=== PATIENT | female | born 1990 | race Caucasian/White ===

== ENCOUNTER 2018-01-04 18:46 | Outpatient (REF) | payer BC, SELFPAY ==
[2018-01-04 22:33] LABS: ALT 51 U/L (12-78); AST 22 U/L (15-37); Albumin 3.9 g/dL (3.4-5.0); Alkaline Phosphatase 98 U/L (46-116); Anion Gap 10.9 mmol/L (3-11); BUN 15 mg/dL (7-18); Bilirubin, Total 0.2 mg/dL (0.2-1.0); CO2 25.1 mmol/L (21.0-32.0); CREATININE 0.77 mg/dL (0.55-1.02); Chloride 106 mmol/L (98-107); Glucose 81 mg/dL (70-100); Potassium 4.1 mmol/L (3.5-5.1); Sodium 142 mmol/L (136-145); Total Protein 7.7 g/dL (6.4-8.2)
== END 2018-01-04 19:06 ==
LOC: NCHCN 18:46
PROVIDERS: PCP Nurse Practitioner Family; Visit Provider Nurse Practitioner Family
DX: Z00.01 Encounter for general adult medical examination with abnormal findings (principal)
CPT/HCPCS: 80053

== ENCOUNTER 2019-11-29 03:03 | Outpatient (CLI) | payer MEDICAID, SELFPAY ==
[2019-11-29 10:17] LABS: HCG Quant, Pregnancy < 1 mIU/mL (1-3)
== END 2019-11-29 03:23 ==
PROVIDERS: PCP Registered Nurse
DX: N91.2 Amenorrhea, unspecified (principal)
CPT/HCPCS: 36415; 84702

== ENCOUNTER 2020-02-20 04:06 | Outpatient (CLI) | payer MEDICAID, SELFPAY ==
[2020-02-20 13:02] LABS: HCG Quant, Pregnancy 40 mIU/mL (1-3)
== END 2020-02-20 04:26 ==
PROVIDERS: PCP Registered Nurse
DX: Z32.01 Encounter for pregnancy test, result positive (principal)
CPT/HCPCS: 36415; 84702

== ENCOUNTER 2020-02-22 03:22 | Outpatient (CLI) | payer MEDICAID, SELFPAY ==
[2020-02-22 12:03] LABS: HCG Quant, Pregnancy 104 mIU/mL (1-3)
== END 2020-02-22 03:42 ==
PROVIDERS: PCP Registered Nurse
DX: Z32.01 Encounter for pregnancy test, result positive (principal)
CPT/HCPCS: 36415; 84702

== ENCOUNTER 2020-03-06 20:48 | Outpatient (CLI) | payer MEDICAID, SELFPAY ==
[2020-03-06 14:29] LABS: HCG Quant, Pregnancy 8968 mIU/mL (1-3)
== END 2020-03-06 21:08 ==
PROVIDERS: PCP Registered Nurse; Visit Provider Advanced Practice Midwife
DX: O20.0 Threatened abortion (principal)
CPT/HCPCS: 36415; 86850; 86900; 86901; 84702

== ENCOUNTER 2020-04-07 14:14 | Emergency (ER) | payer MEDICAID, SELFPAY ==
[2020-04-07 14:35] VITALS: BP 107/80; PULSE 73; RESP 16; TEMP 36.1; O2SAT 99
--- NOTE | 2020-04-07 14:45 | W.ED.GENAD ---
Discharge Plan Disposition Patient Disposition: HOME Condition: Stable Discharge Details Clinical Impression: Lumbosacral strain, Primary Care Provider: KANIKA SANTOS ED Provider: Daisy Houston Home Meds and New Rx's Prescriptions: Continued prenat.vits,candelaria,jof-nyma-hgvbj Tablet See Rx Instructions PO DAILY RF: 0 cholecalciferol (vitamin D3) 25 mcg (1,000 unit) capsule 25 mcg PO DAILY RF: 0 Unisom (doxylamine) 25 mg Tablet 25 mg PO QHS PRNRF: 0 vitamin B6-vitamin E-magnesium Tablet 1 tab PO TID RF: 0 Discharge Instructions Instructions: (ED), Low Back Strain (ED) Additional Instructions: Follow up with primary care provider in 3-5 days. Return to ED sooner if any worsening or concerns. Increase oral fluids. Please take Tylenol with food every 4-6 hours as needed for pain and swelling. Please return to the ED for any vaginal bleeding, worsening abdominal pain, or any concerns. Alternate ice and heat to your lower back. Today we were able to see the baby moving and babies heart beat on bedside ultrasound. Referrals: KANIKA SANTOS, CORE DRILLING SUPERVISOR [Primary Care Provider] - Medical Decision Making 29-year-old female presents to the ED with chief complaint of abdominal cramping and left lower lumbar tenderness after a abdominal injury yesterday. Patient is 10 weeks 2 para 1. She reports that she went to grab her 3-year-old who was falling over a gate, caught him leaning over a gate hitting her abdomen. Since then she has had intermittent abdominal cramping, some left flank pain with sharp shooting pain that are worse with walking and movement. There is no contusions or abrasions noted to her abdominal wall. movement was noted at bedside ultrasound and heart activity. M-mode not functional during exam was unable to document the heartbeat. Patient denies any vaginal discharge or bleeding. Patient did take Tylenol prior to arrival. 1451: Page out to on-call MANAGER LAUNDRY for consult and possible monitoring. At this time movement and heart activity was noted on bedside ultrasound. Patient does not have any vaginal discharge or bleeding I do suspect that this is a musculoskeletal strain however I will consult with MANAGER LAUNDRY. Spoke with Jenifer Bustamante who is on-call for MANAGER LAUNDRY services discussed patient case in details with her she does not recommend any need for monitoring upon the floor she states that the bedside ultrasound with activity and heart movement should be fine. At this time most likely etiology is musculoskeletal pain and lumbar sacral strain. Discussed home care and strict return instructions with patient who verbalized understanding. This text was generated using [employer] dictation system, please disregard any oddities of phrase or misspellings. HPI General Mode of arrival: ambulatory. Date/Time Provider Initiated Documentation: 04/07/20 14:19. Limitations to Documentation: no limitations. Information obtained by: patient. HPI Narrative: 29-year-old female presents to the ED with chief complaint of abdominal cramping and left lower lumbar tenderness after a abdominal injury yesterday. Patient is 10 weeks 2 para 1. She reports that she went to grab her 3-year-old infant who was falling over a gate, caught him leaning over a gate hitting her abdomen. Since then she has had intermittent abdominal cramping, some left flank pain with sharp shooting pain that are worse with walking and movement. There is no contusions or abrasions noted to her abdominal wall. movement was noted at bedside ultrasound and heart activity. M-mode not functional during exam was unable to document the heartbeat. Patient denies any vaginal discharge or bleeding. Patient did take Tylenol prior to arrival. Related Data Home Medications Medication Instructions Recorded Confirmed cholecalciferol (vitamin D3) 25 25 mcg PO DAILY 03/06/20 04/07/20 mcg (1,000 unit) capsule prenat.vits,candelaria,[id number]-pdihn See Rx Instructions PO DAILY 03/06/20 04/07/20 Unisom (doxylamine) 25 mg PO QHS PRN 04/07/20 04/07/20 vitamin B6-vitamin E-magnesium 1 tab PO TID 04/07/20 04/07/20 Allergies Allergy/AdvReac Type Severity Reaction Status Date / Time Sulfa (Sulfonamide Allergy Intermediate vomiting Verified 04/07/20 14:40 Antibiotics) General Stated Complaint: Abd Prob YASEMIN: 3 Review of Systems Narrative: Constitutional: Negative for weight loss, alert and oriented, well groomed, normal body habitus, appears comfortable. HEENT: Denies trauma, headaches, blurry vision, nasal discharge, sore throat, trouble swallowing. Chest: Denies chest pain, palpitations, irregular rhythm, hypertension. Respiratory: Denies Shortness of breath, cough, hemoptysis. GI: Denies abdominal pain, nausea, vomiting, diarrhea, constipation. : Denies dysuria, hematuria, flank pain, rectal bleeding. Neuro: Denies dizziness, blurry vision, weakness, syncope, headache or facial numbness. Hematologic: Denies easy bruising, intolerance to heat or cold, hair loss. [facility] Social History Smoking/Tobacco Use Status: Never Smoking risk assessment performed?: Yes Alcohol Intake: never Drug use: Never Substance use type: does not use Do you feel safe at home: Yes Do you feel safe in your relationship?: Yes History History 3 Para 1 Hx # Term Pregnancies 1 Multiple births 0 Hx # Pregnancies 0 Ectopic pregnancies 0 AB induced 0 Hx Number of Living Children 1 AB spontaneous 1 Exam Narrative Exam Narrative: Constitutional: Alert and oriented x3. Appears stated age. Normal body habitus. Head: Normocephalic, no trauma. Eyes: Pupils PERRLA, Red reflex noted, EOM's intact. Eyelids symmetrical without lesions, discharge, or swelling. ENT: Bilateral TM's WNL, External ear normal to inspection, no mastoid TTP, swelling, or erythema, Nasal turbinates WNL, no nasal discharge. Normal dentition, Posterior pharynx WNL, no exudate. Chest: RRR, Normal S1, S2, distal pulses intact. Resp: Lungs clear to auscultation bilaterally, no wheezes, rales, or rhonchi. Musculoskeletal: Normal gait, 5/5 strength to all four extremities. Abdomen: Soft, nondistended, nontender to palpation. No signs of injury noted on abdominal wall, Skin: No suspicious rashes or lesions. Capillary refill less than 2 sec. Neurologic: Cranial nerves II-XII intact. Alert and oriented x 3. DTR's intact. Hematologic/Lymphatic: No ecchymosis, no lymphadenopathy. Course Vital Signs Vital signs: Vital Signs Temperature 36.1 C L 04/07/20 14:35 Pulse 73 04/07/20 14:35 Respiratory Rate 16 04/07/20 14:35 Blood Pressure 107/80 04/07/20 14:35 Pulse Oximetry 99 04/07/20 14:35 Temperature 36.1 C L 04/07/20 14:35 Temperature Source Temporal Artery Scan 04/07/20 14:35 Pulse 73 04/07/20 14:35 Respiratory Rate 16 04/07/20 14:35 Respiratory Effort Non-Labored 04/07/20 14:39 Blood Pressure 107/80 04/07/20 14:35 Blood Pressure Position Supine 04/07/20 14:35 Pulse Oximetry 99 04/07/20 14:35 Oxygen Delivery Method Room Air 04/07/20 14:35 Oxygen Flow Rate 0 04/07/20 14:35 Pain Level 5 04/07/20 14:43
== END 2020-04-07 19:20 | disposition home or self-care (01) ==
LOC: ER 20:28
PROVIDERS: Emergency Provider Registered Nurse Emergency; PCP Registered Nurse
DX: O99.891 Other specified diseases and conditions complicating pregnancy (principal); S39.092A Other injury of muscle, fascia and tendon of lower back, initial encounter; W01.198A Fall on same level from slipping, tripping and stumbling with subsequent striking against other object, initial encounter; Z3A.10 10 weeks gestation of pregnancy
CPT/HCPCS: 99282; 99283

== ENCOUNTER 2020-04-09 04:06 | Outpatient (CLI) | payer MEDICAID, SELFPAY ==
[2020-04-09 15:50] LABS: Kit/Specimen SENT
[2020-04-09 16:31] LABS: Abs Immature Grans 0.06 10^3/uL (0.0-0.06); Absolute Basophil Count 0.03 10^3/uL (0.0-0.2); Absolute Eosinophil Count 0.05 10^3/uL (0.0-0.7); Absolute Monocyte Count 0.63 10^3/uL (0.1-0.8); Absolute Neutrophil Count 8.28 10^3/uL (1.2-6.7); Basophils % 0.3; Eosinophils % 0.4; HCT 39.1 % (36.0-46.0); HGB 13.7 g/dL (11.2-15.7); Immature Grans % 0.5; MCH 32.5 pg (27.0-33.0); MCV 92.7 fL (80-95); MPV 9.2 fL (8.0-11.0); Monocytes % 5.5; Neutrophils % 72.3; Nucleated RBC 0 %; Platelet Count 309 10^3/uL (130-400); RBC 4.22 10^6/uL (3.93-5.22); RDW 12.2 % (11.7-14.6); WBC 11.45 10^3/uL (4.4-10.8)
[2020-04-09 16:55] LABS: TSH (W/Ref FT4) 1.23 uIU/mL (0.36-3.74)
[2020-04-11 09:16] LABS: Hepatitis B Surface Ag Negative (Negative)
[2020-04-11 09:59] LABS: HIV-1/2 Ag & Ab Screen Negative (Negative)
[2020-04-11 10:10] LABS: Hepatitis C Ab w Rflx HCV PCR Negative (Negative)
[2020-04-11 10:39] LABS: Varicella IgG Antibody Positive (See Note)
[2020-04-11 10:42] LABS: Rubella IgG Ab (UVM) Positive (See Note)
[2020-04-11 14:13] LABS: Syphilis Total Ab w/Reflex Nonreactive (Nonreactive)
[2020-04-16 16:10] LABS: Result Summary NEGATIVE; Specimen WB Whole Blood
== END 2020-04-09 04:26 ==
PROVIDERS: Advanced Practice Midwife; PCP Registered Nurse; Visit Provider Advanced Practice Midwife
DX: Z34.91 Encounter for supervision of normal pregnancy, unspecified, first trimester (principal); Z11.4 Encounter for screening for human immunodeficiency virus [HIV]; Z11.59 Encounter for screening for other viral diseases
CPT/HCPCS: 36415; 86787; 86803; 87340; 87389; 81220; 84443; 85025; 86762; 86780

== ENCOUNTER 2020-04-09 16:00 | Outpatient (REF) | payer MEDICAID, SELFPAY ==
--- NOTE | 2020-04-09 15:00 | PAPFT_PTH ---
PATIENT: Lorrie Pedersen LOC: [facility] U#:[id number] AGE/SX: 29/F ROOM: RE04/09/[address]: Cecilia Pinto CNM : 1990 BED: DIS: 04/09/2020 SPEC #: [id number] RECD: 04/09/20 18:31 STATUS: CHRISTIANO REDanyelle #: [id number] STEVEN: 04/09/20 15:[address]: Cecilia Pinto DEPT: [facility] Cytology RECD BY: Angelina James ENTERED: 04/09/20 18:32 SP TYPE: PAPFT OTHR DR: Laya Owen Tissues: 1 - CX/ENDOCX FOR PAP SMEARS Procedures: PAP THIN PREP/UVM Screening HPV DNA PROBE Comments: [id number]
[2020-04-09 16:26] LABS: *AMPHETAMINES SCREEN URINE Negative (Negative); *BARBITURATES SCREEN URINE Negative (Negative); *BENZODIAZEPINES SCREEN URINE Negative (Negative); Cannabinoids THC Negative (Negative); Cocaine Screen,Urine Negative (Negative); METHADONE URINE SCREEN Negative (Negative); OPIATES URINE SCREEN Negative (Negative)
[2020-04-09 16:28] LABS: Tricyclic Antidepressants Negative (Negative)
[2020-04-11 15:30] LABS: Chlamydia Result Negative (Negative); GC Result Negative (Negative)
[2020-04-17 13:48] LABS: Buprenorphine Negative; Norbuprenorphine Negative
== END 2020-04-09 16:20 ==
LOC: LBN 16:00
PROVIDERS: PCP Registered Nurse; Visit Provider Advanced Practice Midwife
DX: Z12.4 Encounter for screening for malignant neoplasm of cervix (principal); Z34.91 Encounter for supervision of normal pregnancy, unspecified, first trimester
CPT/HCPCS: 80307; 87491; 87591; 88142; 87086; 87624

== ENCOUNTER 2020-05-13 01:34 | Outpatient (CLI) | payer MEDICAID, SELFPAY ==
--- NOTE | 2020-05-13 08:00 | DI.US_ITS ---
EXAM: US BREAST LT COMPLETE CLINICAL HISTORY: breast pain 10:30-11:00 O'Clock in left breast,MASTODYNIA,N64.4 TECHNIQUE: Ultrasound right breast performed using standard protocol. COMPARISON: No exams were available for comparison FINDINGS: No solid or cystic masses, hypoechoic foci, areas of abnormal shadowing, or areas of skin thickening. No evidence of ductal dilatation. IMPRESSION: No sonographically suspicious finding. BI-RADS Category 1 - Negative DATA REPOSITORY:
== END 2020-05-13 01:35 ==
PROVIDERS: PCP Registered Nurse; Visit Provider Advanced Practice Midwife
DX: N64.4 Mastodynia (principal)
CPT/HCPCS: 76642

== ENCOUNTER 2020-06-04 01:16 | Outpatient (CLI) | payer MEDICAID, SELFPAY ==
--- NOTE | 2020-06-04 08:15 | DI.US_ITS ---
EXAM: US OB 2-3 TRIMESTER CLINICAL HISTORY: ,Z34.90. TECHNIQUE: Transabdominal obstetrical ultrasound was performed. COMPARISON: None this gestation FINDINGS: There is a single viable intrauterine gestation with cardiac activity identified-139 bpm. Amniotic fluid: There is a normal amount of amniotic fluid. Placental location: The placenta is posterior fundal, right of center, grade 2,with no evidence of pl acenta previa.Distance from the tip of the placenta to the internal cervical os is 5.7 cm ANATOMY: A 3 vessel umbilical cord is seen. A four-chamber cardiac view was obtained. Right and left ventricular outflow tracts were imaged. There are no obvious abnormalities of the spinal column evident. There is no obvious abnormal ity of the anterior abdominal wall. stomach and urinary bladder are identified and there is no evidence of hydronephrosis. No abnormalities of the upper lip region are identified. No evidence of choroid plexus cysts i n the brain. Dating parameters place this at approximately 19 weeks and 2 days gestational age. BPD measures 19 weeks and 2 days HC measures 19 weeks 1 day AC measures 19 weeks and 2 days FL measures 19 weeks and 2 days Estimated weight is 283 gm-0 pounds 10 ounces Fetus is at the 97th percentile on the Hadlock scale. IMPRESSION:: Single viable intrauterine gestation which is approximately 19 weeks and 2 days gestati onal age, implying an BALAJI of October 27, 2020. There are no obvious anomalies evident on today's study. Resolution is somewhat less than optim al. The placenta is posterior fundal-right with no evidence of placenta previa. There is a normal amount of amniotic fluid. DATA REPOSITORY:
== END 2020-06-04 01:36 ==
PROVIDERS: PCP Registered Nurse; Visit Provider Advanced Practice Midwife
DX: Z34.92 Encounter for supervision of normal pregnancy, unspecified, second trimester (principal)
CPT/HCPCS: 76805

== ENCOUNTER 2020-07-02 03:21 | Outpatient (CLI) | payer MEDICAID, SELFPAY ==
[2020-07-02 12:38] LABS: Glucose,1 Hr (Glucola) 121 mg/dL (80-140)
== END 2020-07-02 03:22 | disposition home or self-care (01) ==
LOC: LBO 03:21
PROVIDERS: PCP Registered Nurse; Visit Provider Advanced Practice Midwife
DX: Z34.92 Encounter for supervision of normal pregnancy, unspecified, second trimester (principal); Z3A.22 22 weeks gestation of pregnancy
CPT/HCPCS: 36415; 82950

== ENCOUNTER 2020-07-04 09:58 | Emergency (ER) | payer MEDICAID, SELFPAY ==
[2020-07-04] VITALS (27 sets, daily range): BP systolic 100–128; BP diastolic 64–82; PULSE 81–108; RESP 14; TEMP 37.1; O2SAT 98–100
--- OUTSIDE RECORDS SUMMARY | 2020-07-04 10:04 | XMS_ITS | Encounter Summary ---
:1990 Author Organization Department of [facility] Address [address] [place] [id number] Support Name Relationship Address Phone NONE Unavailable Unavailable Unavailable Selected Encounter This section includes the information on record at [place] for the Encounter. Date/Time Encounter Type Encounter Description Reason Provider Source Jul 02, 2020 11:16 Outpatient Encounter GENERAL INTERNAL AM MEDICINE IHE Encounter Template Text not used by [facility] Encounter Notes: All associated encounter notes This section contains the clinical notes associated to the Encounter. Date/Time Encounter Note(s) Provider Source Jul 02, 2020 11:16 AM INFECTIOUS DISEASE COUNSELING CONSULT: CAROLYN LAI [facility] LOCAL TITLE: COVID NICKO VACCINE FOLLOW-UP [place] [facility] STANDARD TITLE: INFECTIOUS DISEASE COUNSELING CO NSULT DATE OF NOTE: JUL 02, 2020@11:16 ENTRY DATE: JUL 02, 2020@11:16:16 AUTHOR: CAROLYN BENSON EXP COSIGNER: URGENCY: STATUS: COMPLETED Nicko (Wilmar & Wilmar) COVID-19 Vaccine Jailyn ck-in Call: Assessed and discussed 's understanding o f the Nicko vaccine pause. Discussed this was done out of an abundance of c aution and in keeping with strong safety measures used by [facility] to protect Veterans who have been vaccinated with COVID-19 vaccines, [facility] as paused the use of this vaccine. The pause is due to reports of 6 cases of the rare blood clots, all in adult women under 50, and all occurred within 6 to 13 days after the women received a Nicko (also known as Wilmar & Wilmar) vaccine and emphasized th is event is very rare. Discussed the six events that did occur were in the first two weeks after receiving the Nicko (Wilmar and Wilmar) COVI D-19 vaccine so persons who received the vaccine more than two weeks ago wou ld be considered even less likely to have this happen. The type of blood clot that occurred is called Cerebral venous sinus thrombosis (or CVST). This type of blood clot forms in the brain and causes symptoms including headache, vision c hanges, or symptoms of a stroke. The people who have had this type of blood clot also have had low bl ood platelets. If you develop any of the follow symptoms please contact your healthcare team and inform them of your vaccination history: A headache that occurs 6 days or more aft er vaccination A headache that is different from other h eadaches you have had Confusion or trouble thinking clearly Visual changes, such as blurry vision Weakness, numbness, or trouble mo ving one or more parts of your body of your body, trouble speaking or seizures Tiny spots under the skin away from the area where you had the injection (this is a sign of low platelets) Discussed if your symptoms a re severe or you experience the following symptoms, please call 9-1-1: shortness of breath chest pain leg swelling persistent abdominal (belly) pain /es/ Carolyn Benson, Ph.D. Clinical Psychologist Signed: 07/02/2020 11:16
--- OUTSIDE RECORDS SUMMARY | 2020-07-04 10:04 | XMS_ITS | Encounter Summary ---
:1990 Author Organization Department of [facility] rs Address [address] [place] [id number] Support Name Relationship Address Phone NONE Unavailable Unavailable Unavailable Selected Encounter This section includes the information on record at [place] for the Encounter. Date/Time Encounter Type Encounter Reason Provider Source Description Jun 28, 2020 ADM SARSCOV2 GENERAL INTERNAL ICD-10-CM Z23 GEORGE LEVY 12:30 PM VAC AD26 .5ML MEDICINE Encounter for HER immunization with Provider Comments: Encounter for Immunization IHE Encounter Template Text not used by [place] Assessments - Encounter Diagnoses This section includes the primary and secondary diagnoses documented forthe Encounter. Date/Time Primary/Secondary Diagnosis Name Provider Source Diagnosis Jun 28, 2020 PRIMARY Encounter for JESS LEVY 12:59 PM immunization ER [facility] Surgical Procedures: All associated to the encounter This section includes all Surgical Procedures and Surgical Procedure Notes associated to the Encounter.Surgical Procedures This section includes all Surgical Procedures associated to the Encounter.Surgical Procedure Date/Time Procedure Procedure Type Procedure Provider Source Qualifiers Jun 28, 2020 ADM SARSCOV2 ADM SARSCOV2 MAGGIE LEVY 12:30 PM VAC AD26 .5ML VAC AD26 .5ML HER [facility] Surgical Notes There are no notes associated with this procedure. Surgical Procedure Date/Time Procedure Procedure Type Procedure Provider Source Qualifiers Jun 28, 2020 ADM SARSCOV2 VAC ADM SARSCOV2 WILMAN JONES BERGENFIELD 12:30 PM AD26 .5ML AD26 .5ML [facility] Surgical Notes There are no notes associated with this procedure. Immunizations: All administered on the encounter date This section contains immunizations associated to the Encounter. Immunization Series Date Issued Reaction Comments COVID-19 (NICKO), VECTOR-NR, 1 Jun 28, 2020 JSN; [id number]; 09/08/2020 RS-AD26, PF, 0.5 ML Encounter Notes: All associated encounter notes This section contains the clinical notes associated to the Encounter. Date/Time Encounter Note(s) Provider Source Jun 28, 2020 12:58 PM NURSING IMMUNIZATION NOTE: МАРИНА LEVY [facility] LOCAL TITLE: VAAES NSG COVID-19 VACCINE ADMINIS TRATION [facility] STANDARD TITLE: NURSING IMMUNIZATION NOTE DATE OF NOTE: JUN 28, 2020@12:58 ENTRY DATE: JUN 28, 2020@12:58:50 AUTHOR: RICCI LEVY EXP COSIGNER: URGENCY: STATUS: COMPLETED The patient was given the EUA fact sheet for thi s vaccine which lists the benefits and side effects of the vacc ine and which reviews the risks of the vaccine. The fact shee t was reviewed with the patient and they were given an opportunity to ask questions. The patient denied any prior severe reaction to this vaccine or its components. The patient gave verbal consent to receive the v accine. The patient received [place] COVID-19 Vaccine 0. 5 ml IM. MVX (Manuf); Lot#; Exp Date: JSN; [id number]; Administration Anatomic site: Left Deltoid Vaccine administered without complications. Th e patient was advised to remain in the facility for 15 андрей denise post vaccination. The patient was given a completed COVID-19 vac cination record card, a copy of the [place] Side Effects and Adverse Ivelisse nts Reporting Fact Sheet and instructed on how to report any adv erse reactions. /gus/ RICCI LEVY LPN Signed: 06/28/2020 12:59
--- NOTE | 2020-07-04 10:30 | DI.MRI_ITS ---
EXAM: MR ANGIO BRAIN WO CLINICAL HISTORY: concern for possible venous sinus thrombus ALAN in p TECHNIQUE: Multiplanar multisequence MRI of the brain was performed. COMPARISON: No exams were available for comparison FINDINGS: Non-contrast MRV was performed according to protocol. No filling defects are seen to suggest venous thrombosis. IMPRESSION: Normal noncontrast MRV. Results of this exam have been verbally communicated with provider. DATA REPOSITORY:
[2020-07-04 11:05] LABS: Bilirubin Negative (Negative); Blood Negative (Negative); Clarity Clear (Clear); Glucose Negative (Negative); Ketones Negative (Negative); Leukocyte Esterase Negative (Negative); Nitrite Negative (Negative); Specific Gravity >= 1.030 (1.005-1.025); Urobilinogen 0.2 EU/dL (Up TO 0.2)
[2020-07-04] MEDS: Metoclopramide 10 MG/2 ML VIAL IVP (11:07)
[2020-07-04] MEDS: diphenhydrAMINE 50 MG/ML VIAL IVP (11:07)
[2020-07-04] MEDS: Acetaminophen 500 MG TAB 1000 MG PO (11:07)
--- NOTE | 2020-07-04 11:15 | DI.MRI_ITS ---
EXAM: MR BRAIN WO CLINICAL HISTORY: headache, preg, j j vaccine TECHNIQUE: Multiplanar multisequence MRI of the brain was performed. COMPARISON: No exams were available for comparison FINDINGS: VENTRICLES AND EXTRA AXIAL SPACES: Normal in size and morphology for the patient's age. MIDLINE SHIFT: None. CEREBRAL PARENCHYMA: No focus of restricted diffusion to suggest acute infarct. No space-occupying le rock identified. HEMORRHAGE: None. BRAINSTEM/CEREBELLUM: Normal. CALVARIUM: Normal. VISUALIZED PARANASAL SINUSES/MASTOIDS:Clear. [place]: Normal flow void. PITUITARY GLAND: Unremarkable. OTHER FINDINGS: None. IMPRESSION: Unremarkable MRI of the brain. DATA REPOSITORY:
[2020-07-04 11:16] LABS: Abs Immature Grans 0.24 10^3/uL (0.0-0.06); Absolute Basophil Count 0.04 10^3/uL (0.0-0.2); Absolute Eosinophil Count 0.04 10^3/uL (0.0-0.7); Absolute Lymphocyte Count 1.92 10^3/uL (1.2-3.4); Absolute Monocyte Count 0.55 10^3/uL (0.1-0.8); Basophils % 0.4; Eosinophils % 0.4; HCT 39.7 % (36.0-46.0); HGB 13.3 g/dL (11.2-15.7); Immature Grans % 2.2; Lymphocytes % 17.4; MCHC 33.5 % (32.0-36.0); MCV 95.7 fL (80-95); MPV 8.8 fL (8.0-11.0); Neutrophils % 74.6; Nucleated RBC 0 %; Platelet Count 275 10^3/uL (130-400); RBC 4.15 10^6/uL (3.93-5.22); RDW-SD 45.8 fL; WBC 11.02 10^3/uL (4.4-10.8)
[2020-07-04 11:19] LABS: Absolute Neutrophil Count 8.22 10^3/uL (1.2-6.7)
[2020-07-04 11:28] LABS: ALT 18 U/L (14-59); AST 8 U/L (15-37); Albumin 3.1 g/dL (3.4-5.0); Alkaline Phosphatase 76 U/L (46-116); Anion Gap 11.3 mmol/L (3-11); BUN 6 mg/dL (7-18); Bilirubin, Total 0.2 mg/dL (0.2-1.0); CO2 22.7 mmol/L (21.0-32.0); CREATININE 0.5 mg/dL (0.55-1.02); Calcium 8.6 mg/dL (8.5-10.1); Chloride 106 mmol/L (98-107); Glucose 106 mg/dL (74-106); Potassium 3.6 mmol/L (3.5-5.1); Sodium 140 mmol/L (136-145); Total Protein 7.4 g/dL (6.4-8.2)
[2020-07-04] MEDS: Butalbital/Acetaminophen/Caffeine 50/325/40 TAB PO (13:16)
--- NOTE | 2020-07-04 13:45 | ED.GENADUL_ITS ---
Discharge Plan Disposition Patient Disposition: HOME Condition: Good Discharge Details Clinical Impression: Headache Primary Care Provider: KANIKA SANTOS ED Provider: Angelina Stewart Home Meds and New Rx's Prescriptions: No Action prenat.vits,candelaria,[id number] Tablet See Rx Instructions PO DAILY RF: 0 cholecalciferol (vitamin D3) 25 mcg (1,000 unit) capsule 25 mcg PO DAILY RF: 0 Unisom (doxylamine) 25 mg Tablet 25 mg PO QHS PRNRF: 0 Discharge Instructions Instructions: General Headache (ED) Additional Instructions: Today we have received 1-1/2 g of Tylenol in the emergency room today, do not exceed more than 4 g of Tylenol in a day Follow-up with please follow-up with your [employer] or primary care physician on Tuesday for reevaluation and return to the emergency room with worsening headache, fever, chills, or with any new or progressing symptoms as he should be reevaluated Increase your fluid hydration Medical Decision Making Patient is alert, oriented, of decisional capacity Her MRI and MRV did not show evidence of venous sinus thrombus, and she does not have evidence of meningismus Given her persistent headache, I did discuss lumbar puncture and patient has declined at this time She is alert, oriented, of decisional capacity, she has neurologically intact She did not have significant improvement with interventions performed in the emergency room No evidence of preeclampsia, no hypertension, electrolytes and liver function tests within normal limits, no proteinuria Case discussed with Dr. Almazan regarding migraine medication and she did relay that most analgesia is tolerated in , I did give patient a dose of Fioricet after discussing the benefits, patient also received Reglan and Benadryl for migraine prophylaxis and was placed on oxygen given 1 L of normal saline We did perform a occipital block which patient has declined She is given very low threshold to return with new or worsening complaints She is discharged home in stable condition with stable vitals She should have recheck in 24 to 48 hours Neurologically intact Differential Diagnosis Differential Diagnosis: Meningitis, migraine headache, carbon monoxide exposure, preeclampsia Medical Records Medical records reviewed: Yes I reviewed the patient's medical records. Lab Data Lab results reviewed: Yes I reviewed the patient's lab results. HPI This 29-year-old female presents with headache which started last evening. She states she has a remote history of headaches but has not experienced similar to this in a while. She states it came on gradually. Denies fever or chills. She is approximately 22 weeks . Denies stiff neck but does states she has mild increase in pain when she turns her neck to the left. Denies photophobia or phonophobia. Denies carbon monoxide exposure. Denies known exposure to sick contacts. She denies prior history of preeclampsia, she is 2 para 1. Denies any abdominal pain or vaginal bleeding. Denies any peripheral edema. General Date/Time Provider Initiated Documentation: 07/04/20 10:14 . Related Data Home Medications Medication Instructions Recorded Confirmed cholecalciferol (vitamin D3) 25 25 mcg PO DAILY 03/06/20 07/04/20 mcg (1,000 unit) capsule prenat.vits,candelaria,[id number] See Rx Instructions PO DAILY 03/06/20 07/04/20 Unisom (doxylamine) 25 mg PO QHS PRN 04/07/20 07/04/20 Allergies Allergy/AdvReac Type Severity Reaction Status Date / Time Sulfa (Sulfonamide AdvReac Intermediate vomiting Verified 07/04/20 10:09 Antibiotics) General Stated Complaint: Orthopedic YASEMIN: 3 Review of Systems Narrative: Review of systems obtained x7 aside from where indicated in HPI [facility] Medical History (Updated 07/04/20 @ 14:10 by LEVI Colon) Breast pain, left Depression PCOS (polycystic ovarian syndrome) Treated with metformin in the past Social History Smoking/Tobacco Use Status: Never Smoking risk assessment performed?: Yes Alcohol Intake: never Drug use: Never Substance use type: does not use Do you feel safe at home: Yes Do you feel safe in your relationship?: Yes History History 3 Para 1 Hx # Term Pregnancies 1 Multiple births 0 Hx # Pregnancies 0 Ectopic pregnancies 0 AB induced 0 Hx Number of Living Children 1 AB spontaneous 1 Past Pregnancies Del. Date GA/Weeks # Outcome Route Wgt Sex Labor Lgth Anesthes ia Location Prov Complic 12/31/16 41 No Successful vaginal 3033.399 g Male 27 hrs regional [facility] Delivery Date: 12/31/16 IOL for low fluid and postdates, had a arceo cath (hated it), amnioinfusion for decels, epidural, quick 2nd stage. Carlos Contreras,Juju Course Vital Signs Vital signs: Vital Signs Temperature 37.1 C 07/04/20 10:04 Pulse 108 H 07/04/20 10:04 Respiratory Rate 14 07/04/20 10:04 Blood Pressure 128/78 07/04/20 10:04 Pulse Oximetry 98 07/04/20 10:04 Temperature 37.1 C 07/04/20 10:04 Temperature Source Oral 07/04/20 10:04 Pulse 81 07/04/20 12:43 Respiratory Rate 14 07/04/20 10:04 Respiratory Effort Non-Labored 07/04/20 12:46 Respiratory Depth Normal 07/04/20 12:46 Respiratory Pattern Normal 07/04/20 12:46 Blood Pressure 109/82 07/04/20 12:43 Blood Pressure Mean 88 07/04/20 12:43 Blood Pressure Position Sitting 07/04/20 10:04 Pulse Oximetry 99 07/04/20 12:43 Oxygen Delivery Method Room Air 07/04/20 12:46 Oxygen Flow Rate 0 07/04/20 12:46 Pain Level 8 07/04/20 10:04 Lab/Test Results Lab/Test Results: Laboratory Tests Range/Units 07/04/20 07/04/20 07/04/20 10:55 11:04 11:04 WBC (4.4-10.8) 10^3/uL 11.02 H RBC (3.93-5.22) 10^6/uL 4.15 Hgb (11.2-15.7) g/dL 13.3 Hct (36.0-46.0) % 39.7 MCV (80-95) fL 95.7 H MCH (27.0-33.0) pg 32.0 MCHC (32.0-36.0) % 33.5 RDW (11.7-14.6) % 13.0 Plt Count (130-400) 10^3/uL 275 MPV (8.0-11.0) fL 8.8 Immature Gran % 2.2 Neutrophils % 74.6 Lymphocytes % 17.4 Monocytes % 5.0 Eosinophils % 0.4 Basophils % 0.4 Nucleated RBC % % 0 Absolute Neutrophils (1.2-6.7) 10^3/uL 8.22 H Absolute Lymphocytes (1.2-3.4) 10^3/uL 1.92 Absolute Monocytes (0.1-0.8) 10^3/uL 0.55 Absolute Eosinophils (0.0-0.7) 10^3/uL 0.04 Absolute Basophils (0.0-0.2) 10^3/uL 0.04 Sodium (136-145) mmol/L 140 Potassium (3.5-5.1) mmol/L 3.6 Chloride (98-107) mmol/L 106 Carbon Dioxide (21.0-32.0) mmol/L 22.7 Anion Gap (3-11) mmol/L 11.3 H BUN (7-18) mg/dL 6 L Creatinine (0.55-1.02) mg/dL 0.5 L Estimated GFR/1.73 m2 (mL/min/1.73m2) >= 60.00 Glucose (74-106) mg/dL 106 Calcium (8.5-10.1) mg/dL 8.6 Total Bilirubin (0.2-1.0) mg/dL 0.2 AST (15-37) U/L 8 L ALT (14-59) U/L 18 Alkaline Phosphatase (46-116) U/L 76 Total Protein (6.4-8.2) g/dL 7.4 Albumin (3.4-5.0) g/dL 3.1 L Urine Color (Yellow) Yellow Urine Clarity (Clear) Clear Urine pH (5-8) 6.0 Ur Specific [place] (1.005-1.025) >= 1.030 H Urine Protein (Negative) mg/dL Negative Urine Ketones (Negative) mg/dL Negative Urine Blood (Negative) Negative Urine Nitrite (Negative) Negative Urine Bilirubin (Negative) Negative Urine Urobilinogen (Up TO 0.2) EU/dL 0.2 Ur Leukocyte Esterase (Negative) Negative Urine Glucose (Negative) mg/dL Negative POC- Test(urine) Positive
== END 2020-07-04 15:09 | disposition home or self-care (01) ==
PROVIDERS: Emergency Provider Physician Assistant; PCP Registered Nurse
DX: O99.352 Diseases of the nervous system complicating pregnancy, second trimester (principal); Z3A.22 22 weeks gestation of pregnancy
CPT/HCPCS: 36415; 70544; 80053; 96374; 96375; 99285; 70551; 81003; 85025; 99281; J1200; J2765

== ENCOUNTER 2020-08-13 03:20 | Outpatient (CLI) | payer MEDICAID, SELFPAY ==
[2020-08-13 10:26] LABS: HCT 37.1 % (36.0-46.0); HGB 12.7 g/dL (11.2-15.7); MCH 32.4 pg (27.0-33.0); MCHC 34.2 % (32.0-36.0); MCV 94.6 fL (80-95); MPV 9.2 fL (8.0-11.0); Platelet Count 267 10^3/uL (130-400); RBC 3.92 10^6/uL (3.93-5.22); RDW 13.2 % (11.7-14.6); RDW-SD 45.9 fL; WBC 12.04 10^3/uL (4.4-10.8)
[2020-08-13 10:31] LABS: Glucose,1 Hr (Glucola) 150 mg/dL (80-140)
[2020-08-13 10:39] LABS: ALT 16 U/L (14-59); AST 10 U/L (15-37); Albumin 2.9 g/dL (3.4-5.0); Alkaline Phosphatase 85 U/L (46-116); Bilirubin, Direct 0.1 mg/dL (0.0-0.2); Bilirubin, Total 0.3 mg/dL (0.2-1.0)
[2020-08-14 14:47] LABS: Bile Acids, Total 4 mcmol/L (<=10)
== END 2020-08-13 03:21 | disposition home or self-care (01) ==
PROVIDERS: Advanced Practice Midwife; PCP Registered Nurse; Visit Provider Advanced Practice Midwife
DX: O26.86 Pruritic urticarial papules and plaques of pregnancy (PUPPP) (principal); Z3A.28 28 weeks gestation of pregnancy
CPT/HCPCS: 36415; 80076; 82950; 85027; 82239

== ENCOUNTER 2020-08-13 11:10 | Outpatient (REF) | payer MEDICAID, SELFPAY | END 2020-08-13 11:11 | disposition home or self-care (01) | LOC: LBN 11:10 | PROVIDERS: PCP Registered Nurse; Visit Provider Advanced Practice Midwife | DX: N89.8 Other specified noninflammatory disorders of vagina (principal); O26.86 Pruritic urticarial papules and plaques of pregnancy (PUPPP) | CPT/HCPCS: 87480; 87510; 87660 ==

== ENCOUNTER 2020-09-02 10:29 | Outpatient (CLI) | payer MEDICAID, SELFPAY ==
[2020-09-02 10:52] VITALS: BP 129/88; PULSE 101
--- NOTE | 2020-09-02 11:02 | HPE_ITS ---
Date of service: 09/02/20 Time of Service: 11:03 Assessment and Plan Assessment and plan (1) Vaginal discharge during in third trimester: Start date: 09/02/20 Start time: 11:10 Status: Acute Assessment and plan: Will do SSE and check for fluid in cul de sac as well as ferning test and vaginal pathogen culture. Sending Pro/Creat Ratio stat and will obtain clean catch urine for culture as well. (2) Irregular uterine contractions: Start date: 09/02/20 Start time: 11:11 Status: Acute Assessment and plan: No contractions noted on toco. Patient is noting movement. Will do SSE and assess cervix thickness /dilation visually and consult with MD as indicated. OB-HPI Labor/Delivery History of Present Illness Reason for Visit: NST Chief Complaint: Uterine Contractions. BALAJI Calculator Estimated Delivery Date Method Current WG Current Estimate 11/04/20 Ultrasound #1 31w 0d Other Estimates 10/29/20 LMP (Certain) 31w 6d Comments: Lorrie reports having some vaginal discharge that is clear and comes in small gushes off an on for a couple of weeks. States it has been enough to make her underwear wet at times. Was diagnosed with monilial vaginitis 08/13 and treated. Denies itching at this time. She also reports occasional contractions and an intermittent sharp stinging / burning sensation similar to when she has her period that is occurring low in her abdomen. That has also been happening for 3 days without increase in frequency or any abdominal tightening. States she is drinking plenty of water and dose not feel dehydrated. Finally, she also reports just feeling foggy today and off. Had a headache that resolved with tylenol. Has had right upper quadrant pain but it is not consistent or bothering her at this time. reprots her 1 hour PP BG this morning was 139.KH History of Present Expected Delivery Route/Plan - CNM FOB/ - [place] Pedersen (second child together) BB yes to circ Specific Issues/Plan 1. Hx depression, used to take sertraline >1 yr ago 1a. PHQ9 score is 12, declines medication while , accepts [facility] referral; done 05/01 1b. plans to reach out to therapist she used to see in [place] 2. Desires [place] and CF testing, will draw today 2a. [place] result low prob x3, male. CF carrier screen negative 3. BMI @ 29, hx PCOS, will request pt do early glucola 3a. 22 wk [id number] 4. At initial OB, PAP nml/neg but w/fungal organisms, no sx, no tx 5. J&J COVID vaccine received 06/28/20 6. s/p cholecystectomy 2017 7. Elevated 1-hr GTT -150, Declines 3-hr GTT , will start glucose testing QID x 2 weeks. 8. Pruritis of legs and chest with rash - Liver enzymes WNL, Bile acids-4 8a. Itching improved with hydroxyzine. 9. Left breast pain - normal breast ultrasound 10. pelvis injury - chronic SI joint pain Assessment: History Reviewed & Current Review of Systems All systems reviewed & are unremarkable except as noted in HPI and below PFSH Medical History Breast pain, left Depression Injury of pelvis injury in the , surgery recommended after childbearing PCOS (polycystic ovarian syndrome) Treated with metformin in the past Family History (Updated 08/27/20 @ 10:44 by Juju Contreras CNM) Mother Diabetes type 2 Social History Smoking/Tobacco Use Status: Never Smoking risk assessment performed?: Yes Alcohol Intake: never Drug use: Never Substance use type: does not use Do you feel safe at home: Yes Do you feel safe in your relationship?: Yes History History 3 Para 1 Hx # Term Pregnancies 1 Multiple births 0 Hx # Pregnancies 0 Ectopic pregnancies 0 AB induced 0 Hx Number of Living Children 1 AB spontaneous 1 Past Pregnancies Del. Date GA/Weeks # Outcome Route Wgt Sex Labor Lgth Anesthes ia Location Prov Complic 12/31/16 41 No Successful vaginal 6 lb 11 oz Male 27 hrs regional [facility] Midwifery c Delivery Date: 12/31/16 IOL for low fluid and postdates, had a arceo cath (hated it), amnioinfusion for decels, epidural, quick 2nd stage. Juju Santana Allergies and Home Medications Allergies Allergy/AdvReac Type Severity Reaction Status Date / Time Sulfa (Sulfonamide AdvReac Intermediate vomiting Verified 08/27/20 09:51 Antibiotics) Home Medications Medication Instructions Recorded Confirmed Type cholecalciferol (vitamin D3) 25 25 mcg PO DAILY 03/06/20 07/04/20 History mcg (1,000 unit) capsule prenat.vits,candelaria,[id number] See Rx Instructions PO DAILY 03/06/20 07/04/20 History Unisom (doxylamine) 25 mg PO QHS PRN 04/07/20 07/04/20 History hydroxyzine HCl 25 mg tablet 25 mg PO BID PRN #60 tab 08/11/20 Rx blood sugar diagnostic #100 ea 08/13/20 Rx blood-glucose meter #1 ea 08/13/20 Rx lancets 28 gauge #100 ea 08/13/20 Rx Exam Physical Exam Vital signs: Pulse BP 101 H 129/88 09/02/20 10:52 09/02/20 10:52 Vital Signs Reviewed: Yes Detailed Labor and Delivery Exam Gutierrez Score: Cervical Points Exam 0 1 2 3 Dilation Closed 1-2cm 3-4 cm 5-6cm Effacement 0-30% 40-50% 60-70% 80% Consistency Firm Medium Soft Station -3 -2 -1,0 +1,+2 Position Posterior Mid Anterior Fetus A Heart Rate Baseline: 120 Monitor Accelerations: 15 X 15 Monitor Decelerations: None Variability: Moderate (6-25 BPM) Categories: Category I Risk Assessment Risk for Shoulder Dystocia Historical/Initial OB: NEGATIVE FOR: Pelvic Abnormality, Pre- BMI>30, Previous Shoulder Dystocia or Previous Macrosomia Risk for Pre-Eclampsia Yes, if one or more: NEGATIVE FOR: Hx Pre-E/Gest HTN, Chronic HTN, Multiple Gestation, Pre-gestational DM, Renal Disease, Systemic Lupus or APA Syndrome Yes, if 2 or more: NEGATIVE FOR: Nulliparity, Age>= 35 yrs, >10yr btwn pregnancies, BMI>30, ethinicty, Mother/Sister w/ Pre-E or Previous IUGR Risk for Post- Hemorrhage Initial: NEGATIVE FOR: Multiple Gestation, Previous PPH, Known Clotting Deficiency, Grand Multiparity or Anticoagulation Risks Reviewed Risks Reviewed Upon Admission: Yes
--- NOTE | 2020-09-02 11:32 | W.PM.PROGNOT ---
Date of Service Date of service: 09/02/20 Time of Service: 11:32 Assessment and Plan Assessment and plan (1) Vaginal discharge during in third trimester: Status: Acute Assessment and plan: Negative for ROM via visual assessment, nitrazine and ferning. Cervix long thick and closed. Will review pro/creat ratio once available and if normal will allow discharge to home to rest and call with any further concerns. If pro/creat ratio is elevated will get serum labs and consult with . NAVEEN Subjective Subjective Patient reports: no new complaints Exam Narrative Exam Narrative: SSE negative for pooling, small amount of white, physiologic appearing discharge noted. Cervix appears long thick and closed. Nitrazine negative for amniotic fluid and ferning is negative as well. NAVEEN Objective Last Vital Signs Pulse 101 H 09/02/20 10:52 BP 129/88 09/02/20 10:52 Objective Narrative Objective Narrative: awaiting Pro/Creat ratio.NAVEEN
[2020-09-02 11:52] LABS: PROTEIN 27.8 mg/dL
[2020-09-02 11:58] LABS: COMMENT (LAB VIEW ONLY) 211.78 mg/dL; Prot/Crea Ur Ratio 0.13
--- NOTE | 2020-09-02 12:36 | DSE_ITS ---
Date of service: 09/02/20 Time of Service: 12:36 DS: Diagnosis Discharge Diagnosis (1) Vaginal discharge during in third trimester: Status: Acute Asessment and Plan: will notify patient of results of vaginal pathogen test as indicated. KRISTEL 13.2 with bedside US in by Mabel Pinto CNM. Patient is reassured.KH Discharge Plan Disposition Patient Disposition: HOME Condition: Stable Discharge Details Reason For Visit: NST Attending Provider: Juju Chapman Primary Care Provider: Laya Owen Home Meds and New Rx's Prescriptions: No Action prenat.vits,candelaria,zhu-eweu-nttca Tablet See Rx Instructions PO DAILY RF: 0 cholecalciferol (vitamin D3) 25 mcg (1,000 unit) capsule 25 mcg PO DAILY RF: 0 hydroxyzine HCl 25 mg tablet 25 mg PO BID PRN (Reason: itching) Qty: 60 RF: 0 (DME) blood-glucose meter [FreeStyle Lite Meter] Kit See Rx Instructions .ROUTE .MEDSUPPLY Qty: 1 RF: 0 (DME) FreeStyle Lite Strips Strip See Rx Instructions .ROUTE .MEDSUPPLY Qty: 100 RF: 3 (DME) lancets [FreeStyle Lancets] 28 gauge misc See Rx Instructions .ROUTE .MEDSUPPLY Qty: 100 RF: 3 Unisom (doxylamine) 25 mg Tablet 25 mg PO QHS PRNRF: 0 Discharge Instructions Activity:: Activity as Tolerated Activity:: Activity as Tolerated Equipment/Supplies:: No Equipment Needed Diet:: GDM diet Discharge Data Discharge Date/Time-TO BE ENTERED AT DEPARTURE: 09/02/20 12:40 Discharge Physician: Juju Chapman Procedure Procedures: Ultrasound (vaginal discharge in third trimester, history of oligohydramnios) , indication: vaginal discharge in third trimester, history of oligohydramnios , KRISTEL (done by Mabel Pinto CNM) , results of KRISTEL: 13.2 OB:DS Summary Contraception Discussed Contraception Discussed: No (antepartum patient, N/A), Status at Discharge Functional status at discharge: independent ambulation Overall status at discharge: patient is back to baseline Mental Status: mental status grossly normal Speech and Movement: speech and movement normal Mood: congruent mood Affect: normal affect Exam Physical Exam Vital signs: Pulse BP 101 H 129/88 09/02/20 10:52 09/02/20 10:52 Vital Signs Reviewed: Yes Constitutional Constitutional: no acute distress HEENT Exam HEENT Exam: Normal Neck Exam Neck Exam: Not Done Respiratory Exam Respiratory Exam: Normal Cardiovascular Exam Cardiovascular Exam: Normal Fundal Exam Comment: fundal hieght equals dates.KH Rectal Exam Rectal Exam: Not Done Extremities Exam Extremity Exam: Normal Back/Spine/Pelvis Exam Back Exam: Not Done Skin Exam Skin Exam: Not Done Neurological Exam Neurological Exam: Normal Psychiatric Exam Psychiatric Exam: Normal Additional findings Additional findings: KRISTEL 13.2 [facility] Medical History Breast pain, left Depression Injury of pelvis injury in the , surgery recommended after childbearing PCOS (polycystic ovarian syndrome) Treated with metformin in the past Family History (Updated 08/27/20 @ 10:44 by Juju Contreras CNM) Mother Diabetes type 2 Social History Smoking/Tobacco Use Status: Never Smoking risk assessment performed?: Yes Alcohol Intake: never Drug use: Never Substance use type: does not use Do you feel safe at home: Yes Do you feel safe in your relationship?: Yes History History 3 Para 1 Hx # Term Pregnancies 1 Multiple births 0 Hx # Pregnancies 0 Ectopic pregnancies 0 AB induced 0 Hx Number of Living Children 1 AB spontaneous 1 Past Pregnancies Del. Date GA/Weeks # Outcome Route Wgt Sex Labor Lgth Anesthes ia Location Prov Complic 12/31/16 41 No Successful vaginal 6 lb 11 oz Male 27 hrs regional [facility] Delivery Date: 12/31/16 IOL for low fluid and postdates, had a arceo cath (hated it), amnioinfusion for decels, epidural, quick 2nd stage. Juju Santana DS: Data Vitals/I&O Vitals and I&O: Vital Signs Pulse 101 H 09/02/20 10:52 Blood Pressure 129/88 09/02/20 10:52 Data Completed and Pending Labs on day of discharge: Labs from last 24 hours 09/02/20 11:00 Ur Random Creatinine 211.78 U Random Total Protein 27.8 U Hollins Prot/Creat Ratio 0.13 09/02/20 11:25 Vaginal Vaginitis Screen - Pending Preliminary micro results at discharge 09/02/20 11:25 Vaginitis Screen - Pending Vaginal
--- NOTE | 2020-09-02 12:42 | W.OBNST ---
Date of service: 09/02/20 Time of Service: 12:00 NST Evaluation Reason for NST Reasons for Nonstress Test: LABOR Gestational Age Gestational Age in Weeks and Days: 31 Weeks and 0Days Test and Monitor Explained Test/Monitor Explained: Test Explained, Monitor Explained and Patient Verbalized Understanding NST Information Date on Monitor: 09/02/20 Time on Monitor: 10:48 Date off Monitor: 09/02/20 Time off Monitor: 11:17 Total Time on Monitor: 29 NST Interventions: Meal Given NST Evaluation Patient States Movement: Present FHR Baseline: 120 Variability: Moderate 6-25 bpm Accelerations: 15x15 Decelerations: None NST Results: Reactive Note NST Note Note: reactive NST, FHR 120 CAT I. See separate history and physical as well as discharge note for this date. NAVEEN NST Reviewed and Verified by: Juju Chapman
== END 2020-09-02 12:40 | disposition home or self-care (01) ==
LOC: BCD 10:32 → OBS 10:34
PROVIDERS: PCP Registered Nurse; Visit Provider Advanced Practice Midwife
DX: O60.03 Preterm labor without delivery, third trimester (principal); Z3A.31 31 weeks gestation of pregnancy
CPT/HCPCS: 59025; 82565; 84156; 87480; 87510; 87660; G0378

== ENCOUNTER 2020-09-18 11:40 | Outpatient (CLI) | payer MEDICAID, SELFPAY ==
[2020-09-18 13:06] VITALS: BP 118/75; PULSE 91; TEMP 36.7
--- NOTE | 2020-09-18 13:19 | W.OBNST ---
Date of service: 09/18/20 Time of Service: 13:00 NST Evaluation Reason for NST Reasons for Nonstress Test: OTHER, SEE COMMENT Reason for NST Other: skin color change Gestational Age Gestational Age in Weeks and Days: 33 Weeks and 2Days Test and Monitor Explained Test/Monitor Explained: Test Explained Vital Signs Blood Pressure: 118/75 Pulse: 91 Temperature: 98.1 F Urine Results Urine Protein: Negative Urine Ketones: Negative Urine Glucose: Negative Urine Blood: Negative NST Information Date on Monitor: 09/18/20 Time on Monitor: 12:50 Date off Monitor: 09/18/20 Time off Monitor: 13:11 Total Time on Monitor: 21 NST Interventions: None NST Evaluation Patient States Movement: Present FHR Baseline: 125 Variability: Moderate 6-25 bpm Accelerations: 15x15 Decelerations: None NST Results: Reactive Note NST Note Note: Lorrie presented to for NST due to complaint of lips turning blue a couple of times for past 2 weeks. Denies SOB or chest pain. Is ambulatory without difficulty. Speech is clear and appropriate and she is able to keep conversation pace withtout needing time to take a breath. Her lips are normal color on arrival, patient reports that they became normal right before she came for the visit. She is relieved and has no concerns. NST is reactive and reassuring, CAT I. We discussed that her SAO2 is 98% on room air and that her baby's tracing indicates that her blood oxygen is normal as the baby has a tracing with accelerations and good variability which reflect good oxygenated blood is being transmitted by placenta. She will keep next scheduled appointment or present to ED with any difficulty breathing.NAVEEN NST Reviewed and Verified by: Juju Chapman
[2020-09-18 13:23] VITALS: BP 118/75; PULSE 91; TEMP 36.7
== END 2020-09-18 13:17 | disposition home or self-care (01) ==
LOC: BCD 11:48 → OBS 12:29
PROVIDERS: PCP Registered Nurse; Visit Provider Advanced Practice Midwife
DX: O99.713 Diseases of the skin and subcutaneous tissue complicating pregnancy, third trimester (principal); L81.9 Disorder of pigmentation, unspecified; Z3A.33 33 weeks gestation of pregnancy
CPT/HCPCS: 59025

== ENCOUNTER 2020-10-03 12:54 | Outpatient (CLI) | payer MEDICAID, SELFPAY ==
[2020-10-03 17:10] LABS: Bilirubin Negative (Negative); Blood Negative (Negative); Clarity Clear (Clear); Glucose Negative (Negative); Ketones Negative (Negative); Leukocyte Esterase Negative (Negative); Nitrite Negative (Negative); Specific Gravity 1.015 (1.005-1.025); Urobilinogen 0.2 EU/dL (Up TO 0.2)
[2020-10-03 17:13] VITALS: BP 128/92; PULSE 87; RESP 16; TEMP 36.9
[2020-10-03 17:16] VITALS: BP 128/92; PULSE 87; TEMP 36.9
[2020-10-03 17:20] VITALS: BP 130/90; PULSE 92
[2020-10-03 18:06] LABS: HCT 34.9 % (36.0-46.0); HGB 11.9 g/dL (11.2-15.7); MCH 32.3 pg (27.0-33.0); MCHC 34.1 % (32.0-36.0); MCV 94.8 fL (80-95); MPV 9.3 fL (8.0-11.0); Platelet Count 222 10^3/uL (130-400); RBC 3.68 10^6/uL (3.93-5.22); RDW 13.2 % (11.7-14.6); WBC 9.71 10^3/uL (4.4-10.8)
[2020-10-03 18:29] VITALS: BP 129/88; PULSE 93
[2020-10-03 18:33] LABS: ALT 12 U/L (14-59); AST 11 U/L (15-37); Albumin 2.8 g/dL (3.4-5.0); Alkaline Phosphatase 133 U/L (46-116); Anion Gap 11.4 mmol/L (3-11); BUN 7 mg/dL (7-18); Bilirubin, Total 0.3 mg/dL (0.2-1.0); CO2 18.6 mmol/L (21.0-32.0); CREATININE 0.5 mg/dL (0.55-1.02); Calcium 8.8 mg/dL (8.5-10.1); Chloride 107 mmol/L (98-107); Glucose 100 mg/dL (74-106); Potassium 3.9 mmol/L (3.5-5.1); Sodium 137 mmol/L (136-145); Total Protein 6.6 g/dL (6.4-8.2); Uric Acid 3.3 mg/dL (2.6-6.0)
--- NOTE | 2020-10-03 19:12 | W.OBNST ---
Date of service: 10/03/20 Time of Service: 19:12 NST Evaluation Reason for NST Reasons for Nonstress Test: LABOR Gestational Age Gestational Age in Weeks and Days: 35 Weeks and 3Days Test and Monitor Explained Test/Monitor Explained: Test Explained, Monitor Explained and Patient Verbalized Understanding Vital Signs Blood Pressure: 128/92 Pulse: 87 Temperature: 98.4 F Urine Results Urine Protein: Negative Urine Ketones: Negative Urine Glucose: Negative Urine Blood: Negative NST Information Date on Monitor: 10/03/20 Time on Monitor: 16:51 Date off Monitor: 10/03/20 Time off Monitor: 18:57 Total Time on Monitor: 126 NST Interventions: PO Hydration NST Evaluation Patient States Movement: Present FHR Baseline: 120 Variability: Marked >25 bpm Accelerations: 15x15, 10x10 and Prolonged Decelerations: None NST Results: Reactive Note NST Note Note: Pt reporting lower abd pain, low back pain, irregular uncomfortable contractions, nausea and moderate headache at the back of the head not relieved by tylenol. Denies upper abd pain, vomiting, visual changes, bleeding or ROM. Baby is active. Cvx closed/thick. NST reactive. BP 128/92 initially, 130/90 on retake, and 129/88 an hour later. Pre-e labs drawn and all are nml. EGA 35+3, no proteinuria. Pt discharged to home on modified bedrest, stop work for a week, warning signs of gestational HTN and pre-eclampsia reviewed, return in 3 days for NST/BP check/ultrasound for EFW/KRISTEL. Fioricet caps Rx'ed for headache prn, to call if ALAN worsens or other warning sx. NST Reviewed and Verified by: Mabel Pinto
[2020-10-03 19:20] VITALS: BP 128/92; PULSE 87; TEMP 36.9
[2020-10-03 23:23] LABS: COMMENT (LAB VIEW ONLY) 36.96 mg/dL; PROTEIN 8.1 mg/dL; Prot/Crea Ur Ratio 0.21
== END 2020-10-03 19:00 | disposition home or self-care (01) ==
LOC: BCD 12:57 → OBS 16:45
PROVIDERS: PCP Registered Nurse; Visit Provider Advanced Practice Midwife
DX: O60.03 Preterm labor without delivery, third trimester (principal); Z3A.35 35 weeks gestation of pregnancy
CPT/HCPCS: 80053; 85027; 86850; 86900; 86901; 59025; 81003; 82565; 84156; 84550

== ENCOUNTER 2020-10-06 11:00 | Observation (INO) | payer MEDICAID, SELFPAY ==
--- NOTE | 2020-10-06 | DI.US_ITS ---
Exam(s) US OB KRISTEL WEIGHT EXAM: US OB KRISTEL WEIGHT CLINICAL HISTORY: 35 wks, borderline elevated BP. TECHNIQUE: Transabdominal obstetrical ultrasound was performed. COMPARISON: US US OB 2-3 TRIMESTER from 06/04/2020 FINDINGS: There is a single viable intrauterine gestation with cardiac activity identified-133 bpm The fetus is presently in cephalic position . Amniotic fluid: There is a normal amount of amniotic fluid with an KRISTEL of cm. Placental location: The placenta is posterior grade 2-3,with no evidence of placenta previa. Dating parameters place this at approximately 36 weeks and 4 days gestational age, implying BALAJI of October 30, 2020. BPD measures 36 weeks and 4 days HC measures 37 weeks 4 days AC measures 35 weeks and 4 days FL measures 36 weeks. Estimated weight is 2824 gm-6 pounds 4 ounce Fetus is at the 55th percentile on the Hadlock scale. IMPRESSION:: Viable 3rd trimester gestation, as described above. DATA REPOSITORY:
[2020-10-06 10:13] VITALS: BP 121/85; PULSE 104; TEMP 36.5
[2020-10-06 10:37] VITALS: BP 121/85; PULSE 104
[2020-10-06 10:41] VITALS: BP 128/98; PULSE 98
[2020-10-06 11:18] LABS: PROTEIN 12.1 mg/dL
[2020-10-06 11:20] LABS: COMMENT (LAB VIEW ONLY) 71.34 mg/dL; Prot/Crea Ur Ratio 0.16
[2020-10-06 11:42] VITALS: BP 126/87; PULSE 105; TEMP 36.8
[2020-10-06] MEDS: Ondansetron 4 MG TAB PO (12:44)
[2020-10-06] MEDS: oxyCODONE 5 MG TAB PO (12:45)
--- NOTE | 2020-10-06 13:51 | HPE_ITS ---
Date of service: 10/06/20 Time of Service: 12:00 Assessment and Plan Assessment and plan (1) Headache: Status: Acute Assessment and plan: A: 29 yo @ 35+6 wks Headache, chronic, lasting over 2 weeks, with nausea, r/o migraine Not responding to tylenol or fioricet medication BP cuff size adjusted to actual arm measurement of 34 cm NST reactive, ultrasound nml with EFW in 55th percentile and KRISTEL 14 Urine prot/creat ratio 0.16 today, BP 120's/80's with proper cuff size Pre-eclampsia and Gest HTN are ruled out, wellbeing verified Most recent BP @ 1400 = 123/82, pulse 86 P: Discussed pt status with Dr. Almazan Zofran 4 mg PO for nausea, oxycodone 5 mg PO for ALAN Pt advised to take 75 mg Vistaril at bedtime to see if this relieves ALAN pain Future BP measurements using manual technique with adequate cuff Advised pt that neurology consult is indicated, pt declines Pt to start Maternity Leave from work and rest AMAP, eat well and hydrate well Next appt in [facility] with optical effects line up person in 2 days, will give pt note for leave from work then. Qualifiers: Headache chronicity pattern: chronic headache Headache type: cluster Intractability: intractable Qualified Code(s): G44.021 - Chronic cluster headache, intractable OB-HPI Labor/Delivery History of Present Illness Reason for Visit: NST Chief Complaint: Other (Headache for 2+ weeks, scheduled for NST and BP check today). BALAJI Calculator Estimated Delivery Date Method Current WG Current Estimate 11/04/20 Ultrasound #1 35w 6d Other Estimates 10/29/20 LMP (Certain) 36w 5d History of Present Expected Delivery Route/Plan - CNM FOB/ - Pacheco Pedersen (second child together) BB yes to circ Is thinking she wants regional anesthesia Specific Issues/Plan 1. Hx depression, used to take sertraline >1 yr ago 1a. PHQ9 score is 12, declines medication while , accepts [facility] referral; done 05/01 1b. plans to reach out to therapist she used to see in [place] 2. Desires [place] and CF testing, will draw today 2a. [place] result low prob x3, male. CF carrier screen negative 3. BMI @ 29, hx PCOS, will request pt do early glucola 3a. 22 wk [id number] 4. At initial OB, PAP nml/neg but w/fungal organisms, no sx, no tx 5. J&J COVID vaccine received 06/28/20 6. s/p cholecystectomy 2017 7. Elevated 1-hr GTT -150, Declines 3-hr GTT , will start glucose testing QID x 2 weeks. 7a. testing Tuesday, Tuesday and Sundays only as of 09/10/20 consult with 8. Pruritis of legs and chest with rash - Liver enzymes WNL, Bile acids-4 8a. Itching improved with hydroxyzine. 9. Left breast pain - normal breast ultrasound 10. pelvis injury - chronic SI joint pain Assessment: History Reviewed & Current Review of Systems All systems reviewed & are unremarkable except as noted in HPI and below Constitutional Constitutional: Reports system reviewed and no additional complaints, except as documented, Reports headache(s), Reports poor appetite and Reports other (nausea) ENT Ears, Nose, Mouth, and Throat: Reports headache(s) Cardiovascular Cardiovascular: Reports system reviewed and no additional complaints, except as documented Respiratory Respiratory: Reports system reviewed and no additional complaints, except as documented Gastrointestinal Gastrointestinal: Reports nausea Genitourinary Genitourinary: Reports system reviewed and no additional complaints, except as documented Musculoskeletal Musculoskeletal: Reports system reviewed and no additional complaints, except as documented Neurologic Neurologic: Reports headache(s) Psychiatric Psychiatric: Reports anxiety [facility] Medical History (Updated 10/06/20 @ 15:15 by Mabel Pinto) Breast pain, left Depression Elevated glucose level Injury of pelvis injury in the , surgery recommended after childbearing Miscarriage, threatened, early PCOS (polycystic ovarian syndrome) Treated with metformin in the past Pruritic urticarial papules and plaques of Superior labrum glczwrhi-jf-ozenlrpnl (SLAP) tear of right shoulder repaired 2014 Vaginal discharge during in third trimester Vaginal leukorrhea Surgical History (Updated 09/10/20 @ 10:31 by Juju Chapman CNM) History of cholecystectomy Family History (Updated 09/10/20 @ 10:29 by Juju Chapman CNM) Mother Diabetes type 2 Father Liver disease related to exposure to toxin while in [place] Paternal Grandfather Colon cancer also Paternal GGM and GGF Social History Smoking/Tobacco Use Status: Never Smoking risk assessment performed?: Yes Alcohol Intake: never Drug use: Never Substance use type: does not use Do you feel safe at home: Yes Do you feel safe in your relationship?: Yes History History 3 Para 1 Hx # Term Pregnancies 1 Multiple births 0 Hx # Pregnancies 0 Ectopic pregnancies 0 AB induced 0 Hx Number of Living Children 1 AB spontaneous 1 Past Pregnancies Del. Date GA/Weeks # Outcome Route Wgt Sex Labor Lgth Anesthes ia Location Prov Complic 12/31/16 41 No Successful vaginal 6 lb 11 oz [facility] Delivery Date: 12/31/16 IOL for low fluid and postdates, had a arceo cath (hated it), amnioinfusion for decels, epidural, quick 2nd stage. Juju Santana Allergies and Home Medications Allergies Allergy/AdvReac Type Severity Reaction Status Date / Time Sulfa (Sulfonamide AdvReac Intermediate vomiting Verified 09/24/20 11:07 Antibiotics) Home Medications Medication Instructions Recorded Confirmed Type cholecalciferol (vitamin D3) 25 25 mcg PO DAILY 03/06/20 07/04/20 History mcg (1,000 unit) capsule prenat.vits,candelaria,jms-syxf-vxeto See Rx Instructions PO DAILY 03/06/20 07/04/20 History Unisom (doxylamine) 25 mg PO QHS PRN 04/07/20 07/04/20 History hydroxyzine HCl 25 mg tablet 25 mg PO BID PRN #60 tab 08/11/20 Rx blood sugar diagnostic #100 ea 08/13/20 Rx blood-glucose meter #1 ea 08/13/20 Rx lancets 28 gauge #100 ea 08/13/20 Rx okprhqebhw-djugkbjsreadm-ydpvhdlm 1 cap PO Q4H PRN #20 cap 10/03/20 Rx 50 mg-300 mg-40 mg capsule Exam Physical Exam Vital signs: Temp Pulse BP 98.2 F 105 H 126/87 10/06/20 11:42 10/06/20 11:42 10/06/20 11:42 Vital Signs Reviewed: Yes Narrative: BP consistently 120's over 80's using red (lg) cuff for 34 cm arm measurement Constitutional Constitutional: no acute distress Detailed Labor and Delivery Exam Comments: Pelvic exam deferred, not in labor Fetus A Heart Rate Baseline: 130 Monitor Accelerations: 15 X 15 Monitor Decelerations: None Variability: Moderate (6-25 BPM) Presentation: Cephalic Categories: Category I (reactive NST) HEENT Exam HEENT Exam: Normal Neck Exam Neck Exam: Normal Chest/Brest/Axilla Exam Chest Exam: Normal Breast Exam Breast Exam: Not Done Respiratory Exam Respiratory Exam: Normal Cardiovascular Exam Cardiovascular Exam: Normal Abdominal Exam Abdominal Exam: Normal (gravid, nontender) Rectal Exam Rectal Exam: Not Done Exam Exam: Normal Extremities Exam Extremities Exam: Normal Back/Spine/Pelvis Exam Back Exam: Normal Pelvis Adequate: Yes Skin Exam Skin Exam: Normal Neurological Exam Neurological Exam: Normal Psychiatric Exam Psychiatric Exam: Normal (anxious, concerned about chronic ALAN) Risk Assessment Risk for Shoulder Dystocia Historical/Initial OB: NEGATIVE FOR: Pelvic Abnormality, Pre- BMI>30, Previous Shoulder Dystocia or Previous Macrosomia Increased Risk?: No Risk for Pre-Eclampsia Daily Dose ASA Indicated: No Yes, if one or more: NEGATIVE FOR: Hx Pre-E/Gest HTN, Chronic HTN, Multiple Gestation, Pre-gestational DM, Renal Disease, Systemic Lupus or APA Syndrome Yes, if 2 or more: NEGATIVE FOR: Nulliparity, Age>= 35 yrs, >10yr btwn pregnancies, BMI>30, ethinicty, Mother/Sister w/ Pre-E or Previous IUGR Risk for Post- Hemorrhage Initial: NEGATIVE FOR: Multiple Gestation, Previous PPH, Known Clotting Deficiency, Grand Multiparity or Anticoagulation At Risk?: No Risks Reviewed Risks Reviewed Upon Admission: Yes
--- NOTE | 2020-10-06 15:17 | W.OBNST ---
Date of service: 10/06/20 Time of Service: 11:17 NST Evaluation Reason for NST Reasons for Nonstress Test: GESTATIONAL HYPERTENSION Gestational Age Gestational Age in Weeks and Days: 35 Weeks and 6Days Test and Monitor Explained Test/Monitor Explained: Test Explained, Monitor Explained and Patient Verbalized Understanding Vital Signs Blood Pressure: 121/85 Pulse: 104 Temperature: 97.7 F NST Information Date on Monitor: 10/06/20 Time on Monitor: 10:05 Date off Monitor: 10/06/20 Time off Monitor: 10:46 Total Time on Monitor: 41 NST Interventions: PO Hydration NST Evaluation Patient States Movement: Present FHR Baseline: 130 Variability: Moderate 6-25 bpm Accelerations: 15x15 Decelerations: None NST Results: Reactive Note NST Note Note: To ultrasound for EFW/KRISTEL. Not in labor, ruled out for gest HTN or pre-eclampsia. Chronic ALAN of unknown etiology, nausea, r/o migraine. Pt declined neuro consult. Given Zofran 4 mg PO and oxycodone 5 mg PO, advised to take Vistaril 75 mg tonight at bedtime. To be seen in [facility] in 2 days. NST Reviewed and Verified by: Mabel Pinto
[2020-10-06 15:20] VITALS: BP 121/85; PULSE 104; TEMP 36.5
== END 2020-10-06 14:47 | disposition home or self-care (01) ==
LOC: BCD 14:45 → OBS 14:45
PROVIDERS: Admitting Provider Advanced Practice Midwife; PCP Registered Nurse; Visit Provider Advanced Practice Midwife
DX: O99.353 Diseases of the nervous system complicating pregnancy, third trimester (principal); G44.021 Chronic cluster headache, intractable; O99.283 Endocrine, nutritional and metabolic diseases complicating pregnancy, third trimester; Z3A.35 35 weeks gestation of pregnancy; E28.2 Polycystic ovarian syndrome; O26.86 Pruritic urticarial papules and plaques of pregnancy (PUPPP); O99.343 Other mental disorders complicating pregnancy, third trimester; F32.9 Major depressive disorder, single episode, unspecified
CPT/HCPCS: 76816; 59025; 82565; 84156; G0378; J8597

== ENCOUNTER 2020-10-08 15:39 | Outpatient (REF) | payer MEDICAID, SELFPAY ==
[2020-10-08 16:56] LABS: *AMPHETAMINES SCREEN URINE Negative (Negative); *BARBITURATES SCREEN URINE Positive (Negative); *BENZODIAZEPINES SCREEN URINE Negative (Negative); Cannabinoids THC Negative (Negative); Cocaine Screen,Urine Negative (Negative); METHADONE URINE SCREEN Negative (Negative); OPIATES URINE SCREEN Negative (Negative)
[2020-10-08 17:00] LABS: Tricyclic Antidepressants Negative (Negative)
[2020-10-11 08:21] LABS: Buprenorphine Negative ng/mL (Cutoff: 5.0)
== END 2020-10-08 15:40 | disposition home or self-care (01) ==
LOC: LBN 15:39
PROVIDERS: PCP Registered Nurse; Visit Provider Advanced Practice Midwife
DX: Z34.93 Encounter for supervision of normal pregnancy, unspecified, third trimester (principal); Z36.85 Encounter for antenatal screening for Streptococcus B; Z3A.36 36 weeks gestation of pregnancy
CPT/HCPCS: 80307; 87081

== ENCOUNTER 2020-10-10 09:59 | Outpatient (CLI) | payer MEDICAID, SELFPAY ==
[2020-10-10 10:19] VITALS: TEMP 36.9
[2020-10-10 10:38] VITALS: BP 123/91; PULSE 97
[2020-10-10 10:49] VITALS: BP 133/88; PULSE 98
--- NOTE | 2020-10-10 10:57 | W.OBNST ---
Date of service: 10/10/20 Time of Service: 10:57 NST Evaluation Reason for NST Reasons for Nonstress Test: GESTATIONAL HYPERTENSION Gestational Age Gestational Age in Weeks and Days: 36 Weeks and 3Days Test and Monitor Explained Test/Monitor Explained: Test Explained, Monitor Explained and Patient Verbalized Understanding Vital Signs Temperature: 98.4 F NST Information Date on Monitor: 10/10/20 Time on Monitor: 10:15 Date off Monitor: 10/10/20 Time off Monitor: 10:51 Total Time on Monitor: 36 NST Interventions: PO Hydration NST Evaluation Patient States Movement: Present FHR Baseline: 1,255 Variability: Moderate 6-25 bpm Accelerations: 15x15 Decelerations: None NST Results: Reactive Note NST Note Note: Reviewed BP's and recent Pre-eclampsia labs as well as chronic ALAN with Dr. Bustamante (OB radiation therapy technician today) Officially diagnosing patient with Gestational Hypertension today. Will do twice weekly NST and have patient scheduled for induction at her next office visit early next week. Major Gifts Manager has reviewed GHTN with patient and rationale for delivery and she verbalizes understanding and agrees to this plan of care. NST today is reactive and reassuring. BP's are not in severe range. She has ALAN that has been persistent for many weeks but no other pre-ecalmpsia signs or symptoms. NST Reviewed and Verified by: Juju Chapman
[2020-10-10 11:01] VITALS: TEMP 36.9
[2020-10-12 17:54] VITALS: BP 101/62; PULSE 98
== END 2020-10-10 10:50 | disposition home or self-care (01) ==
LOC: BCD 10:01 → OBS 10:16
PROVIDERS: PCP Registered Nurse; Visit Provider Advanced Practice Midwife
DX: O13.3 Gestational [pregnancy-induced] hypertension without significant proteinuria, third trimester (principal); Z3A.36 36 weeks gestation of pregnancy
CPT/HCPCS: 59025

== ENCOUNTER 2020-10-14 15:30 | Inpatient (IN) | payer MEDICAID, SELFPAY ==
[2020-10-14 13:52] VITALS: BP 122/94; PULSE 100; TEMP 36.9
[2020-10-14 14:11] LABS: HCT 37.6 % (36.0-46.0); HGB 12.8 g/dL (11.2-15.7); MCH 32.3 pg (27.0-33.0); MCV 94.9 fL (80-95); MPV 9.2 fL (8.0-11.0); Platelet Count 232 10^3/uL (130-400); RBC 3.96 10^6/uL (3.93-5.22); RDW 13.5 % (11.7-14.6); RDW-SD 47.1 fL; WBC 10.75 10^3/uL (4.4-10.8)
--- NOTE | 2020-10-14 14:51 | W.OBNST ---
Date of service: 10/14/20 Time of Service: 14:51 NST Evaluation Reason for NST Reasons for Nonstress Test: GESTATIONAL HYPERTENSION Gestational Age Gestational Age in Weeks and Days: 37 Weeks and 0Days Test and Monitor Explained Test/Monitor Explained: Test Explained, Monitor Explained and Patient Verbalized Understanding Vital Signs Blood Pressure: 122/94 Pulse: 100 Temperature: 98.4 F NST Information Date on Monitor: 10/14/20 Time on Monitor: 13:58 Date off Monitor: 10/14/20 Time off Monitor: 14:41 Total Time on Monitor: 43 NST Interventions: PO Hydration NST Evaluation Patient States Movement: Present FHR Baseline: 135 Variability: Marked >25 bpm Accelerations: 15x15 NST Results: Reactive Note NST Note Note: NST due to persistent ALAN in and Gestational Hypertension. NST shows reactive FHR. One variable deceleration to 110. No regular contractions. Accelerations to 150's. NST Reviewed and Verified by: Juju Chapman
[2020-10-14 14:53] VITALS: BP 122/94; PULSE 100; TEMP 36.9
[2020-10-14 15:10] LABS: PROTEIN < 6.0 mg/dL
[2020-10-14 15:13] LABS: COMMENT (LAB VIEW ONLY) 32.25 mg/dL
[2020-10-14 15:44] LABS: ALT 17 U/L (14-59); AST 13 U/L (15-37); Albumin 3.1 g/dL (3.4-5.0); Alkaline Phosphatase 156 U/L (46-116); Anion Gap 12.8 mmol/L (3-11); BUN 6 mg/dL (7-18); Bilirubin, Total 0.2 mg/dL (0.2-1.0); CO2 19.2 mmol/L (21.0-32.0); CREATININE 0.4 mg/dL (0.55-1.02); Calcium 8.5 mg/dL (8.5-10.1); Chloride 106 mmol/L (98-107); Glucose 84 mg/dL (74-106); Potassium 4.1 mmol/L (3.5-5.1); Sodium 138 mmol/L (136-145); Total Protein 6.6 g/dL (6.4-8.2)
--- NOTE | 2020-10-14 15:58 | W.PM.OBHPL1 ---
Date of service: 10/14/20 Time of Service: 15:58 Assessment and Plan Assessment and plan (1) Gestational hypertension w/o significant proteinuria in 3rd trimester: Status: Acute Assessment and plan: Consult with done, will admit and begin induction with cervical ripening. No evidence of pre-eclampsia at this time. Expect NVD. OB-HPI Labor/Delivery History of Present Illness Reason for Visit: INDUCTION OF LABOR Chief Complaint: Other. BALAJI Calculator Estimated Delivery Date Method Current WG Current Estimate 11/04/20 Ultrasound #1 37w 0d Other Estimates 10/29/20 LMP (Certain) 37w 6d Comments: Lorrie Pedersen presents for NST due to perisistent ALAN and Gestation Hypertension in third trimetser. she is feeling less well today. Due to her diagnosis we did pre-eclampsia labs that are negative. She was scheduled for induction at 37w2d but after consultation with Dr. Urban and due to patient feeling less well with ALAN, we are going to admit and begin cervical ripening and induction this afternoon which is patient's preference. We had previously discussed cervical ripening and induction of labor with agents such as misoprostol, cervidil, pitocin or mechanical methods of cervical ripening, at the time of admission entry writer decided to begin with vaingl misoprostol and reassess as indicated. Pateint agrees to this plan and verbalizes understanding of risks, benefits and alternatives to this agent as well as plan, she would like to move forward today. History of Present Expected Delivery Route/Plan - CNM FOB/ - Pacheco Pedersen (second child together) BB yes to circ GBS negative Is thinking she wants regional anesthesia Gest HTN identified at 36 wks, IOL scheduled for 11/16/20 @ 37 wks Specific Issues/Plan 1. Hx depression, used to take sertraline >1 yr ago 1a. PHQ9 score is 12, declines medication while , accepts [facility] referral; done 05/01 1b. plans to reach out to therapist she used to see in [place] 2. Desires [place] and CF testing, will draw today 2a. [place] result low prob x3, male. CF carrier screen negative 3. BMI @ 29, hx PCOS, will request pt do early glucola 3a. 22 wk [id number] 4. At initial OB, PAP nml/neg but w/fungal organisms, no sx, no tx 5. J&J COVID vaccine received 06/28/20 6. s/p cholecystectomy 2017 7. Elevated 1-hr GTT -150, Declines 3-hr GTT , will start glucose testing QID x 2 weeks. 7a. testing Tuesday, Tuesday and Sundays only as of 09/10/20 consult with 8. Pruritis of legs and chest with rash - Liver enzymes WNL, Bile acids-4 8a. Itching improved with hydroxyzine. 8b. Taking hydroxyzine BID. 9. Left breast pain - normal breast ultrasound 10. pelvis injury - chronic SI joint pain- sees a chiropractor. Assessment: History Reviewed & Current Informed Consent Informed Consent: Induction of Labor Review of Systems All systems reviewed & are unremarkable except as noted in HPI and below PFSH Medical History Breast pain, left Depression Elevated glucose level Injury of pelvis injury in the , surgery recommended after childbearing Miscarriage, threatened, early PCOS (polycystic ovarian syndrome) Treated with metformin in the past Pruritic urticarial papules and plaques of Superior labrum wsvkdjtn-ux-tzpqmyydu (SLAP) tear of right shoulder repaired 2014 Vaginal discharge during in third trimester Vaginal leukorrhea Surgical History (Updated 09/10/20 @ 10:31 by Juju Chapman CNM) History of cholecystectomy Family History (Updated 09/10/20 @ 10:29 by Juju Chapman CNM) Mother Diabetes type 2 Father Liver disease related to exposure to toxin while in [place] Paternal Grandfather Colon cancer also Paternal GGM and GGF Social History Smoking/Tobacco Use Status: Never Smoking risk assessment performed?: Yes Alcohol Intake: never Drug use: Never Substance use type: does not use Do you feel safe at home: Yes Do you feel safe in your relationship?: Yes History History 3 Para 1 Hx # Term Pregnancies 1 Multiple births 0 Hx # Pregnancies 0 Ectopic pregnancies 0 AB induced 0 Hx Number of Living Children 1 AB spontaneous 1 Past Pregnancies Del. Date GA/Weeks # Outcome Route Wgt Sex Labor Lgth Anesthesia Location Prov Complic 12/31/16 41 No Successful vaginal 6 lb 11 oz Male 27 hrs regional [facility] Delivery Date: 12/31/16 IOL for low fluid and postdates, had a arceo cath (hated it), amnioinfusion for decels, epidural, quick 2nd stage. Juju Santana Meds Allergies and Home Medications Allergies Allergy/AdvReac Type Severity Reaction Status Date / Time Sulfa (Sulfonamide AdvReac Intermediate vomiting Verified 10/14/20 13:17 Antibiotics) Home Medications Medication Instructions Recorded Confirmed Type cholecalciferol (vitamin D3) 25 25 mcg PO DAILY 03/06/20 07/04/20 History mcg (1,000 unit) capsule prenat.vits,candelaria,gzc-fzre-cjffy See Rx Instructions PO DAILY 03/06/20 07/04/20 History Unisom (doxylamine) 25 mg PO QHS PRN 04/07/20 07/04/20 History hydroxyzine HCl 25 mg tablet 25 mg PO BID PRN #60 tab 08/11/20 Rx kagmzpewcx-jwqmxnihqmozc-ronsoeix 1 cap PO Q4H PRN #20 cap 10/03/20 Rx 50 mg-300 mg-40 mg capsule cyclobenzaprine 10 mg tablet 10 mg PO HS PRN #10 tab 10/08/20 10/08/20 Rx Exam Physical Exam Vital Signs Reviewed: Yes Constitutional Constitutional: mild distress (has had persistent ALAN for many weeks not responsive to therapies offered, no visual disturbance.KH) and average body habitus Detailed Labor and Delivery Exam Dilation: 0 Effacement (%): 50 station: -1 Cervix position: posterior Consistency: soft Baca Score: Cervical Points Exam 0 1 2 3 Dilation Closed 1-2cm 3-4 cm 5-6cm Effacement 0-30% 40-50% 60-70% 80% Consistency Firm Medium Soft Station -3 -2 -1,0 +1,+2 Position Posterior Mid Anterior BACA Score(Cervical Ripeness Score): 5 Amniotic Membrane Status: Intact Contraction Frequency(min): 0 Fetus A Heart Rate Baseline: 130 Monitor Accelerations: 15 X 15 Variability: Moderate (6-25 BPM) Presentation: Cephalic Categories: Category I Est. Weight: 6 lb 8 oz Assessment Note: NST this afternoon is reactive and reassuring. VS are not in severe range.KH HEENT Exam HEENT Exam: Normal (ALAN that is located in occiput area, pressure discomfort, no visual component. NVAEEN) Neck Exam Neck Exam: Normal Chest/Brest/Axilla Exam Chest Exam: Not Done Breast Exam Breast Exam: Not Done Respiratory Exam Respiratory Exam: Normal Cardiovascular Exam Cardiovascular Exam: Normal Abdominal Exam Abdominal Exam: Normal Rectal Exam Rectal Exam: Not Done Exam Exam: Normal Extremities Exam Extremities Exam: Normal Back/Spine/Pelvis Exam Back Exam: Not Done Pelvis Adequate: Yes Skin Exam Skin Exam: Normal Neurological Exam Neurological Exam: Normal (excluding ALAN) Psychiatric Exam Psychiatric Exam: Normal Risk Assessment Risk for Shoulder Dystocia Historical/Initial OB: NEGATIVE FOR: Pelvic Abnormality, Pre- BMI>30, Previous Shoulder Dystocia or Previous Macrosomia 40 Weeks: NEGATIVE FOR: EFW> 4500 gms, Maternal Weight Gain >40lb or Post Dates Increased Risk?: No Delivery Plan @ 40 wks: 10/14/20: expect NVD.NAVEEN Risk for Pre-Eclampsia Daily Dose ASA Indicated: No Yes, if one or more: NEGATIVE FOR: Hx Pre-E/Gest HTN, Chronic HTN, Multiple Gestation, Pre-gestational DM, Renal Disease, Systemic Lupus or APA Syndrome Yes, if 2 or more: NEGATIVE FOR: Nulliparity, Age>= 35 yrs, >10yr btwn pregnancies, BMI>30, ethinicty, Mother/Sister w/ Pre-E or Previous IUGR Risk for Post- Hemorrhage Initial: NEGATIVE FOR: Multiple Gestation, Previous PPH, Known Clotting Deficiency, Grand Multiparity or Anticoagulation At Risk?: Yes Interventions: due to induction of labor at [address] IV site and we discussed active management of third stage.NAVEEN Counseled re: Active Management: Yes Date/Initials: 10/14/20: NAVEEN Risks Reviewed Risks Reviewed Upon Admission: Yes
[2020-10-14 16:24] LABS: Source Nasal/Nares
[2020-10-14] MEDS: miSOPROStol 25 MCG TAB VG (16:45)
[2020-10-14 16:52] VITALS: RESP 16; TEMP 36.7
[2020-10-14] MEDS: Normal Saline Flush 10 ML SYR IVP (17:28)
[2020-10-14 17:46] LABS: COVID-19 PCR Negative (Negative)
[2020-10-14 18:00] VITALS: BP 119/75; PULSE 96; RESP 16
[2020-10-14 20:57] VITALS: BP 108/53; PULSE 82
--- NOTE | 2020-10-14 21:24 | W.PM.OBNL1 ---
Date of service: 10/14/20 Time of Service: 21:24 Informed Consent Informed Consent: Induction of Labor Pelvic Exam Comments: VE deferred as contractions are close enoght together to prevent further medication at this time despite not being strong in intensity. Patient prefers to avoid mechanical dilation. Will plan to reassess at 23oo or prn. Contractions Monitor Mode: External Contraction Frequency(min): 2-3 Contraction Duration(sec): 40-50 Intensity: Mild Fetus A Monitor: External (US) Heart Rate Baseline: 120 Variability: Moderate (6-25 BPM) Categories: Category I Accelerations: 10 X 10 Decelerations: None Amniotic Membrane Status: Intact Assessment and Plan Assessment and plan (1) Gestational hypertension w/o significant proteinuria in 3rd trimester: Status: Acute Assessment and plan: VS stable, labs essentially normal with no evidence of pre-eclampsia. Will continue to observe contractions pattern until 2300 and reassess at that time. May be off monitor to ambulate and or use shower / ball. Continue to expect NVD. Objective Abnormal lab results 10/14/20 Range/Units 14:03 Carbon Dioxide 19.2 L (21.0-32.0) mmol/L Anion Gap 12.8 H (3-11) mmol/L BUN 6 L (7-18) mg/dL Creatinine 0.4 L (0.55-1.02) mg/dL AST 13 L (15-37) U/L Alkaline Phosphatase 156 H (46-116) U/L Albumin 3.1 L (3.4-5.0) g/dL Temp Pulse Resp BP 98.1 F 82 16 108/53 L 10/14/20 16:52 10/14/20 20:57 10/14/20 18:00 10/14/20 20:57 Laboratory Results WBC 10.75 10^3/uL (4.4-10.8) 10/14/20 14:03 RBC 3.96 10^6/uL (3.93-5.22) 10/14/20 14:03 Hgb 12.8 g/dL (11.2-15.7) 10/14/20 14:03 Hct 37.6 % (36.0-46.0) 10/14/20 14:03 MCV 94.9 fL (80-95) 10/14/20 14:03 MCH 32.3 pg (27.0-33.0) 10/14/20 14:03 MCHC 34.0 % (32.0-36.0) 10/14/20 14:03 RDW 13.5 % (11.7-14.6) 10/14/20 14:03 Plt Count 232 10^3/uL (130-400) 10/14/20 14:03 MPV 9.2 fL (8.0-11.0) 10/14/20 14:03 Sodium 138 mmol/L (136-145) 10/14/20 14:03 Potassium 4.1 mmol/L (3.5-5.1) 10/14/20 14:03 Chloride 106 mmol/L (98-107) 10/14/20 14:03 Carbon Dioxide 19.2 mmol/L (21.0-32.0) L 10/14/20 14:03 Anion Gap 12.8 mmol/L (3-11) H 10/14/20 14:03 BUN 6 mg/dL (7-18) L 10/14/20 14:03 Creatinine 0.4 mg/dL (0.55-1.02) L 10/14/20 14:03 Estimated GFR/1.73 m2 >= 60.00 (mL/min/1.73m2) 10/14/20 14:03 Glucose 84 mg/dL (74-106) 10/14/20 14:03 Uric Acid 4.0 mg/dL (2.6-6.0) 10/14/20 14:03 Calcium 8.5 mg/dL (8.5-10.1) 10/14/20 14:03 Total Bilirubin 0.2 mg/dL (0.2-1.0) 10/14/20 14:03 AST 13 U/L (15-37) L 10/14/20 14:03 ALT 17 U/L (14-59) 10/14/20 14:03 Alkaline Phosphatase 156 U/L (46-116) H 10/14/20 14:03 Total Protein 6.6 g/dL (6.4-8.2) 10/14/20 14:03 Albumin 3.1 g/dL (3.4-5.0) L 10/14/20 14:03 Ur Random Creatinine 32.25 mg/dL 10/14/20 13:57 U Random Total Protein < 6.0 mg/dL 10/14/20 13:57 U [place] Prot/Creat Ratio 10/14/20 13:57 COVID-19 Source Nasal/Nares 10/14/20 16:17 SARS-CoV-2 (PCR) Negative (Negative) 10/14/20 16:17 Patient ABO/Rh O Positive 10/14/20 16:15 Antibody Screen NEGATIVE 10/14/20 16:15 Subjective Interval history since last seen: feeling frequent cramping. No LOF or show. Baby is not active at this time, monitor appears to show a sleep pattern. Tolerating PO hydration well. Does plan epidural once in active labor. is present. Reports ALAN persists but is able to watch TV, tolderate PO fluids and regular diet, converse and tolerate lights without complaint. .KH Results Hemoglobin/Hematocrit: Hgb 12.8 g/dL (11.2-15.7) 10/14/20 14:03 Hct 37.6 % (36.0-46.0) 10/14/20 14:03 Abnormal Lab Findings: Abnormal Labs 10/14/20 14:03 Carbon Dioxide 19.2 L Anion Gap 12.8 H BUN 6 L Creatinine 0.4 L AST 13 L Alkaline Phosphatase 156 H Albumin 3.1 L
--- NOTE | 2020-10-14 23:06 | W.PM.OBNL1 ---
Date of service: 10/14/20 Time of Service: 23:06 Informed Consent Informed Consent: Induction of Labor Pelvic Exam Dilation: 2 Effacement (%): 60 station: -1 Position: LATESHA Cervix Position: posterior Consistency: soft Vaginal Exam Presentation: Cephalic Contractions Monitor Mode: Palpation Contraction Frequency(min): 3 Contraction Duration(sec): 30-60 Intensity: Moderate Fetus A Monitor: External (US) Heart Rate Baseline: 120 Assessment Note: monitor is being applied at this time, palpable movement noted. FHR 120s. Assessment and Plan Assessment and plan (1) Gestational hypertension w/o significant proteinuria in 3rd trimester: Status: Acute Assessment and plan: continue present management, will support labor at this time, no further medication. Pain relief measures offered, patient is planning nitrous and epidural as needed. Objective Abnormal lab results 10/14/20 Range/Units 14:03 Carbon Dioxide 19.2 L (21.0-32.0) mmol/L Anion Gap 12.8 H (3-11) mmol/L BUN 6 L (7-18) mg/dL Creatinine 0.4 L (0.55-1.02) mg/dL AST 13 L (15-37) U/L Alkaline Phosphatase 156 H (46-116) U/L Albumin 3.1 L (3.4-5.0) g/dL Temp Pulse Resp BP 98.1 F 82 16 108/53 L 10/14/20 16:52 10/14/20 20:57 10/14/20 18:00 10/14/20 20:57 Laboratory Results WBC 10.75 10^3/uL (4.4-10.8) 10/14/20 14:03 RBC 3.96 10^6/uL (3.93-5.22) 10/14/20 14:03 Hgb 12.8 g/dL (11.2-15.7) 10/14/20 14:03 Hct 37.6 % (36.0-46.0) 10/14/20 14:03 MCV 94.9 fL (80-95) 10/14/20 14:03 MCH 32.3 pg (27.0-33.0) 10/14/20 14:03 MCHC 34.0 % (32.0-36.0) 10/14/20 14:03 RDW 13.5 % (11.7-14.6) 10/14/20 14:03 Plt Count 232 10^3/uL (130-400) 10/14/20 14:03 MPV 9.2 fL (8.0-11.0) 10/14/20 14:03 Sodium 138 mmol/L (136-145) 10/14/20 14:03 Potassium 4.1 mmol/L (3.5-5.1) 10/14/20 14:03 Chloride 106 mmol/L (98-107) 10/14/20 14:03 Carbon Dioxide 19.2 mmol/L (21.0-32.0) L 10/14/20 14:03 Anion Gap 12.8 mmol/L (3-11) H 10/14/20 14:03 BUN 6 mg/dL (7-18) L 10/14/20 14:03 Creatinine 0.4 mg/dL (0.55-1.02) L 10/14/20 14:03 Estimated GFR/1.73 m2 >= 60.00 (mL/min/1.73m2) 10/14/20 14:03 Glucose 84 mg/dL (74-106) 10/14/20 14:03 Uric Acid 4.0 mg/dL (2.6-6.0) 10/14/20 14:03 Calcium 8.5 mg/dL (8.5-10.1) 10/14/20 14:03 Total Bilirubin 0.2 mg/dL (0.2-1.0) 10/14/20 14:03 AST 13 U/L (15-37) L 10/14/20 14:03 ALT 17 U/L (14-59) 10/14/20 14:03 Alkaline Phosphatase 156 U/L (46-116) H 10/14/20 14:03 Total Protein 6.6 g/dL (6.4-8.2) 10/14/20 14:03 Albumin 3.1 g/dL (3.4-5.0) L 10/14/20 14:03 Ur Random Creatinine 32.25 mg/dL 10/14/20 13:57 U Random Total Protein < 6.0 mg/dL 10/14/20 13:57 U [place] Prot/Creat Ratio 10/14/20 13:57 COVID-19 Source Nasal/Nares 10/14/20 16:17 SARS-CoV-2 (PCR) Negative (Negative) 10/14/20 16:17 Patient ABO/Rh O Positive 10/14/20 16:15 Antibody Screen NEGATIVE 10/14/20 16:15 Subjective Interval history since last seen: reports contractions are stronger and remaining regular. Working well with contractions but would like to try nitrous for pain relief if needed. KH Interventions Pain Management Interventions: Nitrous Oxide , patient is aware of nitrous oxide use and expected results. Informed consent obtained. . Results Hemoglobin/Hematocrit: Hgb 12.8 g/dL (11.2-15.7) 10/14/20 14:03 Hct 37.6 % (36.0-46.0) 10/14/20 14:03 Abnormal Lab Findings: Abnormal Labs 10/14/20 14:03 Carbon Dioxide 19.2 L Anion Gap 12.8 H BUN 6 L Creatinine 0.4 L AST 13 L Alkaline Phosphatase 156 H Albumin 3.1 L
[2020-10-14 23:31] VITALS: BP 121/85; PULSE 79
[2020-10-15] VITALS (67 sets, daily range): BP systolic 80–146; BP diastolic 41–90; PULSE 68–129; RESP 18; TEMP 36.7–36.9; O2SAT 86–100; BMI 31.8
[2020-10-15] MEDS: Ondansetron 4 MG/2 ML VIAL IVP (02:38)
--- NOTE | 2020-10-15 02:50 | PGE_ITS ---
Date of service: 10/15/20 Time of Service: 02:50 Informed Consent Informed Consent: Induction of Labor and Regional Anesthesia Pelvic Exam Comments: VE deferred until after epidural. Contractions Monitor Mode: Palpation Contraction Frequency(min): irregular Fetus A Monitor: External (US) Heart Rate Baseline: 120 Variability: Moderate (6-25 BPM) Assessment Note: monitor difficult to maintain tracing due to maternal position changes. Assessment and Plan Assessment and plan (1) Gestational hypertension w/o significant proteinuria in 3rd trimester: Status: Acute Assessment and plan: Will get epidural and then begin pitocin once stable to allow for continued effort at induction unless there is significant cervical change on VE after epidural obtained. Objective Abnormal lab results 10/14/20 Range/Units 14:03 Carbon Dioxide 19.2 L (21.0-32.0) mmol/L Anion Gap 12.8 H (3-11) mmol/L BUN 6 L (7-18) mg/dL Creatinine 0.4 L (0.55-1.02) mg/dL AST 13 L (15-37) U/L Alkaline Phosphatase 156 H (46-116) U/L Albumin 3.1 L (3.4-5.0) g/dL Temp Pulse Resp BP 98.1 F 75 16 119/76 10/14/20 16:52 10/15/20 01:25 10/14/20 18:00 10/15/20 01:25 Laboratory Results WBC 10.75 10^3/uL (4.4-10.8) 10/14/20 14:03 RBC 3.96 10^6/uL (3.93-5.22) 10/14/20 14:03 Hgb 12.8 g/dL (11.2-15.7) 10/14/20 14:03 Hct 37.6 % (36.0-46.0) 10/14/20 14:03 MCV 94.9 fL (80-95) 10/14/20 14:03 MCH 32.3 pg (27.0-33.0) 10/14/20 14:03 MCHC 34.0 % (32.0-36.0) 10/14/20 14:03 RDW 13.5 % (11.7-14.6) 10/14/20 14:03 Plt Count 232 10^3/uL (130-400) 10/14/20 14:03 MPV 9.2 fL (8.0-11.0) 10/14/20 14:03 Sodium 138 mmol/L (136-145) 10/14/20 14:03 Potassium 4.1 mmol/L (3.5-5.1) 10/14/20 14:03 Chloride 106 mmol/L (98-107) 10/14/20 14:03 Carbon Dioxide 19.2 mmol/L (21.0-32.0) L 10/14/20 14:03 Anion Gap 12.8 mmol/L (3-11) H 10/14/20 14:03 BUN 6 mg/dL (7-18) L 10/14/20 14:03 Creatinine 0.4 mg/dL (0.55-1.02) L 10/14/20 14:03 Estimated GFR/1.73 m2 >= 60.00 (mL/min/1.73m2) 10/14/20 14:03 Glucose 84 mg/dL (74-106) 10/14/20 14:03 Uric Acid 4.0 mg/dL (2.6-6.0) 10/14/20 14:03 Calcium 8.5 mg/dL (8.5-10.1) 10/14/20 14:03 Total Bilirubin 0.2 mg/dL (0.2-1.0) 10/14/20 14:03 AST 13 U/L (15-37) L 10/14/20 14:03 ALT 17 U/L (14-59) 10/14/20 14:03 Alkaline Phosphatase 156 U/L (46-116) H 10/14/20 14:03 Total Protein 6.6 g/dL (6.4-8.2) 10/14/20 14:03 Albumin 3.1 g/dL (3.4-5.0) L 10/14/20 14:03 Ur Random Creatinine 32.25 mg/dL 10/14/20 13:57 U Random Total Protein < 6.0 mg/dL 10/14/20 13:57 U [place] Prot/Creat Ratio 10/14/20 13:57 COVID-19 Source Nasal/Nares 10/14/20 16:17 SARS-CoV-2 (PCR) Negative (Negative) 10/14/20 16:17 Patient ABO/Rh O Positive 10/14/20 16:15 Antibody Screen NEGATIVE 10/14/20 16:15 Subjective Interval history since last seen: Patient is doing well with contractions but they have spaced out slightly. If we are to move forward with pitocin augmentation she would like to have epidural to do so. Tooling Engineer paged anesthesia who called back and will attend for placement.KH Interventions Pain Management Interventions: Epidural . Results Hemoglobin/Hematocrit: Hgb 12.8 g/dL (11.2-15.7) 10/14/20 14:03 Hct 37.6 % (36.0-46.0) 10/14/20 14:03 Abnormal Lab Findings: Abnormal Labs 10/14/20 14:03 Carbon Dioxide 19.2 L Anion Gap 12.8 H BUN 6 L Creatinine 0.4 L AST 13 L Alkaline Phosphatase 156 H Albumin 3.1 L
[2020-10-15] MEDS: fentaNYL 100 MCG/2 ML VIAL (02:57)
[2020-10-15] MEDS: Bupivacaine 0.25% Pres-Free 10 ML VIAL (02:58)
[2020-10-15] MEDS: Normal Saline Flush 10 ML SYR IVP (03:05)
[2020-10-15] MEDS: Lactated Ringers 250 ML 500 ML IV ×2 (03:16→04:39)
--- NOTE | 2020-10-15 03:18 | ANES.PREOP_ITS ---
General Info Date of Service Date Performed: 10/15/20 Height: 5 ft 7 in Weight: 92.079 kg Body Mass Index (BMI): 31.8 Meds Allergies and Home Medications Allergies Allergy/AdvReac Type Severity Reaction Status Date / Time Sulfa (Sulfonamide AdvReac Intermediate vomiting Verified 10/14/20 13:17 Antibiotics) Home Medication Medication Instructions Recorded cholecalciferol (vitamin D3) 25 25 mcg PO DAILY 03/06/20 mcg (1,000 unit) capsule prenat.vits,candelaria,thj-ndyi-yzyzj See Rx Instructions PO DAILY 03/06/20 Unisom (doxylamine) 25 mg PO QHS PRN 04/07/20 hydroxyzine HCl 25 mg tablet 25 mg PO BID PRN #60 tab 08/11/20 iwqllivjib-ioweaffekxclp-ifgavavk 1 cap PO Q4H PRN #20 cap 10/03/20 50 mg-300 mg-40 mg capsule cyclobenzaprine 10 mg tablet 10 mg PO HS PRN #10 tab 10/08/20 Current Visit Medications: Current Medications Generic Name Dose Route Start Last Admin Trade Name Freq PRN Reason Stop Dose Admin Bupivacaine HCl 10 ml 10/15/20 03:00 Bupivacaine 0.25% Pres-Free 10 Ml Vial IJ DIRECTED ZACARIAS Ephedrine Sulfate 5 mg 10/15/20 02:49 Ephedrine 50 Mg/Ml Vial IVP DIRECTED PRN Fentanyl/Ropivacaine 200 ml 10/15/20 03:00 Fentanyl/Ropivacaine 2 Mcg/Ml And 0.1% 200 Ml Cadd Cassette EP DIRECTED ZACARIAS Ringer's Solution 1,000 mls @ 200 mls/hr 10/14/20 16:00 IV INFUSION ZACARIAS Sodium Chloride 500 mls @ 0 mls/hr 10/14/20 15:55 Saline 500ml Bag IV PRN PRN As Directed Ringer's Solution 250 mls @ 500 mls/hr 10/15/20 02:49 10/15/20 03:16 IV 10/15/20 03:18 500 mls/hr BOLUS ONE Administration IV Miscellaneous Supplies 1 each 10/14/20 16:00 Iv Access IV DIRECTED [facility] Misoprostol 25 mcg 10/14/20 16:00 10/15/20 01:33 Misoprostol 25 Mcg Tab VG Not Given Q4H ZACARIAS Naloxone HCl 0 mg 10/15/20 02:49 Naloxone 0.4 Mg/Ml Vial IVP DIRECTED PRN Ondansetron HCl 4 mg 10/14/20 23:30 10/15/20 02:38 Ondansetron 4 Mg/2 Ml Vial IVP 4 mg Q6H PRN PRN Administration Sodium Chloride 0 ml 10/14/20 15:55 10/14/20 17:28 Normal Saline Flush 10 Ml Syr IVP 20 ml PRN PRN Administration Terbutaline Sulfate 0.25 mg 10/14/20 15:55 Terbutaline 1 Mg/Ml Vial SC PRN PRN Zolpidem Tartrate 10 mg 10/14/20 21:00 10/15/20 01:33 Zolpidem 5 Mg Tab PO 10/15/20 06:00 Not Given [address] [place] [address] Active Problems Active Problems: Problem Status Onset Code Gestational hypertension w/o significant proteinuria in 3rd trimester O13.3 Pruritic urticarial papules and plaques of O26.86 Dental root implant present Z97.2 Irregular uterine contractions O62.2 Injury of pelvis S39.93XA Headache R51.9 Depression F32.9 Personal history of female infertility Z87.42 PCOS (polycystic ovarian syndrome) E28.2 Breast pain, left N64.4 Z34.90 Medical History Medical History Breast pain, left Depression Elevated glucose level Injury of pelvis injury in the , surgery recommended after childbearing Miscarriage, threatened, early PCOS (polycystic ovarian syndrome) Treated with metformin in the past Pruritic urticarial papules and plaques of Superior labrum fmesfcnb-si-zwtdkeedw (SLAP) tear of right shoulder repaired 2015 Vaginal discharge during in third trimester Vaginal leukorrhea Surgical History Surgical History (Updated 09/10/20 @ 10:31 by Juju Chapman CNM) History of cholecystectomy Tobacco Smoking/Tobacco Use Status: Former Tobacco Use Tobacco: How many years used: 12 Alcohol Alcohol Intake: never Substance Use Substance use: Never Substance use type: does not use Prental History History 3 Para 1 Hx # Term Pregnancies 1 Multiple births 0 Hx # Pregnancies 0 Ectopic pregnancies 0 AB induced 0 Hx Number of Living Children 1 AB spontaneous 1 Past Pregnancies Del. Date GA/Weeks # Outcome Route Wgt Sex Labor Lgth Anesthes ia Location Prov Complic 12/31/16 41 No Successful vaginal 3033.399 g Male 27 hrs regional [facility] Delivery Date: 12/31/16 IOL for low fluid and postdates, had a arceo cath (hated it), amnioinfusion for decels, epidural, quick 2nd stage. Juju Santana Vital Signs and Lab Results Vital Signs Most Recent Vital Signs in EMR: Most Recent Vital Signs Temp Pulse Resp BP 36.7 C 75 16 119/76 10/14/20 16:52 10/15/20 01:25 10/14/20 18:00 10/15/20 01:25 Lab Results Result Diagrams: 10/14/20 14:03 10/14/20 14:03 Blood Type / Crossmatch: Patient ABO/Rh O Positive 10/14/20 16:15 10/14/20 Antibody Screen NEGATIVE 10/14/20 16:15 10/14/20 Complete Blood Count: White Blood Count 10.75 10^3/uL (4.4-10.8) 10/14/20 14:03 10/14/20 Red Blood Count 3.96 10^6/uL (3.93-5.22) 10/14/20 14:03 10/14/20 Hemoglobin 12.8 g/dL (11.2-15.7) 10/14/20 14:03 10/14/20 Hematocrit 37.6 % (36.0-46.0) 10/14/20 14:03 10/14/20 Platelet Count 232 10^3/uL (130-400) 10/14/20 14:03 10/14/20 Complete Metabolic Panel: Sodium Level 138 mmol/L (136-145) 10/14/20 14:03 10/14/20 Potassium Level 4.1 mmol/L (3.5-5.1) 10/14/20 14:03 10/14/20 Chloride Level 106 mmol/L (98-107) 10/14/20 14:03 10/14/20 Carbon Dioxide Level 19.2 mmol/L (21.0-32.0) L 10/14/20 14:03 10/14/20 Blood Urea Nitrogen 6 mg/dL (7-18) L 10/14/20 14:03 10/14/20 Creatinine 0.4 mg/dL (0.55-1.02) L 10/14/20 14:03 10/14/20 Estimated GFR/1.73 m2 >= 60.00 (mL/min/1.73m2) 10/14/20 14:03 10/14/20 Calcium Level 8.5 mg/dL (8.5-10.1) 10/14/20 14:03 10/14/20 Albumin 3.1 g/dL (3.4-5.0) L 10/14/20 14:03 10/14/20 Glucose Level 84 mg/dL (74-106) 10/14/20 14:03 10/14/20 Liver Function Panel: Alanine Aminotransferase (ALT/SGPT) 17 U/L (14-59) 10/14/20 14:03 10/14/20 Aspartate Amino Transf (AST/SGOT) 13 U/L (15-37) L 10/14/20 14:03 10/14/20 Coagulation Panel: No Data to Display Cardiac Panel: No Data to Display Arterial Blood Gas: No Data to Display Venous Blood Gas: No Data to Display Pancreas Panel: No Data to Display Thyroid Panel: No Data to Display Infectious Disease: Coronavirus (COVID-19)(PCR) Negative (Negative) 10/14/20 16:17 10/14/20 Coronavirus 2019 Source Nasal/Nares 10/14/20 16:17 10/14/20 Blood Cultures: No Data to Display Toxicology Panel: 2 Urine Amphetamines Screen Negative (Negative) 10/08/20 11:30 10/08/20 Urine Benzodiazepines Screen Negative (Negative) 10/08/20 11:30 10/08/20 Urine Barbiturates Screen Positive (Negative) A 10/08/20 11:30 10/08/20 Urine Cocaine Screen Negative (Negative) 10/08/20 11:30 10/08/20 Urine Methadone Screen Negative (Negative) 10/08/20 11:30 10/08/20 Urine Opiates Screen Negative (Negative) 10/08/20 11:30 10/08/20 Ur Tricyclic Antidepressants Screen Negative (Negative) 10/08/20 11:30 10/08/20 Ur Tetrahydrocannabinol (THC) Scrn Negative (Negative) 10/08/20 11:10/08/20 Panel: No Data to Display Anesthesia Assessment and Plan Anesthesia History Personal History: No History of Anesthesia Complications Family History: No Family History of Anesthesia Complications Exercise Tolerance Exercise Tolerance: Metabolic Equivalents>4 Pertinent Negatives Pertinent Negatives: No Symptoms of GERD, No Major Cardiovascular Symptoms or Complaints, No Major Pulmonary Symptoms or Complaints and No History of CVA/TIA Cardiac & Pulmonary Exam Cardiac Exam: Normal S1/S2 Heart Sounds Pulmonary Exam: Clear Bilateral Breath Sounds Airway Exam Known Difficult Airway: No Mallampati Class: 2 Mouth Opening: Normal (> 3cm) Thyromental Distance: Greater than 3 cm Neck Range of Motion: Full ROM Neck Circumference: Normal Teeth Condition: Normal Dentition ASA Classification ASA Score: ASA 2 Emergency Case?: No NPO Status NPO Status: NPO Clears >2 hours, Solids >8 hours Status Status: Confirmed Anesthesia Plan Resuscitation Status: Full Code Anesthesia Technique: Epidural Anesthesia Airway Planned: Natural Airway Pain Management: Epidural Monitors Used: Standard Monitors
[2020-10-15] MEDS: Lactated Ringers 1,000 ML 125 ML IV ×2 (03:30→08:43)
[2020-10-15] MEDS: FentaNYL/ROPIvacaine 2 mcg/ml and 0.1% 200 ML CADD Cassette EP (04:15)
--- NOTE | 2020-10-15 04:23 | W.ANESNEU ---
Epidural/Spinal Catheter Date Performed: 10/15/20 Procedure Start: 03:56 Procedure Stop: 04:25 Requesting Provider: Juju Chapman Procedure Location: Obstetrics Reason Performed: Labor Epidural Standard Monitors Applied: Blood Pressure and SpO2 Patient Position: Sitting Sedation Given (Indicate Dose Given): No Sedation given Patient Mental Status: Awake Sterility: Hand Hygiene, Surgical Cap, Surgical Mask, Sterile Gloves, Sterile Drape/Sheet and Chlorhexidine Procedure Location: L3-L4 Interspace Epidural Needle: Tuohy 17 Guage Needle Length: 3.5 Inch Needle Approach: Midline Epidural Procedure: Skin Prepped, 1% Lidocaine to skin and subcutaneous tissue with 25G needle, Tuohy Needle placed, MILAGRO to Saline Used, Epidural Catheter Placed, Negative Heme, Negative CSF Flow and Tuohy Needle Removed Catheter Placed?: Catheter Placed Test Dose (Indicate Dose Given): 3ml 1.5% Lidocaine with 1:200K Epinephrine Given (2cc) and Negative Test Dose Loss of Resistance Depth (cm): 8 Catheter depth at skin (cm): 13 Dressing: [place] Dressing Placed, Tegaderm Applied, Mastisol Used and Dressing reinforced with Tape Epidural Provider Bolus (Indicate Dose Given): Total Ropivacaine 0.1% with Fentanyl 2mcg/ml Given from pump (ml) Dose:: 3mL with excellent effect Additives (Indicate Dose Given ): Fentanyl PF Dose:: 100mcg bolus fentanyl given Infusion Medication: Medication Infusion Began Medication Infusion: Ropivacaine 0.1% with Fentanyl 2mcg/ml Maintenance Infusion Rate (ml/hour): 8 PCEA Bolus Dose (ml): 3 Block Level: T3 and T4 Paresthesia: None Ultrasound: Not Used Number of Attempts (See previous attempts in note section): 1 Procedure Tolerated: No Complications and Patient tolerated well Procedure Outcome: Successful Performed By: Janice Other (not listed above): 10mg ephedrine boluses x 2 given for hypotension after 3mL bolus from pump Supervised By: Tavo Evangelista
[2020-10-15] MEDS: diphenhydrAMINE 50 MG/ML VIAL 25 MG IVP (04:48)
--- NOTE | 2020-10-15 05:09 | W.PM.OBNL1 ---
Date of service: 10/15/20 Time of Service: 05:09 Informed Consent Informed Consent: Induction of Labor and Regional Anesthesia Pelvic Exam Comments: No cervical change at this time. Contractions Monitor Mode: Palpation Contraction Frequency(min): 3-4 Contraction Duration(sec): 30 Intensity: Mild Fetus A Monitor: External (US) Heart Rate Baseline: 135 Presentation: Cephalic Variability: Moderate (6-25 BPM) Categories: Category I Decelerations: None Assessment and Plan Assessment and plan (1) Gestational hypertension w/o significant proteinuria in 3rd trimester: Status: Acute Assessment and plan: will begin pitocin augmentation at 0600. Continue present management. Objective Abnormal lab results 10/14/20 Range/Units 14:03 Carbon Dioxide 19.2 L (21.0-32.0) mmol/L Anion Gap 12.8 H (3-11) mmol/L BUN 6 L (7-18) mg/dL Creatinine 0.4 L (0.55-1.02) mg/dL AST 13 L (15-37) U/L Alkaline Phosphatase 156 H (46-116) U/L Albumin 3.1 L (3.4-5.0) g/dL Temp Pulse Resp BP Pulse Ox 98.1 F 97 H 16 119/80 98 10/14/20 16:52 10/15/20 05:06 10/14/20 18:00 10/15/20 04:59 10/15/20 05:06 Laboratory Results WBC 10.75 10^3/uL (4.4-10.8) 10/14/20 14:03 RBC 3.96 10^6/uL (3.93-5.22) 10/14/20 14:03 Hgb 12.8 g/dL (11.2-15.7) 10/14/20 14:03 Hct 37.6 % (36.0-46.0) 10/14/20 14:03 MCV 94.9 fL (80-95) 10/14/20 14:03 MCH 32.3 pg (27.0-33.0) 10/14/20 14:03 MCHC 34.0 % (32.0-36.0) 10/14/20 14:03 RDW 13.5 % (11.7-14.6) 10/14/20 14:03 Plt Count 232 10^3/uL (130-400) 10/14/20 14:03 MPV 9.2 fL (8.0-11.0) 10/14/20 14:03 Sodium 138 mmol/L (136-145) 10/14/20 14:03 Potassium 4.1 mmol/L (3.5-5.1) 10/14/20 14:03 Chloride 106 mmol/L (98-107) 10/14/20 14:03 Carbon Dioxide 19.2 mmol/L (21.0-32.0) L 10/14/20 14:03 Anion Gap 12.8 mmol/L (3-11) H 10/14/20 14:03 BUN 6 mg/dL (7-18) L 10/14/20 14:03 Creatinine 0.4 mg/dL (0.55-1.02) L 10/14/20 14:03 Estimated GFR/1.73 m2 >= 60.00 (mL/min/1.73m2) 10/14/20 14:03 Glucose 84 mg/dL (74-106) 10/14/20 14:03 Uric Acid 4.0 mg/dL (2.6-6.0) 10/14/20 14:03 Calcium 8.5 mg/dL (8.5-10.1) 10/14/20 14:03 Total Bilirubin 0.2 mg/dL (0.2-1.0) 10/14/20 14:03 AST 13 U/L (15-37) L 10/14/20 14:03 ALT 17 U/L (14-59) 10/14/20 14:03 Alkaline Phosphatase 156 U/L (46-116) H 10/14/20 14:03 Total Protein 6.6 g/dL (6.4-8.2) 10/14/20 14:03 Albumin 3.1 g/dL (3.4-5.0) L 10/14/20 14:03 Ur Random Creatinine 32.25 mg/dL 10/14/20 13:57 U Random Total Protein < 6.0 mg/dL 10/14/20 13:57 U [place] Prot/Creat Ratio 10/14/20 13:57 COVID-19 Source Nasal/Nares 10/14/20 16:17 SARS-CoV-2 (PCR) Negative (Negative) 10/14/20 16:17 Patient ABO/Rh O Positive 10/14/20 16:15 Antibody Screen NEGATIVE 10/14/20 16:15 Vital Signs Reviewed: Yes Objective Narrative Objective Narrative: Anesthesia BLADE ALIGNER plans to remain in hospital if further hypotension is noted or if pain increases as her continuous rate is set only at 8 due to her responses to bolus of 3ml earlier. Subjective Interval history since last seen: now very comfortable and tired following epidural placement. During test/bolus BP dropped and ephedrine was necessary times 2 to bring BP back to baseline. FHR was stable throughout and mother tolerated well except episode of emesis times one. She is now able to rest. Plan is to allow for 1 hour of no increase in intervention then to begin pitocin augmentation. Patient agrees to this plan and denies questions. Armas catheter is being placed as well due to several post epidural boluses. Interventions Augmentation (will begin pitocin at 0600) , Pitocin rate (mU/min): 2 risks, benefits and alternatives to pitocin reviewed. Patient denies questions and agrees to plan of care. . Results Hemoglobin/Hematocrit: Hgb 12.8 g/dL (11.2-15.7) 10/14/20 14:03 Hct 37.6 % (36.0-46.0) 10/14/20 14:03 Abnormal Lab Findings: Abnormal Labs 10/14/20 14:03 Carbon Dioxide 19.2 L Anion Gap 12.8 H BUN 6 L Creatinine 0.4 L AST 13 L Alkaline Phosphatase 156 H Albumin 3.1 L
[2020-10-15] MEDS: Oxytocin/Normal Saline 30 UNIT/500 ML BAG 2 UNITS IV (06:10)
[2020-10-15 07:23] LABS: HCT 37.8 % (36.0-46.0); HGB 12.7 g/dL (11.2-15.7); MCH 31.7 pg (27.0-33.0); MCHC 33.6 % (32.0-36.0); MCV 94.3 fL (80-95); MPV 9.6 fL (8.0-11.0); Platelet Count 237 10^3/uL (130-400); RBC 4.01 10^6/uL (3.93-5.22); RDW 13.5 % (11.7-14.6); RDW-SD 46.5 fL; WBC 13.82 10^3/uL (4.4-10.8)
--- NOTE | 2020-10-15 08:03 | W.PM.OBNL1 ---
Date of service: 10/15/20 Time of Service: 08:03 Informed Consent Informed Consent: Induction of Labor and Regional Anesthesia Pelvic Exam Comments: VE deferred. KH Contractions Monitor Mode: External Contraction Frequency(min): 2-4 Contraction Duration(sec): 50-60 Intensity: Mild/Moderate Fetus A Monitor: External (US) Heart Rate Baseline: 125 Variability: Moderate (6-25 BPM) Categories: Category I Accelerations: 15 X 15 Decelerations: None Assessment and Plan Assessment and plan (1) Gestational hypertension w/o significant proteinuria in 3rd trimester: Status: Acute Assessment and plan: Pitocin at 6 mu at this time. Armas is draining adequate amounts of urine. Will continue present management and specifications writer will relinquish care to Juju Contreras CNM. Objective Abnormal lab results 10/14/20 10/15/20 Range/Units 14:03 07:10 WBC 13.82 H (4.4-10.8) 10^3/uL Carbon Dioxide 19.2 L (21.0-32.0) mmol/L Anion Gap 12.8 H (3-11) mmol/L BUN 6 L (7-18) mg/dL Creatinine 0.4 L (0.55-1.02) mg/dL AST 13 L (15-37) U/L Alkaline Phosphatase 156 H (46-116) U/L Albumin 3.1 L (3.4-5.0) g/dL Temp Pulse Resp BP Pulse Ox 98.1 F 120 H 16 106/66 95 10/14/20 16:52 10/15/20 07:59 10/14/20 18:00 10/15/20 07:59 10/15/20 05:31 Laboratory Results WBC 13.82 10^3/uL (4.4-10.8) H 10/15/20 07:10 RBC 4.01 10^6/uL (3.93-5.22) 10/15/20 07:10 Hgb 12.7 g/dL (11.2-15.7) 10/15/20 07:10 Hct 37.8 % (36.0-46.0) 10/15/20 07:10 MCV 94.3 fL (80-95) 10/15/20 07:10 MCH 31.7 pg (27.0-33.0) 10/15/20 07:10 MCHC 33.6 % (32.0-36.0) 10/15/20 07:10 RDW 13.5 % (11.7-14.6) 10/15/20 07:10 Plt Count 237 10^3/uL (130-400) 10/15/20 07:10 MPV 9.6 fL (8.0-11.0) 10/15/20 07:10 Sodium 138 mmol/L (136-145) 10/14/20 14:03 Potassium 4.1 mmol/L (3.5-5.1) 10/14/20 14:03 Chloride 106 mmol/L (98-107) 10/14/20 14:03 Carbon Dioxide 19.2 mmol/L (21.0-32.0) L 10/14/20 14:03 Anion Gap 12.8 mmol/L (3-11) H 10/14/20 14:03 BUN 6 mg/dL (7-18) L 10/14/20 14:03 Creatinine 0.4 mg/dL (0.55-1.02) L 10/14/20 14:03 Estimated GFR/1.73 m2 >= 60.00 (mL/min/1.73m2) 10/14/20 14:03 Glucose 84 mg/dL (74-106) 10/14/20 14:03 Uric Acid 4.0 mg/dL (2.6-6.0) 10/14/20 14:03 Calcium 8.5 mg/dL (8.5-10.1) 10/14/20 14:03 Total Bilirubin 0.2 mg/dL (0.2-1.0) 10/14/20 14:03 AST 13 U/L (15-37) L 10/14/20 14:03 ALT 17 U/L (14-59) 10/14/20 14:03 Alkaline Phosphatase 156 U/L (46-116) H 10/14/20 14:03 Total Protein 6.6 g/dL (6.4-8.2) 10/14/20 14:03 Albumin 3.1 g/dL (3.4-5.0) L 10/14/20 14:03 Ur Random Creatinine 32.25 mg/dL 10/14/20 13:57 U Random Total Protein < 6.0 mg/dL 10/14/20 13:57 U [place] Prot/Creat Ratio 10/14/20 13:57 COVID-19 Source Nasal/Nares 10/14/20 16:17 SARS-CoV-2 (PCR) Negative (Negative) 10/14/20 16:17 Patient ABO/Rh O Positive 10/14/20 16:15 Antibody Screen NEGATIVE 10/14/20 16:15 Subjective Interval history since last seen: doing well, very comfortable since epidural, was able to sleep a little and is now awake watching TV. No complaint of ALAN or itching.KH Results Hemoglobin/Hematocrit: Hgb 12.7 g/dL (11.2-15.7) 10/15/20 07:10 Hct 37.8 % (36.0-46.0) 10/15/20 07:10 Abnormal Lab Findings: Abnormal Labs 10/14/20 10/15/20 14:03 07:10 WBC 13.82 H Carbon Dioxide 19.2 L Anion Gap 12.8 H BUN 6 L Creatinine 0.4 L AST 13 L Alkaline Phosphatase 156 H Albumin 3.1 L
--- NOTE | 2020-10-15 10:57 | PGE_ITS ---
Date of service: 10/15/20 Time of Service: 08:30 Informed Consent Informed Consent: Induction of Labor and Regional Anesthesia Pelvic Exam Dilation: 3 Effacement (%): 50 station: -2 Cervix Position: posterior Consistency: soft Vaginal Exam Presentation: Cephalic Pooling: Negative Contractions Monitor Mode: External Contraction Frequency(min): every 2-3 minutes Intensity: Mild/Moderate Fetus A Monitor: External (US) Presentation: Cephalic Variability: Moderate (6-25 BPM) Categories: Category I FHR Rhythm: Regular Accelerations: 15 X 15 Decelerations: None Assessment and Plan Assessment and plan (1) Irregular uterine contractions: Status: Acute (2) Encounter for induction of labor: Status: Acute Assessment and plan: Pitocin is at 6 mu/min. Will continue to increase pitocin rate to maintain regular contractions. Rest encouraged. Anticipate , Objective Abnormal lab results 10/14/20 10/15/20 Range/Units 14:03 07:10 WBC 13.82 H (4.4-10.8) 10^3/uL Carbon Dioxide 19.2 L (21.0-32.0) mmol/L Anion Gap 12.8 H (3-11) mmol/L BUN 6 L (7-18) mg/dL Creatinine 0.4 L (0.55-1.02) mg/dL AST 13 L (15-37) U/L Alkaline Phosphatase 156 H (46-116) U/L Albumin 3.1 L (3.4-5.0) g/dL Temp Pulse Resp BP Pulse Ox 98.4 F 111 H 16 103/63 95 10/15/20 08:49 10/15/20 09:47 10/14/20 18:00 10/15/20 09:47 10/15/20 05:31 Laboratory Results WBC 13.82 10^3/uL (4.4-10.8) H 10/15/20 07:10 RBC 4.01 10^6/uL (3.93-5.22) 10/15/20 07:10 Hgb 12.7 g/dL (11.2-15.7) 10/15/20 07:10 Hct 37.8 % (36.0-46.0) 10/15/20 07:10 MCV 94.3 fL (80-95) 10/15/20 07:10 MCH 31.7 pg (27.0-33.0) 10/15/20 07:10 MCHC 33.6 % (32.0-36.0) 10/15/20 07:10 RDW 13.5 % (11.7-14.6) 10/15/20 07:10 Plt Count 237 10^3/uL (130-400) 10/15/20 07:10 MPV 9.6 fL (8.0-11.0) 10/15/20 07:10 Sodium 138 mmol/L (136-145) 10/14/20 14:03 Potassium 4.1 mmol/L (3.5-5.1) 10/14/20 14:03 Chloride 106 mmol/L (98-107) 10/14/20 14:03 Carbon Dioxide 19.2 mmol/L (21.0-32.0) L 10/14/20 14:03 Anion Gap 12.8 mmol/L (3-11) H 10/14/20 14:03 BUN 6 mg/dL (7-18) L 10/14/20 14:03 Creatinine 0.4 mg/dL (0.55-1.02) L 10/14/20 14:03 Estimated GFR/1.73 m2 >= 60.00 (mL/min/1.73m2) 10/14/20 14:03 Glucose 84 mg/dL (74-106) 10/14/20 14:03 Uric Acid 4.0 mg/dL (2.6-6.0) 10/14/20 14:03 Calcium 8.5 mg/dL (8.5-10.1) 10/14/20 14:03 Total Bilirubin 0.2 mg/dL (0.2-1.0) 10/14/20 14:03 AST 13 U/L (15-37) L 10/14/20 14:03 ALT 17 U/L (14-59) 10/14/20 14:03 Alkaline Phosphatase 156 U/L (46-116) H 10/14/20 14:03 Total Protein 6.6 g/dL (6.4-8.2) 10/14/20 14:03 Albumin 3.1 g/dL (3.4-5.0) L 10/14/20 14:03 Ur Random Creatinine 32.25 mg/dL 10/14/20 13:57 U Random Total Protein < 6.0 mg/dL 10/14/20 13:57 U [place] Prot/Creat Ratio 10/14/20 13:57 COVID-19 Source Nasal/Nares 10/14/20 16:17 SARS-CoV-2 (PCR) Negative (Negative) 10/14/20 16:17 Patient ABO/Rh O Positive 10/14/20 16:15 Antibody Screen NEGATIVE 10/14/20 16:15 Subjective Patient Reports: No new Complaints Interval history since last seen: Lorrie is resting comfortably with epidural and had a short nap. Armas catheter is in place and pitocin is infusing. Results Hemoglobin/Hematocrit: Hgb 12.7 g/dL (11.2-15.7) 10/15/20 07:10 Hct 37.8 % (36.0-46.0) 10/15/20 07:10 Abnormal Lab Findings: Abnormal Labs 10/14/20 10/15/20 14:03 07:10 WBC 13.82 H Carbon Dioxide 19.2 L Anion Gap 12.8 H BUN 6 L Creatinine 0.4 L AST 13 L Alkaline Phosphatase 156 H Albumin 3.1 L
--- NOTE | 2020-10-15 12:14 | W.PM.OBNL1 ---
Date of service: 10/15/20 Time of Service: 12:14 Informed Consent Informed Consent: Induction of Labor, Regional Anesthesia and Risk,Benefits,Alternatives Discussed (articificial rupture of membranes) Pelvic Exam Dilation: 3 Effacement (%): 80 station: -1 Cervix Position: anterior Consistency: soft Vaginal Exam Presentation: Cephalic Pooling: Positive Contractions Monitor Mode: External Contraction Frequency(min): every 2-3 Intensity: Moderate/Strong Fetus A Monitor: External (US) Heart Rate Baseline: 125 Presentation: Vertex Variability: Moderate (6-25 BPM) Categories: Category I FHR Rhythm: Regular Accelerations: 15 X 15 Decelerations: None Amniotic Membrane Status: Ruptured Rupture Method: Artifical Amniotic Fluid: Clear Assessment and Plan Assessment and plan (1) Encounter for induction of labor: Status: Acute Assessment and plan: AROM performed. Vertex now -1 station. Anticipate Objective Abnormal lab results 10/14/20 10/15/20 Range/Units 14:03 07:10 WBC 13.82 H (4.4-10.8) 10^3/uL Carbon Dioxide 19.2 L (21.0-32.0) mmol/L Anion Gap 12.8 H (3-11) mmol/L BUN 6 L (7-18) mg/dL Creatinine 0.4 L (0.55-1.02) mg/dL AST 13 L (15-37) U/L Alkaline Phosphatase 156 H (46-116) U/L Albumin 3.1 L (3.4-5.0) g/dL Temp Pulse Resp BP Pulse Ox 98.2 F 121 H 16 108/63 98 10/15/20 11:41 10/15/20 11:41 10/14/20 18:00 10/15/20 11:40 10/15/20 11:41 Laboratory Results WBC 13.82 10^3/uL (4.4-10.8) H 10/15/20 07:10 RBC 4.01 10^6/uL (3.93-5.22) 10/15/20 07:10 Hgb 12.7 g/dL (11.2-15.7) 10/15/20 07:10 Hct 37.8 % (36.0-46.0) 10/15/20 07:10 MCV 94.3 fL (80-95) 10/15/20 07:10 MCH 31.7 pg (27.0-33.0) 10/15/20 07:10 MCHC 33.6 % (32.0-36.0) 10/15/20 07:10 RDW 13.5 % (11.7-14.6) 10/15/20 07:10 Plt Count 237 10^3/uL (130-400) 10/15/20 07:10 MPV 9.6 fL (8.0-11.0) 10/15/20 07:10 Sodium 138 mmol/L (136-145) 10/14/20 14:03 Potassium 4.1 mmol/L (3.5-5.1) 10/14/20 14:03 Chloride 106 mmol/L (98-107) 10/14/20 14:03 Carbon Dioxide 19.2 mmol/L (21.0-32.0) L 10/14/20 14:03 Anion Gap 12.8 mmol/L (3-11) H 10/14/20 14:03 BUN 6 mg/dL (7-18) L 10/14/20 14:03 Creatinine 0.4 mg/dL (0.55-1.02) L 10/14/20 14:03 Estimated GFR/1.73 m2 >= 60.00 (mL/min/1.73m2) 10/14/20 14:03 Glucose 84 mg/dL (74-106) 10/14/20 14:03 Uric Acid 4.0 mg/dL (2.6-6.0) 10/14/20 14:03 Calcium 8.5 mg/dL (8.5-10.1) 10/14/20 14:03 Total Bilirubin 0.2 mg/dL (0.2-1.0) 10/14/20 14:03 AST 13 U/L (15-37) L 10/14/20 14:03 ALT 17 U/L (14-59) 10/14/20 14:03 Alkaline Phosphatase 156 U/L (46-116) H 10/14/20 14:03 Total Protein 6.6 g/dL (6.4-8.2) 10/14/20 14:03 Albumin 3.1 g/dL (3.4-5.0) L 10/14/20 14:03 Ur Random Creatinine 32.25 mg/dL 10/14/20 13:57 U Random Total Protein < 6.0 mg/dL 10/14/20 13:57 U [place] Prot/Creat Ratio 10/14/20 13:57 COVID-19 Source Nasal/Nares 10/14/20 16:17 SARS-CoV-2 (PCR) Negative (Negative) 10/14/20 16:17 Patient ABO/Rh O Positive 10/14/20 16:15 Antibody Screen NEGATIVE 10/14/20 16:15 Subjective Patient Reports: New Complaints Interval history since last seen: Lorrie is experiencing pressure with contractions. Results Hemoglobin/Hematocrit: Hgb 12.7 g/dL (11.2-15.7) 10/15/20 07:10 Hct 37.8 % (36.0-46.0) 10/15/20 07:10 Abnormal Lab Findings: Abnormal Labs 10/14/20 10/15/20 14:03 07:10 WBC 13.82 H Carbon Dioxide 19.2 L Anion Gap 12.8 H BUN 6 L Creatinine 0.4 L AST 13 L Alkaline Phosphatase 156 H Albumin 3.1 L
[2020-10-15] MEDS: Oxytocin/Normal Saline 30 UNIT/500 ML BAG 334 UNITS IV (14:08)
--- NOTE | 2020-10-15 14:38 | W.OBDELIVERY ---
Date of service: 10/15/20 Time of Service: 14:38 OB Labor/ Delivery Information Baby A Delivery Delivery Method: Spontaneaous Presentation: Cephalic Vertex Position: Left Occipital Anterior Cord Description-Baby A: 3 Vessels Amniotic Fluid: Clear Estimated Blood Loss: 100 Delivery Outcome: Liveborn Providers Nurse Automotive Airconditioning Mechanic: Juju Contreras Nurse: Natty Cortes Nurse: Ayan Martins Labor/Delivery Information Number of Babies in Womb: 1 Steroids Given: None Reason Steroids Not Administered: N/A Group Beta Strep: Negative Antibiotics Administered: No Rubella Status: Immune Blood Type: O+ Varicella Immunity: Immune Maternal Complications: None Shoulder Dystocia: No Note: Examined at 1439 when tiera began experiencing more pressure and discomfort. Cervix 6 cms. porgressed rapidly to full dilation at 1350. FHTs 120s during first stage of labor. FHTs 120 in second stage with eary decellerations down to 100. She began pushing. Second stage huddle was done. Spontaneous delivery of male delivered in MARCIN position with posterior arm presenting with the face. Baby was placed on mother's abdomen and dried and stimulated. Spontaneous cry. Cord was clamped and cut by the baby's father. The placenta delivered spontaneously and appears to by intact with a three vessel cord. Pitocin 30 units was administered after delivery of the placenta. The perineum was inspected and a small first degree laceration was repaired with one interrupted suture . The baby did attempt to breastfeed. After delivery, Mother and baby and father of the baby were stable and bonding well in the delivery room and there were no complications. Stages of Labor Onset of Labor Date: 10/15/20 Onset of Labor Time: 07:00 Complete Dilatation Date: 10/15/20 Complete Dilatation Time: 13:50 Labor - Stage 1 Duration: 0 minutes ROM Baby A: 10/15/20 ROM Baby A: 12:07 ROM Total Time- Baby A: [id number] Delivery Date-Baby A: 10/15/20 Delivery Time-Baby A: 13:59 Labor Stage 2 Duration: 9 minutes Placenta Delivery Date-Baby A: 10/15/20 Placenta Delivery Time-Baby A: 14:10 Labor-Stage 3 Duration: 11 minutes Total Length of Labor-Baby A: 6 hours and 59 minutes Placenta Status: Delivered Baby A Gender: Male Gestational Status: Early Term (37-38.6 wks) Gestational Age in Weeks/Days: 37 Weeks and 1 Days Score-1 Minute Interval(Baby A) Heart Rate-1 minute: 100 BPM or Greater Respiratory Effort- 1 minute: Spontaneous/Strong Cry Muscle Tone-1 minute: Active Movement Reflex Response-1 minute: Prompt Response Color-1 minute: Pallor or Cyanosis Total Score-1 minute: 8 Score-5 Minute Interval(Baby A) Heart Rate- 5 minute: 100 BPM or Greater Respiratory Effort-5 minute: Spontaneous/Strong Cry Muscle Tone-5 minute: Active Movement Reflex Response-5 minute: Prompt Response Color-5 minute: Bluish Hands or Feet Total Score- 5 minute: 9 Interventions Repair of Laceration Type: Perineal , Laceration Extension: First Degree . Laceration Repair Note: 1 interrupted suture to re-approximate
[2020-10-15] MEDS: Ibuprofen 600 MG TAB PO ×2 (15:41→22:43)
[2020-10-15] MEDS: Dibucaine 1% 28 GM TUBE TP (15:42)
[2020-10-15] MEDS: Acetaminophen 325 MG TAB 650 MG PO (22:43)
[2020-10-16] MEDS: Acetaminophen 325 MG TAB 650 MG PO ×3 (04:12→17:58)
[2020-10-16] MEDS: Ibuprofen 600 MG TAB PO ×3 (05:39→17:57)
[2020-10-16 07:40] VITALS: BP 105/74; PULSE 104; RESP 16; TEMP 36.5; O2SAT 97
--- NOTE | 2020-10-16 10:10 | W.PM.OBPNV1 ---
Date of service: 10/16/20 Time of Service: 10:10 Assessment and Plan Assessment and plan (1) Vaginal delivery: Status: Acute Assessment and plan: Lorrie continues to complain of a mild headache. She is taking motrin and tylenol with fair effect. She is caring for baby independently. Cramping is managed well with oral analgesics. Voiding without difficulty. well. Baby is 37 weeks and is having blood sugar instability. supplementing feedings with formula. A - stable mother with headache. Post day 1, near baby with blood sugar instability. P - Discharge to home tomorrow. Routine post instructions. Emotiona support provided regarding her sadness about missing her older child. Subjective Subjective Patient comments: Pain well controlled (mild headache) [place] baby status: Other (blood sugar instability, nursing well) [place] feeding status: Breast and formula feeding (supplemented) Exam Physical Exam Vital signs: Temp Pulse Resp BP Pulse Ox 97.7 F 104 H 16 105/74 97 10/16/20 07:40 10/16/20 07:40 10/16/20 07:40 10/16/20 07:40 10/16/20 07:40 Vital Signs Reviewed: Yes Constitutional Constitutional: no acute distress Respiratory Exam Respiratory Exam: Normal Cardiovascular Exam Cardiovascular Exam: Normal Fundal Exam Fundus: Below Umbilicus Exam Patient deferred: external exam Extremities Exam Extremity Exam: Normal Skin Exam Skin Exam: Normal Psychiatric Exam Psychiatric Exam: Abnormal (tanxiety about the blood sugar issues, teary when discussing her older child and the fact that he can not visit due to covid restrictions. ) DetailedPsychiatric Exam Psych Exam: Normal Affect, Good Insight and Anxious Comments: tearful Results Hemoglobin/Hematocrit: Hgb 12.7 g/dL (11.2-15.7) 10/15/20 07:10 Hct 37.8 % (36.0-46.0) 10/15/20 07:10 Abnormal Lab Findings: Abnormal Labs 10/14/20 10/15/20 14:03 07:10 WBC 13.82 H Carbon Dioxide 19.2 L Anion Gap 12.8 H BUN 6 L Creatinine 0.4 L AST 13 L Alkaline Phosphatase 156 H Albumin 3.1 L
[2020-10-16 11:45] VITALS: BP 107/73; PULSE 94; RESP 16; TEMP 36.3; O2SAT 96
[2020-10-16 19:50] VITALS: PULSE 90; RESP 16; TEMP 36.8; O2SAT 98
[2020-10-17] MEDS: Acetaminophen 325 MG TAB 650 MG PO ×2 (00:08→07:51)
[2020-10-17] MEDS: Ibuprofen 600 MG TAB PO ×2 (00:08→07:51)
[2020-10-17 00:50] VITALS: BP 124/80; PULSE 82; RESP 16; TEMP 36.7; O2SAT 98
[2020-10-17 07:55] VITALS: BP 103/72; PULSE 118; RESP 16; TEMP 36.3; O2SAT 98
[2020-10-17] MEDS: Docusate Sodium 100 MG CAP PO (08:00)
--- NOTE | 2020-10-17 11:44 | DSE_ITS ---
Date of service: 10/17/20 Time of Service: 11:45 DS: Diagnosis Discharge Diagnosis (1) Vaginal delivery: Status: Acute Asessment and Plan: Caring for baby independently. Pain is managed well with oral analgesics. Voiding without difficulty. well. Her baby's blood sugar is stable. A - stable mother and baby , Post day 2, History of post depression P - Discharge to home. Routine post instructions. [facility] sertraline 50 mg escribed to begin taking now. (2) Depression: Status: Chronic Asessment and Plan: Discussed history of post depression after previous . She took sertraline with good effect. We discussed risks and benefits of this medication and Lorrie chooses to go back on sertraline at this time and this was prescribed. Discharge Plan Discharge Details Reason For Visit: Induction of Labor Admit Date/Time: 10/14/20 15:30 Admit Provider: Juju Chapman Attending Provider: Juju Chapman Primary Care Provider: Laya Owen Home Meds and New Rx's Prescriptions: New sertraline 50 mg tablet 50 mg PO DAILY Qty: 30 RF: 3 Discontinued cyclobenzaprine 10 mg tablet 10 mg PO HS PRN (Reason: muscle spasm) Qty: 10 RF: 3 hydroxyzine HCl 25 mg tablet 25 mg PO BID PRN (Reason: itching) Qty: 60 RF: 0 [id number] [Fioricet] 50-300-40 mg capsule 1 cap PO Q4H PRN (Reason: pain) Qty: 20 RF: 0 Unisom (doxylamine) 25 mg Tablet 25 mg PO QHS PRNRF: 0 No Action prenat.vits,candelaria,[id number] Tablet See Rx Instructions PO DAILY RF: 0 cholecalciferol (vitamin D3) 25 mcg (1,000 unit) capsule 25 mcg PO DAILY RF: 0 Discharge Instructions Stand Alone Forms: BC Instructions, BC Post Vaginal Deliver Activity:: Activity as Tolerated Activity:: Activity as Tolerated Equipment/Supplies:: No Equipment Needed Diet:: As Tolerated OB:DS Summary Summary Vaginal Delivery Method: Spontaneaous Episiotomy Description: None Laceration Description: Perineal Laceration Extension: First Degree Contraception Discussed Contraception Discussed: Yes Contraceptive Plan: Control Pill/Patch, Infant Gender-Baby A: Male weight: 6 lb 7.353 oz Status at Discharge Functional status at discharge: independent ambulation Overall status at discharge: patient is back to baseline Mental Status: mental status grossly normal Speech and Movement: speech and movement normal Mood: congruent mood Affect: normal affect Exam Physical Exam Vital signs: Temp Pulse Resp BP Pulse Ox 97.3 F L 118 H 16 103/72 98 10/17/20 07:55 10/17/20 07:55 10/17/20 07:55 10/17/20 07:55 10/17/20 07:55 Vital Signs Reviewed: Yes Constitutional Constitutional: no acute distress Respiratory Exam Respiratory Exam: Normal Cardiovascular Exam Cardiovascular Exam: Normal Fundal Exam Fundus: Below Umbilicus Rectal Exam Rectal Exam: Normal Extremities Exam Extremity Exam: Normal Skin Exam Skin Exam: Normal Psychiatric Exam Psychiatric Exam: Normal COUNT INCLUDES THE [facility] Medical History Breast pain, left Depression Elevated glucose level Injury of pelvis injury in the , surgery recommended after childbearing Miscarriage, threatened, early PCOS (polycystic ovarian syndrome) Treated with metformin in the past Pruritic urticarial papules and plaques of Superior labrum brzvhelq-io-ioihonbrg (SLAP) tear of right shoulder repaired 2015 Vaginal discharge during in third trimester Vaginal leukorrhea Surgical History (Updated 09/10/20 @ 10:31 by Juju Chapman CNM) History of cholecystectomy Family History (Updated 09/10/20 @ 10:29 by Juju Chapman CNM) Mother Diabetes type 2 Father Liver disease related to exposure to toxin while in [place] Paternal Grandfather Colon cancer also Paternal GGM and GGF Social History Smoking/Tobacco Use Status: Former Tobacco Use Quit Date: 08/19/18 Tobacco: How many years used: 12 Smoking risk assessment performed?: Yes Alcohol Intake: never Drug use: Never Substance use type: does not use Do you feel safe at home: Yes Do you feel safe in your relationship?: Yes History History 3 Para 1 Hx # Term Pregnancies 1 Multiple births 0 Hx # Pregnancies 0 Ectopic pregnancies 0 AB induced 0 Hx Number of Living Children 1 AB spontaneous 1 Past Pregnancies Del. Date GA/Weeks # Outcome Route Wgt Sex Labor Lgth Anesthes ia Location Prov Complic 12/31/16 41 No Successful vaginal 6 lb 11 oz Male 27 hrs regional [facility] Delivery Date: 12/31/16 IOL for low fluid and postdates, had a arceo cath (hated it), amnioinfusion for decels, epidural, quick 2nd stage. Juju Santana DS: Data Vitals/I&O Vitals and I&O: Vital Signs Temperature 97.3 F L 10/17/20 07:55 Pulse 118 H 10/17/20 07:55 Pulse Rhythm Regular 10/17/20 07:55 Respiratory Rate 16 10/17/20 07:55 Respiratory Depth Normal 10/17/20 00:50 Blood Pressure 103/72 10/17/20 07:55 Blood Pressure Mean 82 10/17/20 07:55 Pulse Oximetry 98 10/17/20 07:55 Pain Level 3 10/17/20 07:55 Comment 10/15/20 11:41 Intake & Output 10/16/20 10/16/20 10/17/20 11:59 23:59 11:59 Output Total 600 / 600 Balance -600 / -600 Output: Urine 600 / 600
== END 2020-10-17 13:25 | disposition home or self-care (01) | DRG 807 ==
LOC: BCD 15:37 → OBS 15:37
PROVIDERS: Advanced Practice Midwife; Admitting Provider Advanced Practice Midwife; PCP Registered Nurse; Visit Provider Advanced Practice Midwife
DX: O13.4 Gestational [pregnancy-induced] hypertension without significant proteinuria, complicating childbirth (principal); Z37.0 Single live birth; O99.284 Endocrine, nutritional and metabolic diseases complicating childbirth; E28.2 Polycystic ovarian syndrome; Z3A.37 37 weeks gestation of pregnancy; O70.0 First degree perineal laceration during delivery
CPT/HCPCS: 36415; 80053; 85027; 86850; 86900; 86901; 87635; 59025; 59200; 82565; 84156; 84550; J1200; J2405; J3010; J3490

== ENCOUNTER 2021-04-15 17:54 | Outpatient (REF) | payer MEDICAID, SELFPAY ==
[2021-04-17 15:00] LABS: Chlamydia Result Negative (Negative); GC Result Negative (Negative)
== END 2021-04-15 17:55 | disposition home or self-care (01) ==
LOC: LBN 17:54
PROVIDERS: PCP Registered Nurse; Visit Provider Physician Assistant Medical
DX: L29.8 Other pruritus (principal); R30.9 Painful micturition, unspecified
CPT/HCPCS: 87491; 87591; 87086; 87480; 87510; 87660

== ENCOUNTER 2021-06-04 11:14 | Emergency (ER) | payer MEDICAID, SELFPAY ==
[2021-06-04 11:22] VITALS: BP 124/77; PULSE 102; RESP 14; TEMP 36.5; O2SAT 98
--- NOTE | 2021-06-04 11:52 | ED.GENADUL_ITS ---
Discharge Plan Disposition Patient Disposition: HOME Condition: Improving Discharge Details Clinical Impression: Pharyngitis, Otalgia, Paresthesias Primary Care Provider: Laya Owen ED Provider: Javier Chambers Home Meds and New Rx's Prescriptions: New meclizine 25 mg tablet 25 mg PO TID PRN (Reason: dizziness) Qty: 10 0RF Continued prenat.vits,candelaria,ryk-tenw-lmsuy Tablet See Rx Instructions PO DAILY 0RF Rx Instructions: 2 tabs PO daily; gummy vitamins. norethindrone (contraceptive) [Gardenia] 0.35 mg tablet 0.35 mg PO DAILY Qty: 28 11RF sertraline 50 mg tablet 100 mg PO DAILY 0RF Discharge Instructions Instructions: Pharyngitis (ED), Earache (ED) Additional Instructions: Work-up in the ER does not reveal any obvious emergent process. Meclizine as directed. Ffbf-lrs-dhbcmmr antihistamines, decongestants, anti-inflammatories as directed for symptomatic control. Plenty of fluids to avoid dehydration. Please watch for new or worsening symptoms and return to the ER for any concerns. As we discussed, your white blood cell count was slightly low and this can be very normal and a viral syndrome setting however once you are feeling better I do recommend getting this rechecked through your primary care provider. Please contact them tomorrow to make them aware of your ER visit, ongoing symptoms, need for outpatient reevaluation. Discharge Data Discharge Date/Time-TO BE ENTERED AT DEPARTURE: 06/04/21 14:36 Medical Decision Making 30-year-old female, denies significant past medical history presents to the ER reporting yesterday had nausea and vomiting x2, and then this morning began with sore throat, bilateral ear discomfort, intermittent tingling of the face and tongue, twitching of the eyelid, and then a sensation of muscular twitching that goes in order of the right shoulder, left hip, right knee, right ankle. Clinically she appears well, nontoxic. She denies recent illness or trauma. Re ports her also has a sore throat and ear pressure. She has not taken any medication prior to arrival. Visual acuity bilaterally 20/20, both left eye and right eye separately 20/25. She is neurologically intact, no evidence of nystagmus. Patient does tell me that feeling from the lying down to sitting up position or movement of her head makes the symptoms worse. I do question with the sore throat and ear pressure if she could be having some eustachian tube dysfunction causing inner ear symptoms and subsequently vertigo. I am unable to identify any abnormal eye movement, I with movement, her cranial nerves are intact, there is no abnormal movement of her right shoulder, left hip, right knee or ankle. I see no neurologic deficit and given her symptoms cross midline, low suspicion for acute intracranial process although certainly some atypical central lesion or mass could be the etiology of her symptoms. Plan is to obtain IV access, give IV fluid and Zofran as well as p.o. meclizine and IV Toradol Will obtain routine screening laboratory values and obtain a head CT. Negative rapid strep, culture pending Upon reevaluation patient reports symptoms are slightly improving. She is using her cell phone without difficulty and has been ambulatory to the restroom multiple times without assistance. Clinically she appears well, nontoxic, neurologically intact. Laboratory values reveal mild nonspecific leukopenia at 3.83 otherwise grossly unremarkable. Head CT is unremarkable for acute process. Discussed work-up with patient. Patient continues to report that her symptoms are improving although have not resolved completely. We discussed the importance of treating her symptoms with fyhw-zoz-lfbkfke medications such as Tylenol, Motrin, antihistamines and decongestants. I will provide a prescription for meclizine. We did discuss her mild nonspecific leukopenia which certainly could be secondary to a viral infection but do recommend that she contact her primary care provider to discuss her symptoms and need for further evaluation. I do recommend that she does have her blood redrawn to assess for cardiac lipemia as well as the potential need for outpatient referral to special such as neurology if she continues to have these atypical symptoms. Standard discharge and return precautions were provided. Patient reports that her symptoms continue to improve while they are not come sleep the resolved just yet. She is comfortable discharge at this time. This documentation was generated using Vivino[employer] system, please disregard any oddities of phrase or misspellings. Medical Records Medical records reviewed: Yes I reviewed the patient's medical records. Imaging Data Radiologic Study: Attestation: I personally reviewed and interpreted this imaging study as follows: Imaging: CT Scan Radiologist's impression: Exam(s) CT HEAD WO EXAM: CT HEAD WO CLINICAL HISTORY: Paresthesias, head pressure, muscle twitching. TECHNIQUE: Imaging Protocol: Axial computed tomography images with coronal and sagittal reformatted images were created and reviewed COMPARISON: No exams were available for comparison FINDINGS: There are no skull fractures nor fluid in the visualized paranasal sinuses. There is no evidence of intracranial hemorrhage, mass effect, or shift of midline structures. There are no extra-axial fluid collections. The ventricles are not enlarged or shifted and there is no blood within the ventricular system nor within the basal cisterns. IMPRESSION: No acute intracranial findings on this noninfused CT scan of the brain. Lab Data Lab results reviewed: Yes I reviewed the patient's lab results. Labs: 06/04/21 12:20 Urine - Reflex from Ua Urine Culture - Pending 06/04/21 11:40 Pharynx Group A Streptococcus Culture - Pending Laboratory Tests Range/Units 06/04/21 06/04/21 06/04/21 11:45 11:45 12:20 WBC (4.4-10.8) 10^3/uL 3.83 L RBC (3.93-5.22) 10^6/uL 4.19 Hgb (11.2-15.7) g/dL 13.2 Hct (36.0-46.0) % 39.4 MCV (80-95) fL 94.0 MCH (27.0-33.0) pg 31.5 MCHC (32.0-36.0) % 33.5 RDW (11.7-14.6) % 12.9 Plt Count (130-400) 10^3/uL 232 MPV (8.0-11.0) fL 9.2 Immature Gran % 0.3 Neutrophils % 61.7 Lymphocytes % 22.5 Monocytes % 14.4 Eosinophils % 0.3 Basophils % 0.8 Nucleated RBC % % 0 Absolute Neutrophils (1.2-6.7) 10^3/uL 2.36 Absolute Lymphocytes (1.2-3.4) 10^3/uL 0.86 L Absolute Monocytes (0.1-0.8) 10^3/uL 0.55 Absolute Eosinophils (0.0-0.7) 10^3/uL 0.01 Absolute Basophils (0.0-0.2) 10^3/uL 0.03 Sodium (136-145) mmol/L 140 Potassium (3.5-5.1) mmol/L 3.5 Chloride (98-107) mmol/L 106 Carbon Dioxide (21.0-32.0) mmol/L 24.3 Anion Gap (3-11) mmol/L 9.7 BUN (7-18) mg/dL 9 Creatinine (0.55-1.02) mg/dL 0.7 Estimated GFR/1.73 m2 (mL/min/1.73m2) >= 60.00 Glucose (74-106) mg/dL 144 H Calcium (8.5-10.1) mg/dL 8.7 Total Bilirubin (0.2-1.0) mg/dL 0.3 AST (15-37) U/L 18 ALT (14-59) U/L 41 Alkaline Phosphatase (46-116) U/L 80 Total Protein (6.4-8.2) g/dL 8.1 Albumin (3.4-5.0) g/dL 4.0 Urine Color (Yellow) Urine Clarity (Clear) Urine pH (5-8) Ur Specific [place] (1.005-1.025) Urine Protein (Negative) mg/dL Urine Ketones (Negative) mg/dL Urine Blood (Negative) Urine Nitrite (Negative) Urine Bilirubin (Negative) Urine Urobilinogen (Up TO 0.2) EU/dL Ur Leukocyte Esterase (Negative) Urine RBC (0-2) HPF Urine WBC (0-5) HPF Ur Epithelial Cells (Negative) HPF Urine Crystals (Negative) HPF Urine Bacteria (Negative) HPF Urine Casts (Negative) LPF Urine Mucus (Negative) Ur Culture Indicated? Urine Glucose (Negative) mg/dL Urine Opiates Screen (Negative) Negative Urine Methadone Screen (Negative) Negative Ur Barbiturates Screen (Negative) Negative Ur Tricyclics Screen (Negative) Negative Ur Amphetamines Screen (Negative) Negative U Benzodiazepines Scrn (Negative) Negative Urine Cocaine Screen (Negative) Negative Ur THC Screen (Negative) Negative Range/Units 06/04/21 12:20 WBC (4.4-10.8) 10^3/uL RBC (3.93-5.22) 10^6/uL Hgb (11.2-15.7) g/dL Hct (36.0-46.0) % MCV (80-95) fL MCH (27.0-33.0) pg MCHC (32.0-36.0) % RDW (11.7-14.6) % Plt Count (130-400) 10^3/uL MPV (8.0-11.0) fL Immature Gran % Neutrophils % Lymphocytes % Monocytes % Eosinophils % Basophils % Nucleated RBC % % Absolute Neutrophils (1.2-6.7) 10^3/uL Absolute Lymphocytes (1.2-3.4) 10^3/uL Absolute Monocytes (0.1-0.8) 10^3/uL Absolute Eosinophils (0.0-0.7) 10^3/uL Absolute Basophils (0.0-0.2) 10^3/uL Sodium (136-145) mmol/L Potassium (3.5-5.1) mmol/L Chloride (98-107) mmol/L Carbon Dioxide (21.0-32.0) mmol/L Anion Gap (3-11) mmol/L BUN (7-18) mg/dL Creatinine (0.55-1.02) mg/dL Estimated GFR/1.73 m2 (mL/min/1.73m2) Glucose (74-106) mg/dL Calcium (8.5-10.1) mg/dL Total Bilirubin (0.2-1.0) mg/dL AST (15-37) U/L ALT (14-59) U/L Alkaline Phosphatase (46-116) U/L Total Protein (6.4-8.2) g/dL Albumin (3.4-5.0) g/dL Urine Color (Yellow) Yellow Urine Clarity (Clear) Clear Urine pH (5-8) 6.0 Ur Specific [place] (1.005-1.025) 1.025 Urine Protein (Negative) mg/dL Negative Urine Ketones (Negative) mg/dL Negative Urine Blood (Negative) Negative Urine Nitrite (Negative) Negative Urine Bilirubin (Negative) Negative Urine Urobilinogen (Up TO 0.2) EU/dL 0.2 Ur Leukocyte Esterase (Negative) Trace H Urine RBC (0-2) HPF 0-2 Urine WBC (0-5) HPF 5-10 Ur Epithelial Cells (Negative) HPF Few Urine Crystals (Negative) HPF Negative Urine Bacteria (Negative) HPF Few Urine Casts (Negative) LPF Negative Urine Mucus (Negative) Negative Ur Culture Indicated? Yes Urine Glucose (Negative) mg/dL Negative Urine Opiates Screen (Negative) Urine Methadone Screen (Negative) Ur Barbiturates Screen (Negative) Ur Tricyclics Screen (Negative) Ur Amphetamines Screen (Negative) U Benzodiazepines Scrn (Negative) Urine Cocaine Screen (Negative) Ur THC Screen (Negative) HPI General Mode of arrival: ambulatory . Date/Time Provider Initiated Documentation: 06/04/21 11:14 . Limitations to Documentation: no limitations . Information obtained by: patient . HPI Narrative: This is a 30-year-old female, denies significant past medical history, presenting to the ER with multiple complaints that include yesterday feeling nauseous, vomiting x2, sore throat and nasal congestion, had similar symptoms. Today she reports that she does has a overall feeling like she is drunk, reports occasional tingling in her face worse with movements of her eyes, eyelid twitching which subsequently turned into her right shoulder twitch ing, left hip twitching, and then right knee and ankle twitching. She denies recent trauma. She denies headache, fever, visual changes, neck pain, chest pain, shortness of breath, abdominal pain, change in bowel or bladder function, focal weakness, or numbness. She has not taken any vfmb-xvv-zwbibuh medication for her symptoms. Reports bilateral ear pain, right worse than left. Related Data Home Medications Medication Instructions Recorded Confirmed prenat.vits,candelaria,rkf-nqxj-zzqek See Rx Instructions PO DAILY 03/06/20 06/04/21 norethindrone (contraceptive) 0.35 0.35 mg PO DAILY #28 tab 10/29/20 06/04/21 mg tablet (Gardenia) meclizine 25 mg tablet 25 mg PO TID PRN #10 tab 06/04/21 sertraline 50 mg tablet 100 mg PO DAILY 06/04/21 06/04/21 Previous Rx's Medication Instructions Recorded norethindrone (contraceptive) 0.35 0.35 mg PO DAILY #28 tab 10/29/20 mg tablet (Gardenia) meclizine 25 mg tablet 25 mg PO TID PRN #10 tab 06/04/21 Allergies Allergy/AdvReac Type Severity Reaction Status Date / Time Sulfa (Sulfonamide AdvReac Intermediate vomiting Verified 06/04/21 11:31 Antibiotics) General Stated Complaint: GenMedical YASEMIN: 3 Review of Systems Constitutional Constitutional: Denies fatigue, Denies fever(s), Denies headache(s) and Denies weakness Eyes Eyes: Denies change in vision ENT Ears, Nose, Mouth, and Throat: Denies headache(s) and Denies neck pain Cardiovascular Cardiovascular: Denies chest pain and Denies dyspnea Respiratory Respiratory: Denies dyspnea Gastrointestinal Gastrointestinal: Denies abdominal pain, Reports nausea and Reports vomiting Musculoskeletal Musculoskeletal: Denies back pain, Denies neck pain, Denies numbness, Denies stiffness and Reports tingling Integumentary/Breasts Skin/Breast: Denies rash Neurologic Neurologic: Denies headache(s), Denies numbness, Reports tingling and Denies weakness Endocrine Endocrine: Denies fatigue PFSH All Active Problems (Updated 06/04/21 @ 14:27 by LEVI Reid) Pharyngitis (Acute) Otalgia (Acute) Paresthesias (Acute) care and examination (Acute) 2 weeks follow-up (Acute) (Acute) Irregular uterine contractions (Acute) Encounter for induction of labor (Acute) Vaginal delivery (Acute) Gestational hypertension w/o significant proteinuria in 3rd trimester (Acute) Pruritic urticarial papules and plaques of (Acute) Dental root implant present (Acute) Injury of pelvis (Acute) injury in the , surgery recommended after childbearing Headache (Acute) Depression (Chronic) Personal history of female infertility (Acute) PCOS (polycystic ovarian syndrome) (Acute) Treated with metformin in the past Breast pain, left (Acute) Medical History Elevated glucose level Miscarriage, threatened, early Superior labrum hcasuqgu-qq-voqjbptra (SLAP) tear of right shoulder repaired 2015 Vaginal discharge during in third trimester Vaginal leukorrhea Surgical History History of cholecystectomy Family History Mother Diabetes type 2 Father Liver disease related to exposure to toxin while in [place] Paternal Grandfather Colon cancer also Paternal GGM and GGF Social History Smoking/Tobacco Use Status: Former Tobacco Use Quit Date: 08/19/18 Tobacco: How many years used: 12 Smoking risk assessment performed?: Yes Alcohol Intake: current Alcohol Intake frequency: holidays/special occasions only Drug use: Never Substance use type: does not use Do you feel safe at home: Yes Do you feel safe in your relationship?: Yes History History 3 Para 2 Hx # Term Pregnancies 2 Multiple births 0 Hx # Pregnancies 0 Ectopic pregnancies 0 AB induced 0 Hx Number of Living Children 2 AB spontaneous 1 Past Pregnancies Del. Date GA/Weeks # Outcome Route Wgt Sex Labor Lgth Anesthes ia Location Prov Complic 12/31/16 41 No Successful vaginal 3033.399 g Male 27 hrs regional [facility] Midwifery Sv 10/15/20 37 No Successful vaginal Male Denisse bro CNM Delivery Date: 12/31/16 Last Updated by: Juju Contreras CNM IOL for low fluid and postdates, had a arceo cath (hated it), amnioinfusion for decels, epidural, quick 2nd stage. Carlos Delivery Date: 10/15/20 Last Updated by: DARI Mi Exam Const General: cooperative, healthy appearing, comfortable and no acute distress Orientation: alert, awake and oriented x3 HENMT Head: normal to inspection, normocephalic and atraumatic Ears: external ears normal, TM's normal bilaterally and EAC's normal General nose exam: external nose normal Face and sinus: normal facial exam Mouth: oral mucosae normal and moist mucous membranes Throat: posterior oropharynx normal Eyes General: appearance normal, both eyes and all related structures Alignment and Position: alignment normal Periorbital: periorbital findings normal Eyelids: eyelids normal Conjunctivae: conjunctivae normal Sclera: sclerae normal Cornea: corneas normal Pupils: PERRL EOM: EOM intact bilaterally Direct ophthalmoscopy: normal light reflex Other: No vertical or horizontal nystagmus identified Neck Neck: normal visual inspection, full ROM, no meningeal signs, trachea midline, supple and nontender Resp Effort & Inspection: normal respiratory effort and able to speak in complete sentences Auscultation: clear to auscultation bilaterally Cardio Rate: regular rate Rhythm: regular rhythm GI Palpation: soft and nontender Back/Spine/Pelvis Back: No back tenderness Skin General skin exam: no rashes or lesions noted Neuro General: patient alert, patient awake, patient oriented x3, moves all extremities and no focal motor deficits Cranial Nerves: CN's II-XI intact bilaterally Cognition: normal cognition Speech: speech normal Gait: normal gait Motor: muscle tone normal throughout, strength 5/5 throughout, no movement abnormalities noted and no fasciculations Sensory Exam: no sensory deficits noted Extrem General: normal to inspection, full ROM, capillary refill normal, no pedal edema and no calf tenderness Psych Appearance: grossly normal Mental Status: mental status grossly normal Course Vital Signs Vital signs: Vital Signs Temperature 36.5 C 06/04/21 11:22 Pulse 102 H 06/04/21 11:22 Respiratory Rate 14 06/04/21 11:22 Blood Pressure 124/77 06/04/21 11:22 Pulse Oximetry 98 06/04/21 11:22 Temperature 36.5 C 06/04/21 11:22 Temperature Source Temporal Artery Scan 06/04/21 11:22 Pulse 102 H 06/04/21 11:22 Respiratory Rate 14 06/04/21 11:22 Respiratory Effort Non-Labored 06/04/21 11:29 Blood Pressure 124/77 06/04/21 11:22 Blood Pressure Position Sitting 06/04/21 11:22 Pulse Oximetry 98 06/04/21 11:22 Oxygen Delivery Method Room Air 06/04/21 11:22 Oxygen Flow Rate 0 06/04/21 11:22 Pain Level 6 06/04/21 11:22 PAWSS Have you Been Recently Intoxicated or Drunk Within the Last 30 days?: No Have you Ever Experienced Previous Episodes of Alcohol Withdrawal?: No Have you ever Experienced Withdrawal Seizures?: No Have you ever Experienced Delirium Tremens(DT)s?: No Have you ever undergone Alcohol Rehabilitation Treatment (i.e, inpt ot outpatient treatment programs)?: No Have you ever Experienced Blackouts?: No Have you ever Combined Alcohol with other Downers within the last 90 days?: No Have you ever Combined Alcohol with any other Substance of Abuse during the last 90 days?: No Positive Blood Alcohol level on Presentation? [PCS.BAL]: No Evidence of Increased Autonomic Activity (i.e. HR>120, tremor, sweating, agitation, nausea)?: No Result: 0
[2021-06-04 12:18] LABS: Abs Immature Grans 0.01 10^3/uL (0.0-0.06); Absolute Basophil Count 0.03 10^3/uL (0.0-0.2); Absolute Eosinophil Count 0.01 10^3/uL (0.0-0.7); Absolute Lymphocyte Count 0.86 10^3/uL (1.2-3.4); Absolute Monocyte Count 0.55 10^3/uL (0.1-0.8); Basophils % 0.8; Eosinophils % 0.3; HCT 39.4 % (36.0-46.0); HGB 13.2 g/dL (11.2-15.7); Immature Grans % 0.3; Lymphocytes % 22.5; MCH 31.5 pg (27.0-33.0); MCHC 33.5 % (32.0-36.0); MPV 9.2 fL (8.0-11.0); Monocytes % 14.4; Neutrophils % 61.7; Nucleated RBC 0 %; Platelet Count 232 10^3/uL (130-400); RBC 4.19 10^6/uL (3.93-5.22); RDW 12.9 % (11.7-14.6); RDW-SD 44.6 fL; WBC 3.83 10^3/uL (4.4-10.8)
[2021-06-04 12:19] LABS: Absolute Neutrophil Count 2.36 10^3/uL (1.2-6.7)
[2021-06-04] MEDS: Normal Saline 1,000 ML 1000 ML IV (12:36)
[2021-06-04 12:37] LABS: ALT 41 U/L (14-59); AST 18 U/L (15-37); Alkaline Phosphatase 80 U/L (46-116); Anion Gap 9.7 mmol/L (3-11); BUN 9 mg/dL (7-18); Bilirubin, Total 0.3 mg/dL (0.2-1.0); CO2 24.3 mmol/L (21.0-32.0); CREATININE 0.7 mg/dL (0.55-1.02); Calcium 8.7 mg/dL (8.5-10.1); Chloride 106 mmol/L (98-107); Glucose 144 mg/dL (74-106); Potassium 3.5 mmol/L (3.5-5.1); Sodium 140 mmol/L (136-145); Total Protein 8.1 g/dL (6.4-8.2)
[2021-06-04 12:45] LABS: Bilirubin Negative (Negative); Blood Negative (Negative); Clarity Clear (Clear); Glucose Negative (Negative); Ketones Negative (Negative); Leukocyte Esterase Trace (Negative); Nitrite Negative (Negative); Specific Gravity 1.025 (1.005-1.025); Urobilinogen 0.2 EU/dL (Up TO 0.2)
--- NOTE | 2021-06-04 12:45 | DI.CT_ITS ---
Exam(s) CT HEAD WO EXAM: CT HEAD WO CLINICAL HISTORY: Paresthesias, head pressure, muscle twitching. TECHNIQUE: Imaging Protocol: Axial computed tomography images with coronal and sagittal reformatted images were created and reviewed COMPARISON: No exams were available for comparison FINDINGS: There are no skull fractures nor fluid in the visualized paranasal sinuses. There is no evidence of intracranial hemorrhage, mass effect, or shift of midline structures. There are no extra-axial fluid collections. The ventricles are not enlarged or shifted and there is no blo od within the ventricular system nor within the basal cisterns. IMPRESSION: No acute intracranial findings on this noninfused CT scan of the brain. RADIATION DOSE DELIVERED: 760.74mGy.cm Total DLP DATA REPOSITORY: All CT scans at this facility are submitted to the National Radiology Data Registry (NRDR) Dose Index Registry (DIR) with the [employer] ([employer]). RADIATION OPTIMIZATION: All CT scans at this facility use at least one of these dose optimization te chniques: automated exposure control; mA and/or kV adjustment per patient size (includes targeted exa ms where dose is matched to clinical indication); or iterative reconstruction.
[2021-06-04 12:53] LABS: Bacteria Few HPF (Negative); C & S Indicated? Yes; Casts Negative LPF (Negative); Crystals Negative HPF (Negative); Epithelial Cells Few HPF (Negative); Mucus Negative (Negative); RBC 0-2 HPF (0-2)
[2021-06-04 13:00] VITALS: BP 103/71; PULSE 74; RESP 18; O2SAT 98
[2021-06-04] MEDS: Meclizine 25 MG TAB PO (13:06)
[2021-06-04] MEDS: Ketorolac 30 MG/ML VIAL IVP (13:06)
[2021-06-04 13:09] LABS: *AMPHETAMINES SCREEN URINE Negative (Negative); *BARBITURATES SCREEN URINE Negative (Negative); *BENZODIAZEPINES SCREEN URINE Negative (Negative); Cannabinoids THC Negative (Negative); Cocaine Screen,Urine Negative (Negative); METHADONE URINE SCREEN Negative (Negative); OPIATES URINE SCREEN Negative (Negative)
[2021-06-04 13:11] LABS: Tricyclic Antidepressants Negative (Negative)
--- NOTE | 2021-06-04 14:12 | SUR.PHASEI ---
pt in room constantly on phone using phone applications without difficulty pt able to walk easily and independently to restroom
== END 2021-06-04 14:36 | disposition home or self-care (01) ==
PROVIDERS: Emergency Provider Physician Assistant; PCP Registered Nurse
DX: J02.9 Acute pharyngitis, unspecified (principal); R20.2 Paresthesia of skin; H92.03 Otalgia, bilateral; R11.2 Nausea with vomiting, unspecified; R25.3 Fasciculation
CPT/HCPCS: 36415; 80053; 80307; 81025; 87880; 96361; 96374; 99284; 70450; 81003; 81015; 85025; 87081; 87086; J1885

== ENCOUNTER → 2021-10-28 18:03 | Outpatient (CLI) | payer OTHER, MEDICAID, SELFPAY ==
--- NOTE | 2021-10-28 | DI.RAD_ITS ---
Exam(s) XR ELBOW LT COMPLETE EXAM: XR ELBOW LT COMPLETE CLINICAL HISTORY: Elbow pain, left injury 3 weeks ago. TECHNIQUE: 2D digital imaging was performed. COMPARISON: No exams were available for comparison FINDINGS: 3 views No fracture or dislocation. No joint effusion. No swelling of the olecranon bursa. Radial head and neck unremarkable. Epicondyles unremarkable. No degenerative changes. No osteochondral defects. Bone density normal. No osseous lesions. IMPRESSION: No significant findings. DATA REPOSITORY: RADIATION DOSE DELIVERED:
--- NOTE | 2021-10-28 18:48 | DI.VRAD_ITS ---
PROCEDURE INFORMATION: Exam: XR Left Elbow Exam date and time: 10/28/2021 6:24 PM Age: 30 years old Clinical indication: Other: Elbow pain, lefty injury 3 week ago TECHNIQUE: Imaging protocol: Radiologic exam of the Left elbow. Views: 3 or more views. COMPARISON: No relevant prior studies available. FINDINGS: Bones/joints: Osseous mineralization is normal. There are no inflammatory osseous erosive changes. The joint spaces are maintained without degenerative changes. There is no evidence of a joint effusion. There are no acute displaced fractures or subluxations. No focal osseous lesions are identified. Soft tissues: There is no soft tissue swelling or soft tissue air. IMPRESSION: No acute displaced fractures or subluxations identified. Dictated and Authenticated by: Ray Aguayo MD. Ordering:BRY Solitario MD
== END ==
PROVIDERS: PCP Registered Nurse; Visit Provider Physician Assistant Medical
DX: M25.522 Pain in left elbow (principal)
CPT/HCPCS: 73080

== ENCOUNTER → 2022-03-09 01:19 | Outpatient (CLI) | payer OTHER, SELFPAY ==
--- NOTE | 2022-03-09 | DI.MAMMO_ITS ---
Exam(s) MAMMO SCREENING EXAM: MAMMO SCREENING CLINICAL HISTORY: SCREENING, Z12.39,[id number]. TECHNIQUE: Bilateral full field digital CC and MLO mammographic images were obtained with 3D tomosyn thesis and utilizing computer aided detection (CAD). COMPARISON: None. This is a baseline mammogram on this 31-year-old patient FINDINGS: There are no CAD designations. There are no spiculated masses nor malignant appearing microcalcification groups. There is no significant architectural distortion nor skin thickening-retraction. IMPRESSION: No radiographic evidence of malignancy. BI-RADS Category 1 - Negative Breast Density - Category B - Scattered areas of fibroglandular density Breast density Category C or D implies that the patient has dense breast tissue. Dense breast tissue can make it harder to find cancer on a mammogram. Dense breast tissue is also associated with an incr eased risk of breast cancer. This information about the result of the mammogram report was provided to the patient to raise their awareness. Use this report when you speak with the patient about their risks for breast cancer, which includes their family history. At that time, you may recommend additional screening tests (Ultrasoun d or MRI) as these tests may add significant information. A negative radiographic report should not delay biopsy if a dominant or clinically suspicious mass is present. Up to ten percent of cancers are not identified on mammography. A negative report may reinforce clinical impression. Adenosis and dense breasts may obscure an underlying neoplasm. False positive reports average 6 to 10%. Patient will receive a letter notifying them of these results.
== END ==
PROVIDERS: PCP Registered Nurse; Visit Provider Nurse Practitioner Acute Care
DX: Z12.31 Encounter for screening mammogram for malignant neoplasm of breast (principal)
CPT/HCPCS: 77063; 77067

== ENCOUNTER 2022-06-21 03:31 | Outpatient (CLI) | payer OTHER, SELFPAY ==
[2022-06-21 09:37] LABS: Abs Immature Grans 0.03 10^3/uL (0.0-0.06); Absolute Basophil Count 0.04 10^3/uL (0.0-0.2); Absolute Eosinophil Count 0.08 10^3/uL (0.0-0.7); Absolute Lymphocyte Count 1.83 10^3/uL (1.2-3.4); Absolute Monocyte Count 0.43 10^3/uL (0.1-0.8); Absolute Neutrophil Count 3.51 10^3/uL (1.2-6.7); Basophils % 0.7; Eosinophils % 1.4; HCT 39.4 % (36.0-46.0); HGB 13.6 g/dL (11.2-15.7); Immature Grans % 0.5; Lymphocytes % 30.9; MCH 31.9 pg (27.0-33.0); MCHC 34.5 % (32.0-36.0); MCV 92 fL (80-95); MPV 8.9 fL (8.0-11.0); Monocytes % 7.3; Neutrophils % 59.2; Platelet Count 314 10^3/uL (130-400); RBC 4.27 10^6/uL (3.93-5.22); RDW 12.4 % (11.7-14.6); WBC 5.92 10^3/uL (4.4-10.8)
[2022-06-21 09:40] LABS: ESR 10 mm/hr (0-20)
[2022-06-21 10:02] LABS: HCG Quant, Pregnancy 28 mIU/mL (1-3)
[2022-06-21 10:13] LABS: C-Reactive Protein 0.37 mg/dL (0.0-0.3)
== END 2022-06-21 03:32 | disposition home or self-care (01) ==
LOC: LBO 03:32
PROVIDERS: Physician Assistant; PCP Registered Nurse; Visit Provider Student in an Organized Health Care Education/Training Program
DX: N91.0 Primary amenorrhea (principal); M25.511 Pain in right shoulder
CPT/HCPCS: 36415; 85652; 84702; 85025; 86140

== ENCOUNTER 2022-06-23 09:49 | Outpatient (CLI) | payer MEDICAID, SELFPAY ==
[2022-06-23 08:09] LABS: HCG Quant, Pregnancy 7 mIU/mL (1-3)
== END 2022-06-23 09:50 | disposition home or self-care (01) ==
PROVIDERS: PCP Registered Nurse; Visit Provider Obstetrics & Gynecology
DX: N91.0 Primary amenorrhea (principal)
CPT/HCPCS: 36415; 84702

== ENCOUNTER 2022-06-29 02:38 | Outpatient (CLI) | payer MEDICAID, SELFPAY ==
[2022-06-29 14:17] LABS: HCG Quant, Pregnancy 1 mIU/mL (1-3)
== END 2022-06-29 02:39 | disposition home or self-care (01) ==
LOC: LBO 02:38
PROVIDERS: PCP Registered Nurse; Visit Provider Obstetrics & Gynecology
DX: O03.9 Complete or unspecified spontaneous abortion without complication (principal)
CPT/HCPCS: 36415; 84702

== ENCOUNTER 2022-08-05 08:56 | Day surgery (SDC) | payer OTHER, SELFPAY ==
[2022-08-05] VITALS (9 sets, daily range): BP systolic 95–128; BP diastolic 54–84; PULSE 84–102; RESP 17–20; TEMP 36.2–36.8; O2SAT 94–99; BMI 29.5
[2022-08-05] MEDS: Lactated Ringers 1,000 ML 80 ML IV (09:47)
--- NOTE | 2022-08-05 10:37 | W.ANESPRE ---
General Info Date of Service Date Performed: 08/05/22 Height: 5 ft 7 in Weight: 85.6 kg Body Mass Index (BMI): 29.5 Surgical Procedure: Operation Date: 08/05/22 12:40 Proposed Procedure Side Surgeon p Shoulder Rotator Cuff Arthroscopic w/Extensive Debridement, Biceps Tenodesis, Subacromial Decompression and Synovial Biopsy Right Ozzy Winston MD Meds Allergies and Home Medications Allergies Allergy/AdvReac Type Severity Reaction Status Date / Time Sulfa (Sulfonamide AdvReac Intermediate vomiting Verified 08/05/22 09:12 Antibiotics) Home Medication Medication Instructions Recorded meclizine 25 mg tablet 25 mg PO TID PRN dizziness #10 tabs 06/04/21 bupropion HCl 150 mg 24 hr tablet, 150 mg PO BID 05/12/22 extended release Current Visit Medications: Current Medications Generic Name Dose Route Start Last Admin Trade Name Freq PRN Reason Stop Dose Admin Ringer's Solution 1,000 mls @ 80 mls/hr 08/05/22 06:00 08/05/22 09:47 IV 09/03/22 23:59 80 mls/hr INFUSION ZACARIAS Administration Cefazolin Sodium/Dextrose 2 gm in 50 mls @ 100 mls/hr 08/05/22 06:00 Ancef Duplex IVPB 09/03/22 23:59 PREOP ZACARIAS IV Miscellaneous Supplies 1 each 08/05/22 06:00 Iv Access IV 09/03/22 23:59 DIRECTED ZACARIAS Sodium Chloride 0 ml 08/05/22 06:00 Normal Saline Flush 10 Ml Syr IV 09/03/22 23:59 PRN PRN Sodium Chloride 0 ml 08/05/22 06:00 Normal Saline 10 Ml Vial IJ 09/03/22 23:59 DIRECTED PRN Sterile Water 0 ml 08/05/22 06:00 Water,Injection,Sterile 10 Ml Vial IJ 09/03/22 23:59 DIRECTED PRN PFSH Active Problems Active Problems: Problem Status Onset Code Breast pain, left N64.4 PCOS (polycystic ovarian syndrome) E28.2 Personal history of female infertility Z87.42 Depression F32.9 Headache R51.9 Injury of pelvis S39.93XA Dental root implant present Z97.2 Shoulder pain, right M25.511 Miscarriage O03.9 Tendonitis of long head of biceps brachii of right shoulder M75.21 Bursitis of right shoulder M75.51 Medical History Medical History Elevated glucose level Miscarriage, threatened, early Superior labrum ykflmomq-xx-wgjwwqcjx (SLAP) tear of right shoulder repaired 2015 Vaginal delivery Vaginal discharge during in third trimester Vaginal leukorrhea Surgical History Surgical History History of cholecystectomy History of shoulder surgery Rt SLAP repair Tobacco Smoking/Tobacco Use Status: Current every day Tobacco Type: e-cigarettes Alcohol Alcohol Intake: current Alcohol intake frequency: holidays/special occasions only Substance Use Substance use: Rarely Substance use type: marijuana Prental History History 3 Para 2 Hx # Term Pregnancies 2 Multiple births 0 Hx # Pregnancies 0 Ectopic pregnancies 0 AB induced 0 Hx Number of Living Children 2 AB spontaneous 1 Past Pregnancies Del. Date GA/Weeks # Preg Succ Route Wgt Sex Labor Lgth Anesthesia Location Prov Complic 12/31/16 41 No vaginal 3033.399 g Male 27 hrs [place] [facility] [place] 37 No vaginal Male JANETH Sharma Delivery Date: 12/31/16 Last Updated by: Juju Contreras CNM IOL for low fluid and postdates, had a arceo cath (hated it), amnioinfusion for decels, epidural, quick 2nd stage. Carlos Delivery Date: 10/15/20 Last Updated by: DARI Mi Vital Signs and Lab Results Vital Signs Most Recent Vital Signs in EMR: Most Recent Vital Signs Temp Pulse Resp BP Pulse Ox 36.8 C 102 H 18 102/73 98 08/05/22 09:13 08/05/22 09:13 08/05/22 09:13 08/05/22 09:13 08/05/22 09:13 Point of Care Results Point of Care Results: POC- Test(urine) Negative 08/05/22 09:13 Lab Results Blood Type / Crossmatch: No Data to Display Complete Blood Count: No Data to Display Complete Metabolic Panel: No Data to Display Liver Function Panel: No Data to Display Coagulation Panel: No Data to Display Cardiac Panel: No Data to Display Arterial Blood Gas: No Data to Display Venous Blood Gas: No Data to Display Pancreas Panel: No Data to Display Thyroid Panel: No Data to Display Infectious Disease: No Data to Display Blood Cultures: No Data to Display Toxicology Panel: No Data to Display Panel: No Data to Display Anesthesia Assessment and Plan Anesthesia History Personal History: No History of Anesthesia Complications Family History: No Family History of Anesthesia Complications Exercise Tolerance Exercise Tolerance: Metabolic Equivalents>4 Pertinent Negatives Pertinent Negatives: No Symptoms of GERD, No Major Cardiovascular Symptoms or Complaints, No Major Pulmonary Symptoms or Complaints and No History of CVA/TIA Cardiac & Pulmonary Exam Cardiac Exam: Normal S1/S2 Heart Sounds Pulmonary Exam: Clear Bilateral Breath Sounds Implantable Cardiac Device Does patient have a Pacemaker or an ICD?: No Airway Exam Known Difficult Airway: No Mallampati Class: 2 Mouth Opening: Normal (> 3cm) Thyromental Distance: Greater than 3 cm Neck Range of Motion: Full ROM Neck Circumference: Normal Teeth Condition: Normal Dentition ASA Classification ASA Score: ASA 2 Emergency Case?: No NPO Status NPO Status: NPO Clears >2 hours, Solids >8 hours Status Status: Not Per Patient and Negative HCG Anesthesia Plan Resuscitation Status: Full Code Anesthesia Technique: General Anesthesia Airway Planned: Endotracheal Tube Pain Management: Surgeon and patient request nerve block Monitors Used: Standard Monitors
--- NOTE | 2022-08-05 11:33 | W.ANESNERVE ---
Nerve Block Single Injection Procedure Date and Time Date Performed: 08/05/22 Procedure Start: 11:10 Location Where Procedure Performed Procedure Location: Day Surgery Unit Reason Performed: Postoperative Analgesia Requesting Provider: Ozzy Winston Timeout Performed Timeout Performed: Yes Monitoring Used ECG, Blood Pressure and SpO2 Sterility Sterility: Hand Hygiene, Surgical Cap, Surgical Mask, Sterile Gloves and Chlorhexidine Sedation Given During Procedure Sedation Given (Indicate Dose Given): Versed IV (1mg/mL) Dose:: 2mL Patient Mental Status Patient Mental Status: Awake Nerve Block 1st Nerve Block: Laterality: Right Block Type: Interscalene Ultrasound Image Saved?: Yes Needle / Catheter Used: 100mm SonoPlex II Local Anesthetic Bolus (Indicate Dose Given): Lidocaine used for local infiltration of skin, Bupivacaine 0.5% Dose:: 10mL and Exparel Dose:: 10mL Additives (Indicate Dose Given): None Ultrasound: Sterile probe cover and gel used Nerve Stimulator: Not Used Paresthesia: Right Paresthesia Duration: Transient Procedure Tolerated: No Complications and Patient tolerated well Procedure Outcome: Successful Performed By: Damián Sinha Supervised By: Марина Malave
--- NOTE | 2022-08-05 12:02 | W.PM.DSUDISC ---
Date of service: 08/05/22 Time of Service: 15:00 Discharge Plan Disposition Patient Disposition: Home Discharge Details Attending Provider: Ozzy Winston Home Meds and New Rx's Prescriptions: New naproxen 250 mg tablet 250 - 500 mg PO BID PRNQty: 40 0RF Rx Instructions: take with a meal aspirin 81 mg tablet,delayed release (DR/EC) 81 mg PO DAILY 7 Days Qty: 7 0RF oxycodone 5 mg tablet 5 - 10 mg PO Q4H MDD 30 mg PRN (Reason: moderate to severe pain) Qty: 18 0RF Continued bupropion HCl 150 mg tablet extended release 24 hr 150 mg PO BID meclizine 25 mg tablet 25 mg PO TID PRN (Reason: dizziness) Qty: 10 0RF Discharge Instructions Additional Instructions: Surgery: Right shoulder revision arthroscopy with extensive debridement (including synovial biopsy and removal of prior permanent suture material), biceps tenodesis, rotator cuff repair (subsapularis), and subacromial decompression. Activity: For 6 weeks, you should keep your arm at your side in a neutral position at all times except for physical therapy. Do not try to lift or raise your arm using your own muscles. You should use the sling whenever you are out of the house. You may have to adjust the abduction pillow or remove it for comfort. At home it is best to remove the sling and rest the arm on a pillow at your side or support the operative side with your other hand. You may allow the arm to dangle at your side. A physical therapy prescription will be sent electronically to begin in about 3 weeks. Prescriptions: Aspirin 81 mg take 1 daily to prevent a blood clot for 7 days Naproxen 250 mg take 1-2 every 12 hours with a meal as needed for moderate pain Oxycodone 5 mg take 1-2 every 4-6 hours as needed for severe pain You may use pgwk-[id number] Tylenol (acetaminophen) as needed for mild pain. These pain medications may be taken all at once or in different combinations as needed. Also, recommend Colace (docusate) as a stool softener as surgery and pain medicine cause constipation. You may try oygp-xnj-dvjanja diphenhydramine (Benadryl) 25-50 mg nightly as a sleep aid Dressings: Remove shoulder bandage after 3 days. Leave the sticky Steri-Strips in place until they fall off or remove them after you shower. Cover the incisions with Band-Aids or leave them open to air. You may shower after 5 days. Follow-up: 10-[address] Winston You may take off the leg compression stockings this evening at home. You may also leave them on a few days longer if you have a history of leg swelling or edema. Let us know right away if you develop any redness, drainage, fevers, chest pain, or trouble breathing. Do not drink alcohol or drive for at least 24 hours after anesthesia. Please call the office during business hours with any questions or concerns. DS: Diagnosis Discharge Diagnosis (1) Superior labrum owalailn-st-gtxbibtht (SLAP) tear of right shoulder: Status: Acute
--- NOTE | 2022-08-05 12:03 | W.PM.OP ---
Date of service: 08/05/22 Time of Service: 13:30 Operative Note Operative Note DATE OF PROCEDURE: 08/05/22 PRE-OP DIAGNOSIS: Right: 1. Failed SLAP repair 2. LHB tendinopathy 3. Bursitis POST-OP DIAGNOSIS: same Right: 1. Failed SLAP repair 2. LHB tendinopathy 3. Bursitis 4. Partial subscapularis rotator cuff tear PROCEDURE: Right 1. Rotator cuff repair, CPT# 36748. This involved suture repair of the subscapularis. 2. Arthroscopic biceps tenodesis, CPT# 65151. This involved arthroscopically suturing and reattaching the long head of the biceps tendon to the proximal humerus at the superior margin of the bicipital groove with a screw at the correct tension. 3. Extensive debridement, CPT# 00604. This involved using arthroscopic hand instruments, power instruments, and radiofrequency instruments to release the long head of the biceps tendon and debride areas of failed SLAP repair, anterior, superior, and posterior labral tearing, remove permanent suture material from the 4 prior labral repair sites, debride anterior rotator interval synovitis, and obtain synovial biopsies for culture from multiple sites containing inflamed capsular and torn labral material working within the glenohumeral joint anteriorly, superiorly and posteriorly. 4. Subacromial decompression with minimal acromioplasty, CPT# 88598. This involved using arthroscopic power instruments and a radiofrequency wand to complete a bursectomy and smooth the undersurface of the acromion. The veterinary assistant technician was medically required in order to help assist in techniques above, which require positioning the arm, holding the arthroscope, and manipulating multiple instruments and sutures at the same time. This cannot be done without the help of an experienced veterinary assistant technician. SURGEON: Ozzy Winston RECORDS SECTION SUPERVISOR: Javier Chambers ANESTHESIA TYPE: General LMA/ETT and Primary Nerve Block Refer to Anesthesia Record ESTIMATED BLOOD LOSS: 10 PATHOLOGY: none sent COMPLICATIONS: None Patient was transported to: PACU Patient's condition: stable Implants: Arthrex: 4.75mm SwiveLocks x 1 Indications: The patient was diagnosed with the above conditions and appropriately indicated for surgical intervention. Please see complete medical record for details. Findings: Exam under anesthesia: Full range of motion, no instability Glenohumeral joint: Impressive anterior rotator interval synovitis, obviously failed SLAP repair, healed anterior labral repair however significant anterior labral fraying, and loose knotless suture material at the anterior and superior suture anchors. No prominent or loose suture anchors (probably completely resolved). Intact articular rotator cuff. Mild upper bicipital groove chondromalacia. Moderate anterior central glenoid chondromalacia. Lateral upper margin subscapularis moderately sized intrasubstance degeneration tearing with only minimal disruption at the uppermost fibers lesser tuberosity insertion. Subacromial space: Mild bursitis. No significant undersurface acromial bone spur. No significant bursal rotator cuff tear. Procedure Description: In the operating room, general anesthesia was induced. Bilateral shoulders were examined. The patient was positioned in the beachchair position. All bony prominences were well-padded. Preoperative antibiotics were held pending cultures. The shoulder was prepped and draped in the usual sterile fashion. The correct patient, procedure, and side of the procedure were all verified prior to incision. Starting through the posterior portal a standard complete diagnostic arthroscopy was performed of the glenohumeral joint including inspection of the long head of the biceps, anterior and superior labrum, subscapularis tendon, supraspinatus and infraspinatus tendons, and axillary recess. The glenoid and humeral head cartilage as well as the posterior labrum were inspected from an anterior viewing portal. Significant findings and interventions noted above. Of note the prior SLAP repair had obviously chronically failed. The anterior labral repair was largely intact although the anterior superior and posterior superior labrum was abnormal. There was significant labral fraying and tearing engaging into the glenohumeral joint. Multiple tissue samples were obtained from labral frayed material, rotator interval and posterior synovitis, and permanent suture material all divided into 2 separate specimen cups and sent to the lab. Preoperative antibiotics were now administered. The shoulder gave the appearance of chronic mechanical failure as a cause of pain. It did not overtly appear as indolent infection as the cause. The intra-articular segment the biceps tendon was relatively spared from inflammation and the SLAP tear did not continue into the biceps tendon so the decision was made to proceed with arthroscopic biceps tenodesis. An all-arthroscopic suprapectoral biceps tenodesis was performed through an anterior portal using a Loop N Tack method with a SutureTape FiberLink cinched around and through the tendon. The biceps was tenotomized from the labrum and fixated with a suture anchor at the superior margin of the bicipital groove. The knotless repair suture from the anchor was then passed around the secured stump of the biceps and back through the anchor mechanism augmenting the repair. The biceps tendon was stable through testing and appropriately tensioned and located at the superior aspect of the bicipital groove. The superior lateral aspect of the subscapularis had moderate tissue degeneration fraying and the probe could readily enter the friable tissue at this area. The lesser tuberosity was not really exposed so in order to avoid additional pain and stiffness loss of motion instead of repairing this poor quality tissue to the lesser tuberosity, the decision was made to proceed with suture?only cerclage repair. A suture tape was then shuttled about the torn tendon using a BirdBeak. An [facility] arthroscopic knot was then used to secure this repair taking care to direct the knot anteriorly. There was good reapproximation and closure of the subscapularis defect. There was no displacement of the subscapularis from the lesser tuberosity and the repair was stable through external rotation without limiting motion. Care was taken to then optimize resection of the anterior superior and posterior superior labrum and anterior synovitis now that the biceps was out of the way, with all inflamed and chronically abnormal tissue removed as best possible with the mechanical shaver and radiofrequency ablator. Starting through the posterior portal, the arthroscope was directed into the subacromial space. A lateral 50 yard line lateral portal was omitted. The anterior portal was redirected into the subacromial space. A combination of power instruments and a radiofrequency ablator were used to debride bursitis anteriorly, posteriorly, and laterally as well as expose and abrade and smooth bone minimal spurring on the undersurface of the acromion. The coracoacromial ligament was minimally released. The bursectomy was completed viewing laterally and working from posteriorly and the rotator cuff was thoroughly inspected with findings noted above. The shoulder was drained of arthroscopic fluid. All portal sites were copiously irrigated. These incisions were closed using 3-0 Monocryl in a buried fashion and then covered with Mastisol, Steri-Strips, Xeroform, dry gauze, and ABDs. The dressings were covered and secured with Medipore tape. The operative extremity was placed into a sling for immobilization. The patient awoke from anesthesia without complication and was transferred to the recovery room in a stable condition.
[2022-08-05] MEDS: ceFAZolin 2 GM/50 ML BAG IVPB (13:00)
[2022-08-05] MEDS: EPINEPHrine 30 MG/30 ML VIAL (14:15)
--- NOTE | 2022-08-06 08:09 | W.ANESPOSTOP ---
Postoperative Evaluation Date, Time and Location Date Performed: 08/05/22 Time Performed: 16:00 Patient Location: Day Surgery Unit Vital Signs Most Recent Imported Vital Signs: Most Recent Vital Signs Temp Pulse Resp BP Pulse Ox 36.6 C 85 17 109/84 94 08/05/22 15:20 08/05/22 15:20 08/05/22 15:20 08/05/22 15:20 08/05/22 15:20 Pain Score Most Recent Pain Score: Most Recent Pain Score Pain Level 0 08/05/22 15:20 Assessment Mental Status: Awake (Alert & Oriented to Patient Baseline) Airway and Respiratory Function: Patent airway with normal (patient baseline) respiratory exam Cardiovascular Function: Hemodynamically Stable Hydration Status: Adequately Hydrated Nausea & Vomiting: No Nausea or Vomiting Pain: Pt. Denies Any Pain Peripheral Nerve Block: Regional nerve block not resolved at time of post operative discharge
== END 2022-08-05 15:50 | disposition home or self-care (01) ==
PROVIDERS: Visit Provider Student in an Organized Health Care Education/Training Program
PROC: (CPT 29827; principal; 2022-08-05 12:30)
DX: S43.431A Superior glenoid labrum lesion of right shoulder, initial encounter (principal); M75.21 Bicipital tendinitis, right shoulder; M75.51 Bursitis of right shoulder; M75.111 Incomplete rotator cuff tear or rupture of right shoulder, not specified as traumatic; X58.XXXA Exposure to other specified factors, initial encounter
CPT/HCPCS: 29827; 29828; 29826; 29823; 76942; 81025; 87070; 87075; 87205; J0690; J1100; J2250; J2370; J2405; J2704

== ENCOUNTER 2022-09-06 18:26 | Outpatient (REF) | payer BC, SELFPAY ==
[2022-09-06 21:56] LABS: HCT 40.6 % (36.0-46.0); HGB 13.9 g/dL (11.2-15.7); MCH 31.6 pg (27.0-33.0); MCHC 34.2 % (32.0-36.0); MCV 92 fL (80-95); Platelet Count 364 10^3/uL (130-400); RDW 12.1 % (11.7-14.6); RDW-SD 41.7 fL; WBC 10.08 10^3/uL (4.4-10.8)
[2022-09-06 22:35] LABS: D-Dimer 179 ng/mlFEU (<500)
[2022-09-07 12:03] LABS: Abs Immature Grans 0.04 10^3/uL (0.0-0.06); Absolute Basophil Count 0.05 10^3/uL (0.0-0.2); Absolute Eosinophil Count 0.12 10^3/uL (0.0-0.7); Absolute Lymphocyte Count 2.55 10^3/uL (1.2-3.4); Absolute Monocyte Count 0.68 10^3/uL (0.1-0.8); Absolute Neutrophil Count 6.59 10^3/uL (1.2-6.7); Basophils % 0.5; Eosinophils % 1.2; Immature Grans % 0.4; Lymphocytes % 25.4; Monocytes % 6.8; Neutrophils % 65.7
== END 2022-09-06 18:27 | disposition home or self-care (01) ==
LOC: LBN 18:26
PROVIDERS: Visit Provider Nurse Practitioner Family
DX: M79.604 Pain in right leg (principal)
CPT/HCPCS: 85027; 85007; 85379

== ENCOUNTER 2022-12-16 13:42 | Outpatient (REF) | payer BC, SELFPAY ==
[2022-12-17 15:00] LABS: Chlamydia Result Negative (Negative); GC Result Negative (Negative)
== END 2022-12-16 13:43 | disposition home or self-care (01) ==
LOC: LBN 13:42
PROVIDERS: Visit Provider Advanced Practice Midwife
DX: N89.8 Other specified noninflammatory disorders of vagina; Z11.3 Encounter for screening for infections with a predominantly sexual mode of transmission; N94.89 Other specified conditions associated with female genital organs and menstrual cycle; O09.291 Supervision of pregnancy with other poor reproductive or obstetric history, first trimester; Z3A.08 8 weeks gestation of pregnancy
CPT/HCPCS: 87077; 87491; 87591; 87086; 87186; 87480; 87510; 87660

== ENCOUNTER 2022-12-23 04:55 | Outpatient (CLI) | payer BC, SELFPAY ==
[2022-12-23 15:23] LABS: Panorama Kit Sent via Fed Ex
[2022-12-23 15:51] LABS: Abs Immature Grans 0.06 10^3/uL (0.0-0.06); Absolute Basophil Count 0.02 10^3/uL (0.0-0.2); Absolute Eosinophil Count 0.04 10^3/uL (0.0-0.7); Absolute Lymphocyte Count 2.14 10^3/uL (1.2-3.4); Absolute Monocyte Count 0.45 10^3/uL (0.1-0.8); Absolute Neutrophil Count 7.89 10^3/uL (1.2-6.7); Basophils % 0.2; Eosinophils % 0.4; HCT 38.6 % (36.0-46.0); HGB 13.1 g/dL (11.2-15.7); Immature Grans % 0.6; Lymphocytes % 20.2; MCH 31.7 pg (27.0-33.0); MCHC 33.9 % (32.0-36.0); MCV 94 fL (80-95); Monocytes % 4.2; Neutrophils % 74.4; Platelet Count 297 10^3/uL (130-400); RBC 4.13 10^6/uL (3.93-5.22); RDW 12.6 % (11.7-14.6); RDW-SD 43.3 fL
[2022-12-23 16:49] LABS: Glucose,1 Hr (Glucola) 138 mg/dL (80-140)
[2022-12-23 17:23] LABS: TSH (W/Ref FT4) 1.52 uIU/mL (0.36-3.74)
[2022-12-25 10:47] LABS: HIV-1/2 Ag & Ab Screen Negative (Negative)
[2022-12-27 09:08] LABS: Hepatitis B Surface Ag Negative (Negative)
[2022-12-27 09:55] LABS: Hepatitis C Ab w Rflx HCV PCR Negative (Negative)
[2022-12-27 10:51] LABS: Varicella IgG Antibody Positive (See Note)
[2022-12-27 10:56] LABS: Rubella IgG Ab (UVM) Positive (See Note)
[2022-12-27 16:17] LABS: Syphilis IgG w/Reflex Nonreactive (Nonreactive)
== END 2022-12-23 04:56 | disposition home or self-care (01) ==
PROVIDERS: Visit Provider Advanced Practice Midwife
DX: Z34.81 Encounter for supervision of other normal pregnancy, first trimester; Z3A.00 Weeks of gestation of pregnancy not specified
CPT/HCPCS: 82950; 86787; 86803; 86850; 86900; 86901; 87340; 87389; 84443; 85025; 86762; 86780

== ENCOUNTER 2022-12-23 21:37 | Outpatient (REF) | payer BC, SELFPAY ==
[2022-12-23 18:34] LABS: *AMPHETAMINES SCREEN URINE Negative (Negative); *BARBITURATES SCREEN URINE Negative (Negative); *BENZODIAZEPINES SCREEN URINE Negative (Negative); Cannabinoids THC Negative (Negative); Cocaine Screen,Urine Negative (Negative); METHADONE URINE SCREEN Negative (Negative); OPIATES URINE SCREEN Negative (Negative)
[2022-12-23 18:35] LABS: Tricyclic Antidepressants Negative (Negative)
[2022-12-30 05:59] LABS: Buprenorphine Negative ng/mL (Cutoff: 5.0)
== END 2022-12-23 21:38 | disposition home or self-care (01) ==
LOC: LBN 21:37
PROVIDERS: Visit Provider Advanced Practice Midwife
DX: Z34.91 Encounter for supervision of normal pregnancy, unspecified, first trimester
CPT/HCPCS: 80307; 80348; 87086

== ENCOUNTER 2022-12-28 12:34 | Outpatient (CLI) | payer BC, SELFPAY ==
--- NOTE | 2022-12-28 12:30 | RT.EKG_ITS ---
APPROVED REPORT Exam: Resting ECG Reason for Exam: audible maternal caridac arrythmia Patient Location: O HR:74 bpm ECG Measurements Heart Rate 74 AXIS OR 127 P 50 QRSd 86 QRS 66 QT 394 T 59 QTc 438 Conclusion Sinus rhythm...normal P axis, V-rate 50- 99 Baseline wander in lead(s) V1 Normal Electrocardiogram
== END 2022-12-28 12:35 | disposition home or self-care (01) ==
PROVIDERS: Visit Provider Advanced Practice Midwife
DX: I49.9 Cardiac arrhythmia, unspecified (principal); Z34.91 Encounter for supervision of normal pregnancy, unspecified, first trimester
CPT/HCPCS: 93005; 93010

== ENCOUNTER 2023-01-11 08:13 | Outpatient (CLI) | payer BC, SELFPAY ==
--- NOTE | 2023-01-11 08:00 | RT.EKG_ITS ---
APPROVED REPORT Exam: Resting ECG Reason for Exam: atrial arrythmia Patient Location: O HR:88 bpm ECG Measurements Heart Rate 88 AXIS CO 128 P 50 QRSd 101 QRS 35 QT 344 T 37 QTc 417 Conclusion Sinus rhythm...normal P axis, V-rate 50- 99 Baseline wander in lead(s) V6 Normal Electrocardiogram
== END 2023-01-11 08:14 | disposition home or self-care (01) ==
LOC: DI.CARD 08:14
PROVIDERS: Visit Provider Internal Medicine Cardiovascular Disease
DX: I49.9 Cardiac arrhythmia, unspecified (principal)
CPT/HCPCS: 93010

== ENCOUNTER 2023-03-30 08:48 | Emergency (ER) | payer OTHER, SELFPAY ==
[2023-03-30] VITALS (52 sets, daily range): BP systolic 81–127; BP diastolic 52–89; PULSE 87–115; RESP 11–32; TEMP 36.7; O2SAT 95–99
--- NOTE | 2023-03-30 08:45 | RT.EKG_ITS ---
APPROVED REPORT Exam: Resting ECG Reason for Exam: sob, chest pain Patient Location: E HR:109 bpm ECG Measurements Heart Rate 109 AXIS LA 146 P 22 QRSd 85 QRS 27 QT 330 T 16 QTc 444 Conclusion Sinus tachycardia Normal axis no concerning st changes
--- NOTE | 2023-03-30 09:10 | W.ED.GENAD ---
HPI General Stated Complaint: Chest Pain YASEMIN: 2 Date/Time Provider Initiated Documentation: 03/30/23 09:03. HPI Narrative: 32 year-old female, G4PAL2, 6 months gestation presents to ED today by EMS with a chief complaint of sudden onset chest pain, feeling flushed, dizziness, shortness of breath with onset around 0745 this morning while driving, non-exertional. Patient has a history of panic disorder. Quality described as chest heaviness, not being able to take a full breath, states it is much different than her normal panic attacks and denies recent stressors, no radiation to paleness, syncope, recent illness, abdominal pain, nausea/vomiting. Severity is described as 7/10 at onset, less so here in ED, resolved over about 90 minutes. Palliating factors include nothing specific attempted. Provoking factors include nothing specific. 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 Patient not anticoagulated. Related Data Home Medications Medication Instructions Recorded Confirmed vits [id number] fum 1 tab PO DAILY 11/10/22 03/30/23 28 mg iron-folic acid 800 mcg tablet (Classic ) doxylamine succinate 25 mg tablet 25 mg PO QHS PRN 12/02/22 03/30/23 (Unisom (doxylamine)) ondansetron 4 mg disintegrating 4 mg PO Q8H #30 tabs 12/16/22 03/30/23 tablet aspirin 81 mg tablet,delayed 81 mg PO DAILY #60 tabs 12/23/22 03/30/23 release blood sugar diagnostic (FreeStyle #100 ea 12/24/22 03/30/23 Lite Strips) lancets 28 gauge (FreeStyle #100 ea 12/24/22 03/30/23 Lancets) pyridoxine (vitamin B6) 25 mg 25 mg PO DAILY PRN 03/24/23 03/30/23 tablet Previous Rx's Medication Instructions Recorded ondansetron 4 mg disintegrating 4 mg PO Q8H #30 tabs 12/16/22 tablet aspirin 81 mg tablet,delayed 81 mg PO DAILY #60 tabs 12/23/22 release blood sugar diagnostic (FreeStyle #100 ea 12/24/22 Lite Strips) lancets 28 gauge (FreeStyle #100 ea 12/24/22 Lancets) Allergies Allergy/AdvReac Type Severity Reaction Status Date / Time Sulfa (Sulfonamide AdvReac Intermediate vomiting Verified 03/30/23 09:03 Antibiotics) Review of Systems All systems reviewed & are unremarkable except as noted in HPI and below PFSH All Active Problems (Updated 03/30/23 @ 14:49 by LEVI Hercules) Elevated troponin (Acute) Chest pain during (Acute) Low lying placenta nos or without hemorrhage, second trimester (Acute) Arrhythmia (Acute) Right lower quadrant abdominal pain (Acute) (Acute) PCOS (polycystic ovarian syndrome) (Acute) Treated with metformin in the past Depression (Chronic) Headache (Acute) Injury of pelvis (Acute) injury in the , surgery recommended after childbearing Dental root implant present (Acute) Medical History Vaginal discomfort Right wrist pain Rotator cuff tear, right Bursitis of right shoulder Tendonitis of long head of biceps brachii of right shoulder Miscarriage Vaginal delivery Elevated glucose level Superior labrum [id number] (SLAP) tear of right shoulder repaired 2014 Vaginal discharge during in third trimester Vaginal leukorrhea Personal history of female infertility Breast pain, left Miscarriage, threatened, early Surgical History History of shoulder surgery Rt SLAP repair History of cholecystectomy Family History Mother Diabetes type 2 Father Liver disease related to exposure to toxin while in [place] Paternal Grandfather Colon cancer also Paternal GGM and GGF Social History Smoking/Tobacco Use Status: Current every day Tobacco Type: e-cigarettes Tobacco: How many years used: 12 Smoking risk assessment performed?: Yes Alcohol Intake: current Alcohol Intake frequency: holidays/special occasions only Drug use: Rarely Substance use type: marijuana Housing: house Current gender identity: female Do you feel safe at home: Yes Do you feel safe in your relationship?: Yes History History 4 Para 2 Hx # Term Pregnancies 2 Multiple births 0 Hx # Pregnancies 0 Ectopic pregnancies 0 AB induced 0 Hx Number of Living Children 2 AB spontaneous 1 Past Pregnancies Del. Date GA/Weeks # Preg Succ Route Wgt Sex Labor Lgth Anesthesia Location Prov Complic 12/31/16 41 No vaginal 3033.399 g Male 27 hrs [facility] 10/15/20 37 No vaginal 3515.341 g Male 19 regional [facility], JANETH Delivery Date: 12/31/16 Last Updated by: Cecilia Pinto IOL for low fluid & postdates, arceo cath (hated it), amnioinfusion for decels, epidural, quick 2nd stage. Carlos Delivery Date: 10/15/20 Last Updated by: Cecilia Pinto IOL for gHTN & GDM, Joseph Sanderson Exam Narrative Exam Narrative: GENERAL APPEARANCE: Well-nourished, non-toxic, awake and alert, atraumatic, no acute distress. SKIN: Warm, pink, dry, intact, without rashes/lesions/ulcerations. HEAD: Normocephalic, atraumatic, normal hair distribution for gender/age. EYES: Pupils PERRLA, EOMs intact without nystagmus, normal conjunctiva, no exudates on lids/lashes. ENT: Nares patent, no circumoral cyanosis, no facial swelling NECK: Supple, trachea midline, painless cervical ROM. LUNGS/CHEST: Lungs CTA bilaterally- no rhonchi/rales/wheezes diffusely, non-labored respirations, normal A/P diameter, symmetrical expansion, no chest wall deformity HEART (CV/PV): Regular rate and rhythm without murmur, no peripheral edema, no JVD, no carotid bruit. ABDOMEN: Soft, non-distended, no guarding, no tenderness. MSK: Normal ROM, no swelling/deformity to bilateral UEs or LEs, moving all extremities without weakness, no cyanosis, spine midline without tenderness, normal curvature. NEURO: Mental Status AAOx4 - alert to person, place, time, events No facial droop, no forehead involvement. Motor: No focal weakness - strength 5/5 in bilateral UEs and LEs, proximal and distal, symmetric. Sensory: sensation intact to light touch globally. Gait normal: patient ambulated without ataxia into ED room. PSYCH: euthymic, cooperative, pleasant, appropriate speech Course Vital Signs Vital signs: Vital Signs Temperature 36.7 C 03/30/23 08:50 Pulse 111 H 03/30/23 08:50 Respiratory Rate 14 03/30/23 08:50 Blood Pressure 115/83 03/30/23 08:50 Pulse Oximetry 99 03/30/23 08:50 Temperature 36.7 C 03/30/23 08:50 Temperature Source Skin 03/30/23 08:50 Pulse 111 H 03/30/23 08:50 Respiratory Rate 16 03/30/23 09:00 Respiratory Effort Short of Breath 03/30/23 09:00 Respiratory Depth Normal 03/30/23 09:00 Respiratory Pattern Normal 03/30/23 09:00 Blood Pressure 115/83 03/30/23 08:50 Pulse Oximetry 99 03/30/23 08:50 Oxygen Delivery Method Room Air 03/30/23 08:50 Oxygen Flow Rate 0 03/30/23 08:50 Pain Level 5 03/30/23 08:50 Medical Decision Making This dictation utilizes [id number] dictation software and may contain unedited grammatical errors. 32 y/o F, 6-months , presents to ED today with a chief complaint of chest pain, onset this morning while driving- hx of panic disorder, feels different like heavy crushing chest pain unable to catch her breath with dizziness and feeling hot or flushed. 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 Has been healthy and physically active in adulthood in the . Patient denies abnormal vaginal complaints, no abdominal pain, no discharge/bleeding, do not suspect pathology. Patients' medical history: hx of cholecystectomy, orthopaedic complaints, vaginal complaints. Family and social history: noncontributory. Pertinent exam findings / vital signs include benign cardiopulmonary exam, no carotid bruit, benign abdomen, neuro intact, nontoxic vitals, mild tachycardia. Differential / pathologies of concern include ACS, NSTEMI, SCAD, Coronary Vasospasm, Anxiety/panic Disorder. Diagnostic studies of: -CBC, CMP, Trop I (+delta), BNP, EKG (w/ rpt.), D-dimer. -CBC benign -CMP shows no major electrolyte abnormality -D-dimer neg, unlikely PE -BNP neg -EKGs without dynamic changes, sinus tach ~110bpm, normal P axis, no ST changes, poor R wave progression, normal QTc -initial troponin <50, repeat 89, third <50 Interventions of: -324mg ASA, low-dose labetalol per [facility] consult -Consult [facility] Cardiology -ECHOcardiogram, pending at time of sign-out -trending troponins. ED Course/Assessment/Plan: Otherwise healthy young female 32 years old 6 months with her third child presents with sudden onset of severe chest heaviness while driving today at around 745, pain lasting 90 to 120 minutes to a lesser extent urgency department, initial troponin was negative, repeat troponin was elevated to 89, 2 EKGs are unremarkable and without dynamic changes. D-dimer negative BNP negative. Concern for coronary vasospasm versus scad discussed with [facility] junior media buyer's and cardiac OB, accepted for transfer tomorrow by Dr. Arizmendi at 1430, will perform echo here but will not be read I will send the echo to [facility]. The patient is on board with remaining in and [facility] ED patient until she can be transferred to [facility] for possible advanced cardiac imaging versus cath, will plan to trend her troponins and start on a lower dose of labetalol per [facility] consult. If her troponin values are doing to trend up or she experiences more unprovoked bouts of chest pain [facility] advises to reconsult with them as they may need to transfer her more urgently. Findings not consistent with STEMI, PE. Disposition of Chest Pain During , Elevated Troponin. Patient verbalized understanding of the plan and return to ED criteria and engaged in shared decision making. Medical Records Medical records reviewed: Yes I reviewed the patient's medical records. Lab Data Lab results reviewed: Yes I reviewed the patient's lab results. Labs: Laboratory Tests Range/Units 03/30/23 03/30/23 08:55 11:58 WBC (4.4-10.8) 10^3/uL 9.08 RBC (3.93-5.22) 10^6/uL 4.18 Hgb (11.2-15.7) g/dL 13.3 Hct (36.0-46.0) % 39.3 MCV (80-95) fL 94 MCH (27.0-33.0) pg 31.8 MCHC (32.0-36.0) % 33.8 RDW (11.7-14.6) % 13.6 Plt Count (130-400) 10^3/uL 262 MPV (8.0-11.0) fL 8.9 Immature Gran % 2.0 Neutrophils % 75.3 Lymphocytes % 16.6 Monocytes % 5.2 Eosinophils % 0.3 Basophils % 0.6 Nucleated RBC % (0.0-0.3) % 0.0 Absolute Neutrophils (1.2-6.7) 10^3/uL 6.84 H Absolute Lymphocytes (1.2-3.4) 10^3/uL 1.51 Absolute Monocytes (0.1-0.8) 10^3/uL 0.47 Absolute Eosinophils (0.0-0.7) 10^3/uL 0.03 Absolute Basophils (0.0-0.2) 10^3/uL 0.05 D-Dimer (<500) ng/mlFEU 456 Sodium (136-145) mmol/L 139 Potassium (3.5-5.1) mmol/L 3.5 Chloride (98-107) mmol/L 107 Carbon Dioxide (21.0-32.0) mmol/L 20.0 L Anion Gap (3-11) mmol/L 12.0 H BUN (7-18) mg/dL 6 L Creatinine (0.55-1.02) mg/dL 0.6 Est GFR (CKD-EPI 2020) (mL/min/1.73m2) 121.47 Glucose (74-106) mg/dL 164 H Calcium (8.5-10.1) mg/dL 8.9 Magnesium (1.8-2.4) mg/dL 1.7 L Total Bilirubin (0.2-1.0) mg/dL 0.3 AST (15-37) U/L 13 L ALT (14-59) U/L 18 Alkaline Phosphatase (46-116) U/L 72 Troponin I (<or=60) ng/L < 50 89 H* NT-Pro-B Natriuret Pep (<300) pg/mL 88 Total Protein (6.4-8.2) g/dL 6.9 Albumin (3.4-5.0) g/dL 3.0 L Lipase (16-77) U/L 30 TSH (0.36-3.74) uIU/mL 2.04 Quality:SDPR Health Related Social Needs: No Data to Display Sign Out Sign Out Data: Sign Out Comment: Accepted [facility] Cardiology - ?SCAD vs coronary vasospasm, capacity tomorrow. ECHO performed here today. Last updated by Chaitanya Salinas PA at 03/30/23 15:48 Discharge Plan Disposition Patient Disposition: Transfer-Acute Inpatient Care Specific Acute Inpt Facility: [facility] Condition: Stable Discharge Details Clinical Impression: Chest pain during , Elevated troponin Primary Care Provider: Unknown,Unknown ED Provider: Chaitanya Salinas Home Meds and New Rx's Prescriptions: No Action Classic 28 mg iron- 800 mcg tablet 1 tab PO DAILY aspirin 81 mg tablet,delayed release (DR/EC) 81 mg PO DAILY Qty: 60 4RF Rx Instructions: 1 tab daily alternating with 2 tabs every other day Unisom (doxylamine) 25 mg tablet 25 mg PO QHS PRN pyridoxine (vitamin B6) 25 mg tablet 25 mg PO DAILY PRN ondansetron 4 mg tablet,disintegrating 4 mg PO Q8H Qty: 30 5RF (DME) FreeStyle Lite Strips Strip See Rx Instructions .ROUTE .MEDSUPPLY Qty: 100 3RF Rx Instructions: Testing QID (DME) lancets [FreeStyle Lancets] 28 gauge misc See Rx Instructions .ROUTE .MEDSUPPLY Qty: 100 3RF Rx Instructions: Testing QID
[2023-03-30 09:30] LABS: Abs Immature Grans 0.18 10^3/uL (0.0-0.06); Absolute Basophil Count 0.05 10^3/uL (0.0-0.2); Absolute Eosinophil Count 0.03 10^3/uL (0.0-0.7); Absolute Lymphocyte Count 1.51 10^3/uL (1.2-3.4); Absolute Monocyte Count 0.47 10^3/uL (0.1-0.8); Absolute Neutrophil Count 6.84 10^3/uL (1.2-6.7); Basophils % 0.6; Eosinophils % 0.3; HCT 39.3 % (36.0-46.0); HGB 13.3 g/dL (11.2-15.7); Lymphocytes % 16.6; MCH 31.8 pg (27.0-33.0); MCHC 33.8 % (32.0-36.0); MCV 94 fL (80-95); MPV 8.9 fL (8.0-11.0); Monocytes % 5.2; Neutrophils % 75.3; Platelet Count 262 10^3/uL (130-400); RBC 4.18 10^6/uL (3.93-5.22); RDW 13.6 % (11.7-14.6); RDW-SD 47.2 fL; WBC 9.08 10^3/uL (4.4-10.8)
[2023-03-30 10:01] LABS: ALT 18 U/L (14-59); AST 13 U/L (15-37); Alkaline Phosphatase 72 U/L (46-116); BUN 6 mg/dL (7-18); Bilirubin, Total 0.3 mg/dL (0.2-1.0); CREATININE 0.6 mg/dL (0.55-1.02); Calcium 8.9 mg/dL (8.5-10.1); Chloride 107 mmol/L (98-107); Estimated GFR 121.47 (mL/min/1.73m2); Glucose 164 mg/dL (74-106); Magnesium 1.7 mg/dL (1.8-2.4); NT-proBNP 88 pg/mL (<300); Potassium 3.5 mmol/L (3.5-5.1); Sodium 139 mmol/L (136-145); Total Protein 6.9 g/dL (6.4-8.2); Troponin I < 50 ng/L (<or=60)
[2023-03-30 10:05] LABS: D-Dimer 456 ng/mlFEU (<500); Lipase 30 U/L (16-77); TSH (W/Ref FT4) 2.04 uIU/mL (0.36-3.74)
[2023-03-30] MEDS: Normal Saline 1,000 ML 1000 ML IV (10:58)
--- NOTE | 2023-03-30 12:30 | RT.EKG_ITS ---
APPROVED REPORT Exam: Resting ECG Reason for Exam: repeat ekg Patient Location: E HR:102 bpm ECG Measurements Heart Rate 102 AXIS NM 175 P 26 QRSd 87 QRS 18 QT 343 T 13 QTc 447 Conclusion Sinus tachycardia normal axis no acute st segment changes
[2023-03-30 12:37] LABS: Troponin I 89 ng/L (<or=60)
[2023-03-30] MEDS: Aspirin 81 MG CHEW 324 MG CH (12:48)
--- NOTE | 2023-03-30 14:30 | DI.US_ITS ---
APPROVED REPORT EXAM: Comprehensive 2D, Doppler, and color-flow Echocardiogram Patient Location: ER Room/Bed: 6 Fund Director: Mina Bermudez RDCS (AE) Indications: possible ACS in [facility] Conclusion 1. Normal chamber sizes. 2. Normal valves. No significant regurgitation or stenosis. 3. Normal LV function,EF 60%. No wall motion abnormality. Normal RV. 4. No intracardiac shunt. 5. No pericardial effusion. Wall motion Left Ventricle The left ventricle is normal size. The left ventricular systolic function is normal. The left ventric ular ejection fraction is within the normal range. There is normal left ventricular wall thickness. T here is normal LV segmental wall motion. There is no ventricular septal defect visualized. LVEF is 60 %. Right Ventricle The right ventricle is normal size. The right ventricular systolic function is normal. Atria The left atrium size is normal. The right atrium size is normal. The interatrial septum is intact wit h no evidence for an atrial septal defect. Aortic Valve The aortic valve is normal in structure. Aortic valve is trileaflet. There is no aortic valvular sten osis. No aortic regurgitation is present. Mitral Valve The mitral valve is normal in structure. No evidence of mitral valve stenosis. There is no mitral lay ve regurgitation noted. Tricuspid Valve The tricuspid valve is normal in structure. There is no tricuspid valve stenosis. Trace tricuspid reg urgitation. Unable to assess PA pressure. Pulmonic Valve The pulmonary valve is normal in structure. There is no pulmonic valvular stenosis. There is no pulmo gayle valvular regurgitation. Great Vessels The aortic root is normal in size. The ascending aorta is normal in size. Aortic arch is normal in ca liber. IVC is normal in size and collapses >50% with inspiration. Pericardium There is no pericardial effusion. 2D Dimensions IVSD d PLAX 0.74 cm F: 0.6-1.0 Ao Root d 3.29 cm F: 2.7 - 3.3 LVPW d PLAX 0.68 cm F: 0.6 - 1.0 Ao Asc Diam d 2.99 cm F: 2.3 - 3.1 LVID d PLAX 4.64 cm F: 3.8 - 5.2 LVDs 3.13 cm F: 2.2 - 3.5 LV EF Teichholz 60.7 % FS 32.41 % LV EDV (Teich) 99.2 mL LV ESV (Teich) 39.0 mL Stroke Vol Index (Teich) 29.83 M-Mode TAPSE 1.66 cm (M/F) >1.7 Auto EF LV EDV A4C 99.5 mL LV EDV A2C 123.5 mL LV EDV BP 111.7 mL LV ESV A4C 42.1 mL LV ESV A2C 49.3 mL LV ESV BP 46.9 mL LVEF(%) A4C 57.7 % LVEF(%) A2C 60.1 % LVEF(%) BP 58.0 % LV SV A4C 57.4 ml LV SV A2C 74.2 ml LV SV BP 64.7 ml LV CO A4C 5.5 L/min LV CO A2C 7.7 L/min LV CO BP 6.6 L/min HR A4C 95.75 BPM HR A2C 104.35 BPM LV EDV Index (BP) LA Volume LA Length A4C 4.5 cm LA Length A2C 2.9 cm LA Area A4C s 10.45 cm2 LA Area A2C s 7.35 cm2 LA Vol A4C A-L 20.62 mL LA Vol A2C A-L 15.92 mL LA Vol Biplane A-L 22.6 mL LA Vol/BSA A4C A-L LA Vol/BSA A2C A-L LA Vol/BSA BP A-L 11.2 mL/m2 LA Vol A4C MOD 18.1 mL LA Vol A2C MOD 14.6 mL LA Vol BP MOD 20.3 mL RA Volume RA Area A4C 9.4 cm2 RA ESV A4C (A-L) 19.5mL RA Vol/BSA A4C A-L RA Length A4C 3.9 cm RA ESV A4C (MOD) 18.9mL LV Diastology MV E' medial 0.129 (>0.07 m/s) MV E Vmax 0.96 (0.4-1.3 m/s) MV E/E' MED 7.48 (<14) MV A Vmax 1.05 (0.4-1.3 m/s) MV E' lateral 0.178 (>0.1 m/s) E/A Ratio 0.9 MV E/E' LAT 5.39 (<14) MV E' Average 0.153 m/s MV E/E'(average) 6.27 Aortic Valve AoV Vmax 1.50 m/s LVOT Vmax 1.25 m/s AoV Peak Grad 9.0 mmHg LVOT Peak Grad 6.2 mmHg AoV Area (Vmax) 2.02 cm2 LVOT VTI 0.194 m AoV VTI 0.258 m LVOT Mean Grad 3.1 mmHg AoV Mean Billy. 0.99 m/s LVOT SV 46.92 mL AoV Mean Grad 4.4 mmHg LVOT Diam s 1.75 cm AoV Area (VTI) 1.82 cm2 Velocity Ratio 0.83 Mitral Valve MV DT 208 (160-240 msec) Pulmonary Valve PV Vmax 1.20 (0.5-1.5 m/s) RVOT Vmax 0.83 m/s PV Peak Grad 5.8 mmHg RVOT Peak Gr. 2.8 mmHg PV Mean Billy 0.83 m/s RVOT VTI 0.122 m PV Mean Grad 3.1 mmHg RVOT Mean Gr. 1.4 mmHg
[2023-03-30 15:22] LABS: Troponin I < 50 ng/L (< or =60)
[2023-03-30] MEDS: Labetalol 100 MG TAB 50 MG PO (15:55)
--- NOTE | 2023-03-30 15:59 | W.EDPROG ---
Date of service: 03/30/23 Time of Service: 15:59 Medical Decision Making Care assumed from provider (LEVI Abdul) Please see their initial HPI, PE, and documentation. Discussed patient details and case and pending workup and disposition. Patient is hemodynamically stable, and alert and oriented. At the time of signout awaiting transfer to [facility] with OB cardiology pending tomorrow. Patient is a 32-year-old approximately 6 months female 3 para 2 who presented to the ER with sudden onset of shortness of breath and chest pain while driving. She did have a bumped troponin up to 89 which has since normalized to less than 50. She is currently getting 100 mg of labetalol p.o. [facility]ER at [facility] paged to discuss patient case and details to see about admission for observation pending transfer to [facility] tomorrow. 1610: Spoke with Dr. Urban she states there is no capacity for cardiac monitoring up stairs in [facility] named [facility]. She does not recommend monitoring at this time. 1640: Spoke with patient on her reevaluation she is still complaining of some chest heaviness and shortness of breath however no chest pain. Heart rate is 96 at this time. I did discuss risks and benefits of CT imaging at this time we decided to forego CT imaging to rule out PE however I did explain that if her chest pain or shortness of breath gets worse that that would be an option to rule that out she verbalized understanding. Vital signs and diet ordered. I did also discuss the plan of care with her. Will continue to observe will order every 4 hours troponins x 1 and prn chest pain. Patient's fourth troponin within normal limits, heart tones 140's. Diet ordered for patient, vital signs every 2 hours. Care to be signed out to oncoming provider Dr. Amelia Irwin pending transfer to [facility] tomorrow and further observation. Patient remained hemodynamically stable alert and oriented throughout the remainder of her stay. This text was generated using Dittitation system, please disregard any oddities of phrase or misspellings. Medical Records Medical records reviewed: Yes I reviewed the patient's medical records. Lab Data Lab results reviewed: Yes I reviewed the patient's lab results. Labs: Laboratory Tests Range/Units 01/10/24 01/10/24 01/10/24 08:55 11:58 14:54 WBC (4.4-10.8) 10^3/uL 9.08 RBC (3.93-5.22) 10^6/uL 4.18 Hgb (11.2-15.7) g/dL 13.3 Hct (36.0-46.0) % 39.3 MCV (80-95) fL 94 MCH (27.0-33.0) pg 31.8 MCHC (32.0-36.0) % 33.8 RDW (11.7-14.6) % 13.6 Plt Count (130-400) 10^3/uL 262 MPV (8.0-11.0) fL 8.9 Immature Gran % 2.0 Neutrophils % 75.3 Lymphocytes % 16.6 Monocytes % 5.2 Eosinophils % 0.3 Basophils % 0.6 Nucleated RBC % (0.0-0.3) % 0.0 Absolute Neutrophils (1.2-6.7) 10^3/uL 6.84 H Absolute Lymphocytes (1.2-3.4) 10^3/uL 1.51 Absolute Monocytes (0.1-0.8) 10^3/uL 0.47 Absolute Eosinophils (0.0-0.7) 10^3/uL 0.03 Absolute Basophils (0.0-0.2) 10^3/uL 0.05 D-Dimer (<500) ng/mlFEU 456 Sodium (136-145) mmol/L 139 Potassium (3.5-5.1) mmol/L 3.5 Chloride (98-107) mmol/L 107 Carbon Dioxide (21.0-32.0) mmol/L 20.0 L Anion Gap (3-11) mmol/L 12.0 H BUN (7-18) mg/dL 6 L Creatinine (0.55-1.02) mg/dL 0.6 Est GFR (CKD-EPI 2020) (mL/min/1.73m2) 121.47 Glucose (74-106) mg/dL 164 H Calcium (8.5-10.1) mg/dL 8.9 Magnesium (1.8-2.4) mg/dL 1.7 L Total Bilirubin (0.2-1.0) mg/dL 0.3 AST (15-37) U/L 13 L ALT (14-59) U/L 18 Alkaline Phosphatase (46-116) U/L 72 Troponin I (<or=60) ng/L < 50 89 H* < 50 NT-Pro-B Natriuret Pep (<300) pg/mL 88 Total Protein (6.4-8.2) g/dL 6.9 Albumin (3.4-5.0) g/dL 3.0 L Lipase (16-77) U/L 30 TSH (0.36-3.74) uIU/mL 2.04 Quality:SDOH Health Related Social Needs: No Data to Display Sign Out Sign Out Data: Sign Out Comment: Accepted [facility] Cardiology - ?SCAD vs coronary vasospasm, capacity tomorrow. ECHO performed here today. Last updated by Chaitanya Salinas PA at 03/30/23 15:48 Discharge Plan Disposition Patient Disposition: Transfer-Acute Inpatient Care Specific Acute Inpt Facility: [facility] Condition: Stable Discharge Details Clinical Impression: Chest pain during , Elevated troponin Primary Care Provider: Unknown,Unknown ED Provider: Dana Irwin Meds and New Rx's Prescriptions: No Action Classic 28 mg iron- 800 mcg tablet 1 tab PO DAILY aspirin 81 mg tablet,delayed release (DR/EC) 81 mg PO DAILY Qty: 60 4RF Rx Instructions: 1 tab daily alternating with 2 tabs every other day Unisom (doxylamine) 25 mg tablet 25 mg PO QHS PRN pyridoxine (vitamin B6) 25 mg tablet 25 mg PO DAILY PRN ondansetron 4 mg tablet,disintegrating 4 mg PO Q8H Qty: 30 5RF (DME) FreeStyle Lite Strips Strip See Rx Instructions .ROUTE .MEDSUPPLY Qty: 100 3RF Rx Instructions: Testing QID (DME) lancets [FreeStyle Lancets] 28 gauge misc See Rx Instructions .ROUTE .MEDSUPPLY Qty: 100 3RF Rx Instructions: Testing QID
[2023-03-30] MEDS: Normal Saline 1,000 ML 250 ML IV (21:01)
[2023-03-30 21:08] LABS: Troponin I < 50 ng/L (< or =60)
--- NOTE | 2023-03-30 23:41 | ED.PROG_ITS ---
Date of service: 03/30/23 Time of Service: 23:41 Medical Decision Making This patient was signed out to me. Please see previous notes for H&P and initial eval. In brief, 32yo 24w gestation with garcia presenting with acute chest pain and shortness of breath. Hypertensive, given labetolol with good effect. Found to have slight troponin elevation which downtrended to normal range. Normal FHTs. Accepted to [facility] ob/cards however no beds at this time, plan for transfer in the morning. Will board in the ED overnight with plan for q2 VS and telemetry monitoring. Overnight stable, normotensive as of 0430. Reassuring tele. She reported continued mild chest pain at the start of the shift, afterwards appeared to be sleepign comofortably. Plan to to sign out to oncoming physician at 0730, plan remains transfer to [facility] when bed available and transport. EMR downtime at 0500; any further events or changes in plan will be in paper record. Quality:[facility] Health Related Social Needs: No Data to Display Sign Out Sign Out Data: Sign Out Comment: Accepted [facility] Cardiology - ?SCAD vs coronary vasospasm, capacity tomorrow. ECHO performed here today. Last updated by Chaitanya Salinas PA at 03/30/23 15:48 Discharge Plan Disposition Patient Disposition: Transfer-Acute Inpatient Care Specific Acute Inpt Facility: [facility] Condition: Stable Discharge Details Clinical Impression: Chest pain during , Elevated troponin Primary Care Provider: Unknown,Unknown ED Provider: Dana Irwin Home Meds and New Rx's Prescriptions: No Action Classic 28 mg iron- 800 mcg tablet 1 tab PO DAILY aspirin 81 mg tablet,delayed release (DR/EC) 81 mg PO DAILY Qty: 60 4RF Rx Instructions: 1 tab daily alternating with 2 tabs every other day Unisom (doxylamine) 25 mg tablet 25 mg PO QHS PRN pyridoxine (vitamin B6) 25 mg tablet 25 mg PO DAILY PRN ondansetron 4 mg tablet,disintegrating 4 mg PO Q8H Qty: 30 5RF (DME) FreeStyle Lite Strips Strip See Rx Instructions .ROUTE .MEDSUPPLY Qty: 100 3RF Rx Instructions: Testing QID (DME) lancets [FreeStyle Lancets] 28 gauge misc See Rx Instructions .ROUTE .MEDSUPPLY Qty: 100 3RF Rx Instructions: Testing QID
[2023-03-31] VITALS (192 sets, daily range): BP systolic 103–109; BP diastolic 72–80; PULSE 81–122; RESP 12–35; TEMP 37.2; O2SAT 83–98
[2023-03-31] MEDS: Labetalol 100 MG TAB 50 MG PO (09:07)
--- NOTE | 2023-03-31 09:13 | W.EDPROG ---
Date of service: 03/31/23 Time of Service: 09:14 Medical Decision Making pt signed out to me pending transfer to [facility] for cardiology and obgyn given chest pain with minimally elevated troponins, stable overnight, currently stable and has no new complaints, no severe chest pain, awaiting call from [facility] about transfer. Quality:[facility] Health Related Social Needs: No Data to Display Sign Out Sign Out Data: Sign Out Comment: Accepted [facility] Cardiology - ?SCAD vs coronary vasospasm, capacity tomorrow. ECHO performed here today. Last updated by Chaitanya Salinas PA at 03/30/23 15:48 Sign Out Comment: 32yo F 24w garcia uncomplicated presented with acute chest pain and shortness of breath. Reassuring FHT. Dimer neg. Slightly increased trop (~70's-80's) which downtrended. Pain persists but is mild. Received labetalol for hypertension with good effect. Consulted with [facility] OB/cards, plan for transfer there but no beds overnight. Plan remains [facility] when bed and transport available. Last updated by Dana Irwin MD at 03/31/23 04:33 Discharge Plan Disposition Patient Disposition: Transfer-Acute Inpatient Care Specific Acute Inpt Facility: [facility] Condition: Stable Discharge Details Clinical Impression: Chest pain during , Elevated troponin Primary Care Provider: Unknown,Unknown ED Provider: Manish Lopez Home Meds and New Rx's Prescriptions: No Action Classic 28 mg iron- 800 mcg tablet 1 tab PO DAILY aspirin 81 mg tablet,delayed release (DR/EC) 81 mg PO DAILY Qty: 60 4RF Rx Instructions: 1 tab daily alternating with 2 tabs every other day Unisom (doxylamine) 25 mg tablet 25 mg PO QHS PRN pyridoxine (vitamin B6) 25 mg tablet 25 mg PO DAILY PRN ondansetron 4 mg tablet,disintegrating 4 mg PO Q8H Qty: 30 5RF (DME) FreeStyle Lite Strips Strip See Rx Instructions .ROUTE .MEDSUPPLY Qty: 100 3RF Rx Instructions: Testing QID (DME) lancets [FreeStyle Lancets] 28 gauge misc See Rx Instructions .ROUTE .MEDSUPPLY Qty: 100 3RF Rx Instructions: Testing QID
[2023-03-31] MEDS: Acetaminophen 500 MG TAB 1000 MG PO (10:54)
== END 2023-03-31 16:53 | disposition short-term general hospital (02) ==
PROVIDERS: Physician Assistant; Registered Nurse Emergency; Emergency Provider Emergency Medicine
DX: O99.412 Diseases of the circulatory system complicating pregnancy, second trimester (principal); R07.9 Chest pain, unspecified; R79.89 Other specified abnormal findings of blood chemistry; O99.332 Smoking (tobacco) complicating pregnancy, second trimester; F17.290 Nicotine dependence, other tobacco product, uncomplicated; Z3A.24 24 weeks gestation of pregnancy
CPT/HCPCS: 00123; 36415; 80053; 83690; 93005; 96360; 96361; 99285; 83735; 83880; 84443; 84484; 85025; 85379; 93010; 93306

== ENCOUNTER 2023-06-09 15:29 | Emergency (ER) | payer OTHER, SELFPAY ==
[2023-06-09] VITALS (9 sets, daily range): BP systolic 112–129; BP diastolic 40–78; PULSE 99–188; RESP 14–18; TEMP 36.5; O2SAT 99
--- NOTE | 2023-06-09 15:30 | RT.EKG_ITS ---
APPROVED REPORT Exam: Resting ECG Reason for Exam: chest pain Patient Location: E HR:188 bpm ECG Measurements Heart Rate 188 AXIS ID 70 P 0 QRSd 79 QRS 38 QT 257 T 214 QTc 454 Conclusion Supraventricular tachycardia...V-rate>(220-age), QRSd<120 ST elevation secondary to high heart rate Nonspecific T abnormalities, lateral leads...T <-0.10mV, I aVL V5 V6
--- NOTE | 2023-06-09 15:45 | RT.EKG_ITS ---
APPROVED REPORT Exam: Resting ECG Reason for Exam: chest pain Patient Location: E HR:98 bpm ECG Measurements Heart Rate 98 AXIS GA 153 P 24 QRSd 84 QRS 25 QT 342 T 40 QTc 437 Conclusion Sinus rhythm...normal P axis, V-rate 60- 99
[2023-06-09 15:49] LABS: Abs Immature Grans 0.14 10^3/uL (0.0-0.06); Absolute Basophil Count 0.03 10^3/uL (0.0-0.2); Absolute Eosinophil Count 0.11 10^3/uL (0.0-0.7); Absolute Lymphocyte Count 1.99 10^3/uL (1.2-3.4); Absolute Monocyte Count 0.92 10^3/uL (0.1-0.8); Absolute Neutrophil Count 7.06 10^3/uL (1.2-6.7); Basophils % 0.3; Eosinophils % 1.1; HCT 37.1 % (36.0-46.0); HGB 12.4 g/dL (11.2-15.7); Immature Grans % 1.4; Lymphocytes % 19.4; MCH 31.6 pg (27.0-33.0); MCHC 33.4 % (32.0-36.0); MCV 94 fL (80-95); MPV 8.9 fL (8.0-11.0); Neutrophils % 68.8; Platelet Count 266 10^3/uL (130-400); RBC 3.93 10^6/uL (3.93-5.22); RDW 13.4 % (11.7-14.6); RDW-SD 46.8 fL; WBC 10.25 10^3/uL (4.4-10.8)
--- NOTE | 2023-06-09 15:51 | ED.GENADUL_ITS ---
Discharge Plan Disposition Patient Disposition: Transfer-Acute Inpatient Care Specific Acute Inpt Facility: [facility] Condition: Serious Discharge Details Clinical Impression: SVT (supraventricular tachycardia), Chest pain Primary Care Provider: Unknown,Unknown ED Provider: Ministerio Cohen Home Meds and New Rx's Prescriptions: No Action Classic 28 mg iron- 800 mcg tablet 1 tab PO DAILY aspirin 81 mg tablet,delayed release (DR/EC) 81 mg PO DAILY Qty: 60 4RF Rx Instructions: 1 tab daily alternating with 2 tabs every other day Unisom (doxylamine) 25 mg tablet 25 mg PO QHS PRN (DME) FreeStyle Lite Strips Strip See Rx Instructions .ROUTE .MEDSUPPLY Qty: 100 3RF Rx Instructions: Testing QID (DME) lancets [FreeStyle Lancets] 28 gauge misc See Rx Instructions .ROUTE .MEDSUPPLY Qty: 100 3RF Rx Instructions: Testing QID metoprolol succinate 25 mg tablet extended release 24 hr 50 mg PO DAILY acetaminophen 500 mg capsule 500 mg PO Q6H PRN Humulin N NPH Insulin KwikPen 100 unit/mL (3 mL) insulin pen 6 unit SUBCUT DAILY Discharge Data Discharge Date/Time-TO BE ENTERED AT DEPARTURE: 06/09/23 17:01 HPI General Mode of arrival: ambulatory . Date/Time Provider Initiated Documentation: 06/09/23 15:31 . Limitations to Documentation: no limitations . Information obtained by: patient . HPI Narrative: 32-year-old female -1-1-2 at 34 weeks here with chief complaint of palpitations and chest discomfort. Patient notes started to experience rapid pounding heart rate about 30 minutes prior to arrival. Symptoms are constant. She has associated discomfort in her throat. She has associated anxiety. No shortness of breath. Patient denies drug use. No herbal supplements. She did drink a caffeinated soda today and she does not typically have this. Of note, patient had similar discomfort at 24 weeks, was seen in the emergency department after resolution of palpitations and was noted to have elevated troponin and was sent to [facility]. She has been taking metoprolol as prescribed. Related Data Home Medications Medication Instructions Recorded Confirmed vits no.[id number]-ferrous fum 1 tab PO DAILY 11/10/22 06/09/23 28 mg iron-folic acid 800 mcg tablet (Classic ) doxylamine succinate 25 mg tablet 25 mg PO QHS PRN 12/02/22 06/09/23 (Unisom (doxylamine)) aspirin 81 mg tablet,delayed 81 mg PO DAILY #60 tabs 12/23/22 06/09/23 release blood sugar diagnostic (FreeStyle #100 ea 12/24/22 06/09/23 Lite Strips) lancets 28 gauge (FreeStyle #100 ea 12/24/22 06/09/23 Lancets) acetaminophen 500 mg capsule 500 mg PO Q6H PRN 06/09/23 06/09/23 insulin NPH isoph U-100 human 100 6 unit subcut DAILY 06/09/23 06/09/23 unit/mL (3 mL) subcutaneous pen (Humulin N NPH U-100 Insulin KwikPen) metoprolol succinate 25 mg 50 mg PO DAILY 06/09/23 06/09/23 tablet,extended release 24 hr Previous Rx's Medication Instructions Recorded aspirin 81 mg tablet,delayed 81 mg PO DAILY #60 tabs 12/23/22 release blood sugar diagnostic (FreeStyle #100 ea 12/24/22 Lite Strips) lancets 28 gauge (FreeStyle #100 ea 12/24/22 Lancets) Allergies Allergy/AdvReac Type Severity Reaction Status Date / Time Sulfa (Sulfonamide AdvReac Intermediate vomiting Verified 06/09/23 16:17 Antibiotics) General Stated Complaint: Chest Pain YASEMIN: 2 Review of Systems All systems reviewed & are unremarkable except as noted in HPI and below Cardiovascular Cardiovascular: Reports system reviewed and no additional complaints, except as documented Respiratory Respiratory: Reports system reviewed and no additional complaints, except as documented Exam Const General: cooperative HENMT Mouth: moist mucous membranes Eyes Conjunctivae: normal conjunctivae Sclera: normal sclerae Neck Neck: trachea midline and supple Resp Auscultation: clear to auscultation bilaterally, no rales, no rhonchi and no wheezes Cardio Rate: tachycardic Rhythm: regular rhythm GI Palpation: soft, not firm, no guarding, no masses, not rigid and nontender Skin General skin exam: no rashes or lesions noted Neuro General: patient alert, patient awake and tone normal Extrem General: no edema Psych Appearance: grossly normal Mental Status: mental status grossly normal Affect: anxious affect Course Vital Signs Vital signs: Vital Signs Temperature 36.5 C 06/09/23 15:40 Pulse 183 H 06/09/23 15:40 Respiratory Rate 18 06/09/23 15:40 Blood Pressure 124/74 06/09/23 15:40 Pulse Oximetry 99 06/09/23 15:40 Temperature 36.5 C 06/09/23 15:40 Temperature Source Tympanic 06/09/23 15:40 Pulse 183 H 06/09/23 15:40 Respiratory Rate 18 06/09/23 15:40 Blood Pressure 124/74 06/09/23 15:40 Blood Pressure Position Supine 06/09/23 15:40 Pulse Oximetry 99 06/09/23 15:40 Oxygen Delivery Method Room Air 06/09/23 15:40 Oxygen Flow Rate 0 06/09/23 15:40 Pain Level 7 06/09/23 15:40 Medical Decision Making 9115 --32-year-old -1-1-2 at 34 weeks here with pounding heart rate and chest discomfort that started 30 minutes prior to arrival. Patient saturating well in no respiratory distress. Normotensive. No leg swelling or calf pain. No shortness of breath. Patient has had recent URI. She has been taking metoprolol as prescribed. I reviewed front desk monitor in the room: Consistent with SVT in the 180s. EKG was reviewed and interpreted by me: Please report, supraventricular tachycardia 188 bpm, ST depression noted V3 to V5. Carotid massage and vagal maneuvers were attempted and unsuccessful at converting rhythm. Patient converted to sinus tachycardia spontaneously. 1640 --I spoke with Dr. Arriola, OB at [facility], discussed ED presentation course, she recommends transfer for cardiac evaluation and will accept the patient in transfer. Bed is currently available in L&D. She request nursing call with report to . Plan discussed with patient who consents to transfer. COVID, influenza and RSV testing pending at time of transport. Lab Data Lab results reviewed: Yes I reviewed the patient's lab results. Labs: Laboratory Tests Range/Units 06/09/23 15:40 WBC (4.4-10.8) 10^3/uL 10.25 RBC (3.93-5.22) 10^6/uL 3.93 Hgb (11.2-15.7) g/dL 12.4 Hct (36.0-46.0) % 37.1 MCV (80-95) fL 94 MCH (27.0-33.0) pg 31.6 MCHC (32.0-36.0) % 33.4 RDW (11.7-14.6) % 13.4 Plt Count (130-400) 10^3/uL 266 MPV (8.0-11.0) fL 8.9 Immature Gran % 1.4 Neutrophils % 68.8 Lymphocytes % 19.4 Monocytes % 9.0 Eosinophils % 1.1 Basophils % 0.3 Nucleated RBC % (0.0-0.3) % 0.0 Absolute Neutrophils (1.2-6.7) 10^3/uL 7.06 H Absolute Lymphocytes (1.2-3.4) 10^3/uL 1.99 Absolute Monocytes (0.1-0.8) 10^3/uL 0.92 H Absolute Eosinophils (0.0-0.7) 10^3/uL 0.11 Absolute Basophils (0.0-0.2) 10^3/uL 0.03 Sodium (136-145) mmol/L 140 Potassium (3.5-5.1) mmol/L 3.5 Chloride (98-107) mmol/L 106 Carbon Dioxide (21.0-32.0) mmol/L 21.8 Anion Gap (3-11) mmol/L 12.2 H BUN (7-18) mg/dL 7 Creatinine (0.55-1.02) mg/dL 0.5 L Est GFR (CKD-EPI 2020) (mL/min/1.73m2) 126.93 Glucose (74-106) mg/dL 125 H Calcium (8.5-10.1) mg/dL 8.7 Magnesium (1.8-2.4) mg/dL 1.8 Total Bilirubin (0.2-1.0) mg/dL 0.3 AST (15-37) U/L 24 ALT (14-59) U/L 22 Alkaline Phosphatase (46-116) U/L 135 H Troponin I (< or =60) ng/L < 50 Total Protein (6.4-8.2) g/dL 7.0 Albumin (3.4-5.0) g/dL 2.8 L TSH (0.36-3.74) uIU/mL 1.74 Quality:[facility] Health Related Social Needs: No Data to Display PFSH All Active Problems (Updated 06/09/23 @ 16:43 by Ministerio Cohen MD) Chest pain (Acute) SVT (supraventricular tachycardia) (Chronic) Low lying placenta nos or without hemorrhage, second trimester (Acute) Arrhythmia (Acute) Right lower quadrant abdominal pain (Acute) (Acute) PCOS (polycystic ovarian syndrome) (Acute) Treated with metformin in the past Depression (Chronic) Headache (Acute) Injury of pelvis (Acute) injury in the , surgery recommended after childbearing Dental root implant present (Acute) Medical History Vaginal discomfort Right wrist pain Rotator cuff tear, right Bursitis of right shoulder Tendonitis of long head of biceps brachii of right shoulder Miscarriage Vaginal delivery Elevated glucose level Superior labrum kwuotjno-oc-ouqyaefoi (SLAP) tear of right shoulder repaired 2014 Vaginal discharge during in third trimester Vaginal leukorrhea Personal history of female infertility Breast pain, left Miscarriage, threatened, early Surgical History History of shoulder surgery Rt SLAP repair History of cholecystectomy Family History Mother Diabetes type 2 Father Liver disease related to exposure to toxin while in [place] Paternal Grandfather Colon cancer also Paternal GGM and GGF Social History Smoking/Tobacco Use Status: Current every day Tobacco Type: e-cigarettes Tobacco: How many years used: 12 Smoking risk assessment performed?: Yes Alcohol Intake: current Alcohol Intake frequency: holidays/special occasions only Drug use: Rarely Substance use type: marijuana Housing: house Current gender identity: female Do you feel safe at home: Yes Do you feel safe in your relationship?: Yes History History 4 Para 2 Hx # Term Pregnancies 2 Multiple births 0 Hx # Pregnancies 0 Ectopic pregnancies 0 AB induced 0 Hx Number of Living Children 2 AB spontaneous 1 Past Pregnancies Del. Date GA/Weeks # Preg Succ Route Wgt Sex Labor Lgth Anesth esia Location Prov Compl 12/31/16 41 No vaginal 3033.399 g Male 27 hrs regional [facility] 10/15/20 37 No vaginal 3515.341 g Male 19 regional Delfino Mcginnis CNM Delivery Date: 12/31/16 Last Updated by: Cecilia Pinto IOL for low fluid & postdates, arceo cath (hated it), amnioinfusion for decels, epidural, quick 2nd stage. Carlos Delivery Date: 10/15/20 Last Updated by: Cecilia Pinto IOL for gHTN & GDM, Joseph Sanderson
--- NOTE | 2023-06-09 16:07 | NUR.NOTE ---
Nursing Note: 6730 patient converted to sinus rhythm captured by EKG and read by MD Noel. After converting patient reports feeling tight in her chest but no pain and denies SOB at this time. Stretcher in lowest position and Call light within reach at this time.
[2023-06-09 16:18] LABS: ALT 22 U/L (14-59); AST 24 U/L (15-37); Albumin 2.8 g/dL (3.4-5.0); Alkaline Phosphatase 135 U/L (46-116); Anion Gap 12.2 mmol/L (3-11); BUN 7 mg/dL (7-18); Bilirubin, Total 0.3 mg/dL (0.2-1.0); CO2 21.8 mmol/L (21.0-32.0); CREATININE 0.5 mg/dL (0.55-1.02); Calcium 8.7 mg/dL (8.5-10.1); Chloride 106 mmol/L (98-107); Estimated GFR 126.93 (mL/min/1.73m2); Glucose 125 mg/dL (74-106); Magnesium 1.8 mg/dL (1.8-2.4); Potassium 3.5 mmol/L (3.5-5.1); Sodium 140 mmol/L (136-145); TSH (W/Ref FT4) 1.74 uIU/mL (0.36-3.74)
[2023-06-09 16:22] LABS: Troponin I < 50 ng/L (< or =60)
[2023-06-09 17:00] LABS: COVID-19 PCR Negative (Negative); Influenza A PCR Negative (Negative); Influenza B PCR Negative (Negative); RSV PCR Negative (Negative); Source Nasopharynx
== END 2023-06-09 17:01 | disposition short-term general hospital (02) ==
PROVIDERS: Emergency Provider Student in an Organized Health Care Education/Training Program
DX: R07.9 Chest pain, unspecified (principal); O99.413 Diseases of the circulatory system complicating pregnancy, third trimester; Z11.52 Encounter for screening for COVID-19; Z3A.34 34 weeks gestation of pregnancy
CPT/HCPCS: 80053; 87637; 93005; 99285; 83735; 84443; 84484; 85025; 93010

== ENCOUNTER 2024-01-06 17:47 | Outpatient (REF) | payer BC, SELFPAY | END 2024-01-06 17:48 | disposition home or self-care (01) | LOC: LBN 17:47 | PROVIDERS: Visit Provider Physician Assistant | DX: J02.9 Acute pharyngitis, unspecified (principal); H66.93 Otitis media, unspecified, bilateral | CPT/HCPCS: 87070 ==

== ENCOUNTER 2024-04-19 11:30 | Emergency (ER) | payer OTHER, SELFPAY ==
--- NOTE | 2024-04-19 11:30 | RT.EKG_ITS ---
APPROVED REPORT Exam: Resting ECG Reason for Exam: chest pain Patient Location: E HR:66 bpm ECG Measurements Heart Rate 66 AXIS CO 165 P 61 QRSd 88 QRS 53 QT 362 T 247 QTc 381 Conclusion Sinus rhythm normal axis no stemi
[2024-04-19 11:34] VITALS: BP 123/87; PULSE 77; RESP 20; TEMP 36.6; O2SAT 96
--- NOTE | 2024-04-19 12:27 | DI.RAD_ITS ---
Exam(s) XR CHEST 2V PA LATERAL EXAM: XR CHEST 2V PA LATERAL CLINICAL HISTORY: Chest pain. TECHNIQUE: 2D digital imaging was performed. COMPARISON: No exams were available for comparison FINDINGS: 2 views: Heart size is normal. The mediastinum is not widened. Lungs are clear. No infiltrates nor pleural effusions. IMPRESSION: No acute pulmonary findings. DATA REPOSITORY: RADIATION DOSE DELIVERED:
[2024-04-19] MEDS: Methocarbamol 500 MG TAB 1000 MG PO (12:39)
[2024-04-19] MEDS: Aspirin 325 MG TAB PO (12:39)
[2024-04-19] MEDS: Acetaminophen 500 MG TAB 1000 MG PO (12:39)
[2024-04-19 12:58] LABS: Abs Immature Grans 0.02 10^3/uL (0.0-0.06); Absolute Basophil Count 0.04 10^3/uL (0.0-0.2); Absolute Eosinophil Count 0.05 10^3/uL (0.0-0.7); Absolute Lymphocyte Count 1.86 10^3/uL (1.2-3.4); Absolute Monocyte Count 0.42 10^3/uL (0.1-0.8); Absolute Neutrophil Count 3.92 10^3/uL (1.2-6.7); Basophils % 0.6 %; Eosinophils % 0.8 %; HCT 43.2 % (36.0-46.0); Immature Grans % 0.3 %; Lymphocytes % 29.5 %; MCH 31.8 pg (27.0-33.0); MCHC 34.7 % (32.0-36.0); MCV 92 fL (80-95); Monocytes % 6.7 %; Neutrophils % 62.1 %; Platelet Count 318 10^3/uL (130-400); RBC 4.71 10^6/uL (3.93-5.22); RDW 12.4 % (11.7-14.6); RDW-SD 41.8 fL; WBC 6.31 10^3/uL (4.4-10.8)
[2024-04-19 13:28] LABS: Anion Gap 6.6 mmol/L (3-11); BUN 5 mg/dL (7-18); CO2 29.4 mmol/L (21.0-32.0); CREATININE 0.7 mg/dL (0.55-1.02); Calcium 9.6 mg/dL (8.5-10.1); Chloride 105 mmol/L (98-107); Estimated GFR 116.31 (mL/min/1.73m2); Glucose 88 mg/dL (74-106); Potassium 3.9 mmol/L (3.5-5.1); Sodium 141 mmol/L (136-145)
[2024-04-19 13:29] LABS: Troponin I < 4 ng/L (<or=51)
[2024-04-19 14:01] VITALS: BP 111/74; PULSE 83; RESP 16; O2SAT 96
--- NOTE | 2024-04-19 17:19 | W.ED.GENAD ---
Discharge Plan Disposition Patient Disposition: Home Discharge Details Clinical Impression: Chest pain Primary Care Provider: Unknown,Unknown ED Provider: Jacky Santana Home Meds and New Rx's Prescriptions: No Action escitalopram oxalate 5 mg tablet 10 mg PO DAILY diltiazem HCl 120 mg capsule,extended release 12 hr 120 mg PO DAILY acetaminophen 500 mg capsule 500 mg PO Q6H PRN Wegovy 1.7 mg/0.75 mL pen injector 1.7 mg SUBCUT Q7D Discharge Instructions Additional Instructions: Your EKG, chest x-ray and blood work do not reveal an acute cause for your chest pain and work up is reassuring that this is not pain caused by your heart Please take Motrin and Tylenol as needed to relieve and follow-up with your primary care provider for additional workup as needed. Discharge Data Discharge Date/Time-TO BE ENTERED AT DEPARTURE: 04/19/24 14:07 HPI General Date/Time Provider Initiated Documentation: 04/19/24 12:27. HPI Narrative: 33-year-old female without significant past medical history presents for evaluation of chest pain. She reports that the pain is right-sided around her right shoulder. It started yesterday and has been persistent all day. Mild nausea, no vomiting, no diaphoresis, no shortness of breath. Denies any pain with breathing or difficulty breathing. No history of smoking. Related Data Home Medications ?Medication ?Instructions ?Recorded ?Confirmed acetaminophen 500 mg capsule 500 mg PO Q6H PRN 06/09/23 04/19/24 diltiazem HCl 120 mg 120 mg PO DAILY 01/06/24 04/19/24 capsule,extended release 12 hr escitalopram oxalate 5 mg tablet 10 mg PO DAILY 01/06/24 04/19/24 semaglutide (weight loss) 1.7 1.7 mg subcut Q7D 04/19/24 04/19/24 mg/0.75 mL subcutaneous pen injector (Wegovy) Allergies Allergy/AdvReac Type Severity Reaction Status Date / Time Sulfa (Sulfonamide AdvReac Intermediate vomiting Verified 01/06/24 09:16 Antibiotics) General Stated Complaint: Chest Pain YASEMIN: 3 Exam Narrative Exam Narrative: Review of Systems: All systems reviewed & are unremarkable except as noted in HPI and below Well-developed, no acute distress NCAT RRR, No chest wall tenderness Unlabored respiratory effort, CTAB Nondistended abdomen , soft non tender Extremities w/o edema Course Vital Signs Vital signs: Vital Signs Temperature 36.6 C 04/19/24 11:34 Pulse 77 04/19/24 11:34 Respiratory Rate 20 04/19/24 11:34 Blood Pressure 123/87 04/19/24 11:34 Pulse Oximetry 96 04/19/24 11:34 Temperature 36.6 C 04/19/24 11:34 Temperature Source Oral 04/19/24 11:34 Pulse 83 04/19/24 14:01 Respiratory Rate 16 04/19/24 14:01 Blood Pressure 111/74 04/19/24 14:01 Blood Pressure Position Sitting 04/19/24 11:34 Pulse Oximetry 96 04/19/24 14:01 Oxygen Delivery Method Room Air 04/19/24 11:34 Oxygen Flow Rate 0 04/19/24 11:34 Lab/Test Results Lab/Test Results: Laboratory Tests Range/Units 04/19/24 12:48 WBC (4.4-10.8) 10^3/uL 6.31 RBC (3.93-5.22) 10^6/uL 4.71 Hgb (11.2-15.7) g/dL 15.0 Hct (36.0-46.0) % 43.2 MCV (80-95) fL 92 MCH (27.0-33.0) pg 31.8 MCHC (32.0-36.0) % 34.7 RDW (11.7-14.6) % 12.4 Plt Count (130-400) 10^3/uL 318 MPV (8.0-11.0) fL 9.0 Immature Gran % % 0.3 Neutrophils % % 62.1 Lymphocytes % % 29.5 Monocytes % % 6.7 Eosinophils % % 0.8 Basophils % % 0.6 Nucleated RBC % (0.0-0.3) % 0.0 Absolute Neutrophils (1.2-6.7) 10^3/uL 3.92 Absolute Lymphocytes (1.2-3.4) 10^3/uL 1.86 Absolute Monocytes (0.1-0.8) 10^3/uL 0.42 Absolute Eosinophils (0.0-0.7) 10^3/uL 0.05 Absolute Basophils (0.0-0.2) 10^3/uL 0.04 Sodium (136-145) mmol/L 141 Potassium (3.5-5.1) mmol/L 3.9 Chloride (98-107) mmol/L 105 Carbon Dioxide (21.0-32.0) mmol/L 29.4 Anion Gap (3-11) mmol/L 6.6 BUN (7-18) mg/dL 5 L Creatinine (0.55-1.02) mg/dL 0.7 Est GFR (CKD-EPI 2020) (mL/min/1.73m2) 116.31 Glucose (74-106) mg/dL 88 Calcium (8.5-10.1) mg/dL 9.6 Troponin I (<or=51) ng/L < 4 Medical Decision Making Emergent evaluation of chest pain. Pain is right-sided. No risk factors for ACS. PERC negative no risk factors for DVT or symptoms consistent with this. Seems more musculoskeletal in nature. EKG does not demonstrate acute ischemic changes. Lab work including troponin was obtained and this was unremarkable. A chest x-ray was obtained and no focal process was noted. Recommend continued Motrin and Tylenol as needed for discomfort and follow-up with PCP for further evaluation Quality:[facility] Health Related Social Needs: No Data to Display PFSH All Active Problems (Updated 04/19/24 @ 13:58 by Jacky Santana MD) Chest pain (Acute) Sore throat (Acute) Low lying placenta nos or without hemorrhage, second trimester (Acute) Arrhythmia (Acute) Right lower quadrant abdominal pain (Acute) (Acute) PCOS (polycystic ovarian syndrome) (Acute) Treated with metformin in the past Depression (Chronic) Headache (Acute) Injury of pelvis (Acute) injury in the , surgery recommended after childbearing Dental root implant present (Acute) Medical History Vaginal discomfort Right wrist pain Rotator cuff tear, right Bursitis of right shoulder Tendonitis of long head of biceps brachii of right shoulder Miscarriage Vaginal delivery Elevated glucose level Superior labrum noqgnxxz-ts-repiyngwq (SLAP) tear of right shoulder repaired 2014 Vaginal discharge during in third trimester Vaginal leukorrhea Personal history of female infertility Breast pain, left Miscarriage, threatened, early Surgical History History of shoulder surgery Rt SLAP repair History of cholecystectomy Family History Mother Diabetes type 2 Father Liver disease related to exposure to toxin while in [place] Paternal Grandfather Colon cancer also Paternal GGM and GGF Social History Smoking/Tobacco Use Status: Current every day Tobacco Type: e-cigarettes Tobacco: How many years used: 12 Smoking risk assessment performed?: Yes Alcohol Intake: current Alcohol Intake frequency: holidays/special occasions only Drug use: Rarely Substance use type: marijuana Housing: house Current gender identity: female Do you feel safe at home: Yes Do you feel safe in your relationship?: Yes History History 4 Para 2 Hx # Term Pregnancies 2 Multiple births 0 Hx # Pregnancies 0 Ectopic pregnancies 0 AB induced 0 Hx Number of Living Children 2 AB spontaneous 1 Past Pregnancies Del. Date GA/Weeks # Preg Succ Route Wgt Sex Labor Lgth Anesthesia Location Prov Complic 12/31/16 41 No vaginal 3033.399 g Male 27 hrs regional [facility] Midwif[facility] Svc 10/15/20 37 No vaginal 3515.341 g Male 19 regional JANETH Sharma Delivery Date: 12/31/16 Last Updated by: Cecilia Pinto IOL for low fluid & postdates, arceo cath (hated it), amnioinfusion for decels, epidural, quick 2nd stage. Carlos Delivery Date: 10/15/20 Last Updated by: Cecilia Pinto IOL for gHTN & GDM, oJseph Sanderson
== END 2024-04-19 14:07 | disposition home or self-care (01) ==
PROVIDERS: Emergency Provider Emergency Medicine
DX: R07.9 Chest pain, unspecified (principal); R11.0 Nausea; I25.2 Old myocardial infarction; F17.290 Nicotine dependence, other tobacco product, uncomplicated
CPT/HCPCS: 36415; 80048; 93005; 99285; 71046; 84484; 85025; 93010; 99284

== ENCOUNTER 2024-08-08 12:38 | Outpatient (REF) | payer OTHER, BC, SELFPAY ==
[2024-08-08 15:59] LABS: Bacteria Rare HPF (Negative); C & S Indicated? C&S Done As Ordered; Casts Negative LPF (Negative); Crystals Negative HPF (Negative); Epithelial Cells Rare HPF (Negative); Mucus Negative (Negative); Other Cells Rare Transitional (Negative); WBC >50 HPF (0-5)
== END 2024-08-08 12:39 | disposition home or self-care (01) ==
LOC: LBN 12:38
PROVIDERS: Visit Provider Physician Assistant Medical
DX: N39.0 Urinary tract infection, site not specified (principal)
CPT/HCPCS: 87077; 81015; 87086; 87186

== ENCOUNTER 2024-10-12 08:31 | Outpatient (CLI) | payer OTHER, BC, SELFPAY ==
[2024-10-12 18:31] LABS: CEA <0.5 ng/mL (See Note)
[2024-10-12 19:00] LABS: CA 125 7 U/mL (<30); CA 19-9 7 U/mL (<35)
[2024-10-15 13:48] LABS: HE4 35 pmol/L (<=140)
== END 2024-10-12 08:32 | disposition home or self-care (01) ==
PROVIDERS: PCP Internal Medicine; Visit Provider Obstetrics & Gynecology
DX: N94.9 Unspecified condition associated with female genital organs and menstrual cycle (principal)
CPT/HCPCS: 36415; 86304; 86305; 82378; 86301

== ENCOUNTER 2024-10-23 14:00 | Outpatient (CLI) | payer OTHER, SELFPAY ==
--- NOTE | 2024-10-23 14:00 | RT.EKG_ITS ---
APPROVED REPORT Exam: Resting ECG Reason for Exam: PRE-OP Patient Location: O HR:72 bpm ECG Measurements Heart Rate 72 AXIS WI 140 P 32 QRSd 89 QRS 43 QT 389 T 28 QTc 426 Conclusion Sinus rhythm...normal P axis, V-rate 50- 99 Normal Electrocardiogram
== END 2024-10-23 14:01 | disposition home or self-care (01) ==
LOC: CARDOPNVT 14:00
PROVIDERS: PCP Internal Medicine; Visit Provider Obstetrics & Gynecology
DX: Z01.818 Encounter for other preprocedural examination (principal)
CPT/HCPCS: 93005; 93010

== ENCOUNTER 2024-10-23 17:09 | Outpatient (CLI) | payer OTHER, SELFPAY ==
[2024-10-23 14:28] LABS: HCT 36.8 % (36.0-46.0); HGB 12.7 g/dL (11.2-15.7); MCH 31.8 pg (27.0-33.0); MCHC 34.5 % (32.0-36.0); MCV 92 fL (80-95); MPV 9.0 fL (8.0-11.0); Platelet Count 274 10^3/uL (130-400); RBC 3.99 10^6/uL (3.93-5.22); RDW 12.4 % (11.7-14.6); RDW-SD 41.9 fL; WBC 8.03 10^3/uL (4.4-10.8)
[2024-10-23 16:04] LABS: TSH (W/Ref FT4) 0.95 uIU/mL (0.36-3.74)
== END 2024-10-23 17:10 | disposition home or self-care (01) ==
LOC: LBO 17:10
PROVIDERS: PCP Internal Medicine; Visit Provider Obstetrics & Gynecology
DX: Z01.818 Encounter for other preprocedural examination (principal); Z87.898 Personal history of other specified conditions; Z3A.28 28 weeks gestation of pregnancy; O26.899 Other specified pregnancy related conditions, unspecified trimester; Z67.91 Unspecified blood type, Rh negative
CPT/HCPCS: 36415; 85027; 86850; 86900; 86901; 84443

== ENCOUNTER 2024-11-07 06:00 | Day surgery (SDC) | payer BC, SELFPAY ==
[2024-11-07] VITALS (21 sets, daily range): BP systolic 82–138; BP diastolic 38–85; PULSE 41–84; RESP 12–19; TEMP 36.2–37.4; O2SAT 91–100; BMI 26.2
[2024-11-07] MEDS: Lactated Ringers 1,000 ML 150 ML IV (07:00)
--- NOTE | 2024-11-07 07:23 | ANES.PREOP_ITS ---
General Info Date of Service Date Performed: 11/07/24 Height: 5 ft 7 in Weight: 76.1 kg Body Mass Index (BMI): 26.2 Surgical Procedure: Operation Date: 11/07/24 07:40 Proposed Procedure Side Surgeon p Diagnostic Laparoscopy, Possible Cystoscopy Dana Ferguson, DO s Possible Salping-Oophorectomy Laparoscopic Dana Ferguson, Actual Procedure Side Surgeon p Diagnostic Laparoscopy, Possible Cystectomy Dana Ferguson, DO s Possible Salpingo-oophorectomy Laparoscopic Dana Ferguson, Pre-Op Diagnosis Post-Op Diagnosis Pelvic Pain Meds Allergies and Home Medications Allergies Allergy/AdvReac Type Severity Reaction Status Date / Time Sulfa (Sulfonamide AdvReac Intermediate vomiting Verified 11/07/24 06:37 Antibiotics) Home Medication ?Medication ?Instructions ?Recorded escitalopram oxalate 5 mg tablet 10 mg PO DAILY lisdexamfetamine 20 mg capsule 20 mg PO DAILY 09/19/24 Current Visit Medications: Current Medications Generic Name Dose Route Start Last Admin Trade Name Arturoq PRN Reason Stop Dose Admin Ringer's Solution 1,000 mls @ 150 mls/hr 11/07/24 06:00 11/07/24 07:00 IV 11/07/24 23:59 150 mls/hr INFUSION ZACARIAS Administration Acetaminophen 1,000 mg in 100 mls @ 400 mls/hr 11/07/24 06:00 Ofirmev IV 11/07/24 23:59 PREOP ZACARIAS IV Miscellaneous Supplies 1 each 11/07/24 06:00 Iv Access IV 11/07/24 23:59 DIRECTED ZACARIAS Sodium Chloride 0 ml 11/07/24 06:00 Normal Saline Flush 10 Ml Syr IV 11/07/24 23:59 PRN PRN Sodium Chloride 0 ml 11/07/24 06:00 Normal Saline 10 Ml Vial IJ 11/07/24 23:59 DIRECTED PRN Sterile Water 0 ml 11/07/24 06:00 Water,Injection,Sterile 10 Ml Vial IJ 11/07/24 23:59 DIRECTED PRN PFSH Active Problems Active Problems: Problem Status Onset Code Sore throat Acute J02.9 Low lying placenta nos or without hemorrhage, second trimester Acute O44.42 Arrhythmia Acute I49.9 Right lower quadrant abdominal pain Acute R10.31 Acute Z34.90 PCOS (polycystic ovarian syndrome) Acute E28.2 Depression Chronic F32.9 Headache Acute R51.9 Injury of pelvis Acute S39.93XA Dental root implant present Acute Z97.2 Medical History Medical History Vaginal discomfort Right wrist pain Rotator cuff tear, right Bursitis of right shoulder Tendonitis of long head of biceps brachii of right shoulder Miscarriage Vaginal delivery Elevated glucose level Superior labrum vbfzzftf-[id number]-[id number] (SLAP) tear of right shoulder repaired 2014 Vaginal discharge during in third trimester Vaginal leukorrhea Personal history of female infertility Breast pain, left Miscarriage, threatened, early Surgical History Surgical History History of shoulder surgery Rt SLAP repair History of cholecystectomy Tobacco Smoking/Tobacco Use Status: Current every day Tobacco Type: e-cigarettes Alcohol Alcohol Intake: current Alcohol intake frequency: holidays/special occasions only Substance Use Substance use: Rarely Substance use type: marijuana Prental History History 4 Para 2 Hx # Term Pregnancies 2 Multiple births 0 Hx # Pregnancies 0 Ectopic pregnancies 0 AB induced 0 Hx Number of Living Children 2 AB spontaneous 1 Past Pregnancies Del. Date GA/Weeks # Preg Succ Route Wgt Sex Labor Lgth Anesth esia Location [facility] 12/31/16 41 No vaginal 3033.399 g Male 27 hrs [facility] [place] [facility] [place] 37 No vaginal 3515.341 g Male 19 regional Delfino Mcginnis CNM 07/02/23 37 No Yes vaginal 3061.748 g Male 5 hours Delivery Date: 12/31/16 Last Updated by: Cecilia Pinto IOL for low fluid & postdates, arceo cath (hated it), amnioinfusion for decels, epidural, quick 2nd stage. Carlos Delivery Date: 10/15/20 Last Updated by: Cecilia Pinto IOL for gHTN & GDM, Joseph Sanderson Delivery Date: 07/02/23 Last Updated by: Doris Rodrigues [facility] [place] Vital Signs and Lab Results Vital Signs Most Recent Vital Signs in EMR: Most Recent Vital Signs Temp Pulse Resp BP Pulse Ox 36.5 C 77 18 117/85 97 11/07/24 06:15 11/07/24 06:15 11/07/24 06:15 11/07/24 06:15 11/07/24 06:15 Point of Care Results Point of Care Results: POC- Test(urine) Negative 11/07/24 06:58 Lab Results Blood Type / Crossmatch: Antibody Screen NEGATIVE 10/23/24 Complete Blood Count: WBC, (4.4-10.8) 8.03 10^3/uL 10/23/24, 14:23 RBC, (3.93-5.22) 3.99 10^6/uL 10/23/24, 14:23 Hgb, (11.2-15.7) 12.7 g/dL 10/23/24, 14: Hct, (36.0-46.0) 36.8 % 10/23/24, 14: Plt Count, (130-400) 274 10^3/uL 10/23/24, 14:23 Thyroid Panel: TSH, (0.36-3.74) 0.95 uIU/mL 10/23/24, 14:23 Anesthesia Assessment and Plan Anesthesia History Personal History: No History of Anesthesia Complications Family History: No Family History of Anesthesia Complications Exercise Tolerance Exercise Tolerance: Metabolic Equivalents>4 Pertinent Negatives Pertinent Negatives: No Symptoms of GERD Cardiac & Pulmonary Exam Cardiac Exam: Normal S1/S2 Heart Sounds Pulmonary Exam: Clear Bilateral Breath Sounds Implantable Cardiac Device Does patient have a Pacemaker or an ICD?: No Airway Exam Known Difficult Airway: No Mallampati Class: 2 Mouth Opening: Normal (> 3cm) Thyromental Distance: Greater than 3 cm Neck Range of Motion: Full ROM Neck Circumference: Normal Teeth Condition: Normal Dentition ASA Classification ASA Score: ASA 2 Emergency Case?: No NPO Status NPO Status: NPO Clears >2 hours, Solids >8 hours Status Status: Negative HCG Anesthesia Plan Resuscitation Status: Full Code Anesthesia Technique: General Anesthesia Airway Planned: Endotracheal Tube Monitors Used: Standard Monitors and SedLine Preoperative Comments:: Hx of SVT while . Was on Diltiazem for a period of time. Currently WV'ed. 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 Right shoulder surgery with RC repair.
--- NOTE | 2024-11-07 07:41 | HPE_ITS ---
Date of service: 11/07/24 Time of Service: 07:41 Assessment and Plan Assessment and plan (1) Pelvic pain: Status: Acute Assessment and plan: 33 yo ( x3) - H/O arrythmia, depression - H/O PCOS - BMI 26.6 - Contraception: BTL - Sexually active: Yes; heterosexual, committed relationship - H/O sexual abuse / assault: Denies any history - Cigarette smoking: Quit smoking 2018ish; current THC - Last pap 04/09/2020: Neg cytology, neg HPV - 10/11/2024 TVUS: 6.2 x 4.0 x 5.3 cm uterus with a 3 mm endometrial stripe. Myometrium is modestly heterogenous; 10 mm fibroid at fundus. 5 x 5 x 8 mm fatt y echogenicity, well-circumscribed in the left ovary noted; reports suggest possible dermoid. No free fluid - Family history: Mat grandparents x2: colon CA, Pat grandparent colon x1. All dx in 80's - - - - - - - - - - - - - 09/20/2024 (Marty): Reports recent cramping that has her concerned. Started approximately 3 months ago. She was diagnosed w/a kidney infection 4-6 weeks ago; was prescribed antibiotics which she completed (outside of an injection), but this did not make the cramping go away (back pain did get better). Describes cramping as centralized and mostly on the left. Sharp, constant pain. Not positional. 15 months and did have tubes removed day after. Uncertain if pain was present following tubal. Has been sexually active during time of pain; sometimes occurs during pain making it a shooting pain. Does not disrupt sex. It is not related to position during sex. Denies bleeding after sex. Patient reports h/o pelvic bone instability for several years; has discussed surgery for SI joint issues (wanted to fuse SI joints). Did do physical therapy. No vaginal discharge. Not improved with Tylenol and Ibuprofen. Declines STI testing reporting recent testing has been negative and she has been in a committed relationship. Pelvic exam is notable for modest (may be stage I) apical wall prolapse, modest CMT, notable discomfort with guarding with palpation of the posterior cul-de-sac. No flank tenderness. No lymph nodes. Patient denies any known history of endometriosis. Discussed possible utility of pelvic floor physical therapy. Will get a transvaginal ultrasound as well to assess for any overt pathology. Follow-up for ultrasound results and to discuss management. 10/11/2024 (Marty): Patient continues to complain of persistent pelvic pain as described above most notably over the left side. She is noted to have some heterogeneity throughout the myometrium possibly suggestive of adenomyosis as well as a small, irregular, well-circumscribed, hyperechoic, homogenous structure in the left ovary; ultrasound report suggesting possible early dermoid. I discussed with the patient that, given the size of the structure, I do not believe that it is necessarily is the source of her pain. However, its appearance is odd. We discussed the potential for endometriosis, and we discussed the potential for diagnostic laparoscopy to evaluate the pelvic cavity for evidence of endometriosis as well as evaluate the structure within the ovary closer. We discussed that surgical evaluation of the mass in the left adnexa may not be feasible based on its small size and location within the ovary. We discussed the potential for serial imaging as well. Patient expressed a strong interest in surgical exploration. We discussed that there is a chance that we would perform such a procedure and still come away without answers; we also discussed that surgery comes with notable risks, including, but not limited to bleeding, infection, damage to surrounding tissues such as the ureters, ovaries, fallopian tubes, uterus, bowel, major nerves and vessels, etc. We discussed that there are risks associated with anesthesia as well as unforeseen complications. She verbalizes understanding of this, and continue to express a strong desire for surgical exploration. Tumor markers collected in an abundance of caution given the odd appearance of the structure. Boarded for diagnostic laparoscopy, possible cystectomy, possible salpingo-oophorectomy. 10/23/2024 (Marty): Patient presents for pre-operative assessment in anticipation of diagnostic laparocopy with possible pelvic biopsy, possible cystectomy, possible salpingoopherectomy, possible open. We discussed that, as with anytime we break the skin, there is always a risk of bleeding, infection, and damage to surrounding tissues, including, but not limited to, bowel, bladder, major nerves and vessels, ureteters, fallopian tubes, ovaries, uterus, and any other surrounding structures. There are risks associated with anesthesia as well as unforseen complications. We discussed that there is a remote, but real risk for the potential need for blood transfusion and she was consented to blood transfusion if needed. She personally reports a distant history of SVT most notably during . She reports having undergone a work up with cardiology and being discharged from care for resolution. She denies any symptoms within the last several months. We will do a pre-operative EKG in an abundance of caution as well as a TSH level. Of note, we had an extensive discussion regarding the mass vs cyst identified within the ovary. Given the size, it is highly unlikely that this mass is the source of her pain; tumor markers are negative and it would likely cause more harm than good to pursue surgical exploration of this structure unless there is overt evidence of concern at the time of surgery. Patient is in agreement with this. - - - - - - - - - - - - - *Of note, patient endorses a history of irregular menses. Endorses history of PCOS. Is not on any control. History of Present Illness Narrative: 33 yo ( x3) presents for scheduled diagnostic laparoscopy, possible pelvic biopsy, possible cystectomy, possible salpingoopherectomy, possible open for persistent pelvic pain. See full discussion below. No complaints, today. PFSH All Active Problems (Updated 11/07/24 @ 07:42 by Dana Ferguson DO) Pelvic pain (Acute) Sore throat (Acute) Low lying placenta nos or without hemorrhage, second trimester (Acute) Arrhythmia (Acute) Right lower quadrant abdominal pain (Acute) (Acute) PCOS (polycystic ovarian syndrome) (Acute) Treated with metformin in the past Depression (Chronic) Headache (Acute) Injury of pelvis (Acute) injury in the , surgery recommended after childbearing Dental root implant present (Acute) Medical History Vaginal discomfort Right wrist pain Rotator cuff tear, right Bursitis of right shoulder Tendonitis of long head of biceps brachii of right shoulder Miscarriage Vaginal delivery Elevated glucose level Superior labrum zezsmgqg-ft-qhqefxfgw (SLAP) tear of right shoulder repaired 2014 Vaginal discharge during in third trimester Vaginal leukorrhea Personal history of female infertility Breast pain, left Miscarriage, threatened, early Surgical History History of shoulder surgery Rt SLAP repair History of cholecystectomy Family History Mother Diabetes type 2 Father Liver disease related to exposure to toxin while in [place] Paternal Grandfather Colon cancer also Paternal GGM and GGF Social History Smoking/Tobacco Use Status: Current every day Tobacco Type: e-cigarettes Tobacco: How many years used: 12 Smoking risk assessment performed?: Yes Alcohol Intake: current Alcohol Intake frequency: holidays/special occasions only Drug use: Rarely Substance use type: marijuana Housing: house Current gender identity: female Do you feel safe at home: Yes Do you feel safe in your relationship?: Yes History History 4 Para 2 Hx # Term Pregnancies 2 Multiple births 0 Hx # Pregnancies 0 Ectopic pregnancies 0 AB induced 0 Hx Number of Living Children 2 AB spontaneous 1 Past Pregnancies Del. Date GA/Weeks # Preg Succ Route Wgt Sex Labor Lgth Anesth esia Location Prov Complic 12/31/16 41 No vaginal 6 lb 11 oz Male 27 hrs regional [facility] 10/15/20 37 No vaginal 7 lb 12 oz Male 19 regional Delfino Mcginnis, CNM 07/02/23 37 No Yes vaginal 6 lb 12 oz Male 5 hours Delivery Date: 12/31/16 Last Updated by: Cecilia Pinto IOL for low fluid & postdates, arceo cath (hated it), amnioinfusion for decels, epidural, quick 2nd stage. Carlos Delivery Date: 10/15/20 Last Updated by: Cecilia Pinto IOL for gHTN & GDM, Joseph Sanderson Delivery Date: 07/02/23 Last Updated by: Doris Rodrigues [facility] [place] Meds Allergies and Home Medications Allergies Allergy/AdvReac Type Severity Reaction Status Date / Time Sulfa (Sulfonamide AdvReac Intermediate vomiting Verified 11/07/24 06:37 Antibiotics) Home Medications ?Medication ?Instructions ?Recorded ?Confirmed ?Type escitalopram oxalate 5 mg tablet 10 mg PO DAILY 11/07/24 History lisdexamfetamine 20 mg capsule 20 mg PO DAILY 09/19/24 11/07/24 History Exam Narrative Exam Narrative: general: Well nourished female in no immediate distress pulm: No overt respiratory distress abd: soft, non-tender, non-distended ext: no swelling psych: appropriate Results Labs Labs: Laboratory Results - last 24 hr 11/07/24 06:40 ABO/Rh O Positive Antibody Screen NEGATIVE Last Vital Signs Temp 97.7 F 11/07/24 06:15 Pulse 77 11/07/24 06:15 Resp 18 11/07/24 06:15 BP 117/85 11/07/24 06:15 Pulse Ox 97 11/07/24 06:15 Time Spent Time spent with Patient: 40-54 minutes Time was spent: preparing to see the patient(eg.review tests), obtaining and/or reviewing separately otained hiistory, referring, communicating with other health housekeeper child care, indepentently interpreting results and counseling the patient
[2024-11-07] MEDS: Silver Nitrate Stick 1 EACH (08:14)
[2024-11-07] MEDS: Bupivacaine 0.5% Pres-Free 30 ML VIAL (08:25)
--- NOTE | 2024-11-07 09:27 | W.PM.OP ---
Operative Note Operative Note PRE-OP DIAGNOSIS: pelvic pain POST-OP DIAGNOSIS: same PROCEDURE: Diagnostic laparoscopy SURGEON: Dana Ferguson ASSISTING SURGEON: Pooja Urban Refer to Anesthesia Record ESTIMATED BLOOD LOSS: 5 PATHOLOGY: none sent COMPLICATIONS: None Patient was transported to: same day Patient's condition: stable Implants: N/A Indications: 33 yo ( x3) with persistent left sided pelvic pain. Findings: No evidence of overt pathology or endometriosis. Procedure Description: Patient was taken to the OR with IV fluids running. Preoperative antibiotics were not indicated. The patient urinated immediately prior to arriving in the OR. Anesthesia was established, and the patient was positioned into the modified dorsolithotomy position using yellowfin stirrups. The arms were tucked. The vaginal area was prepped with Povidine solution, and the abdomen was prepped with chlorhexidine, and allowed to dry for 3 minutes. A timeout was performed. A side loading Graves speculum was used to visualize the cervix. The anterior lip was grasped with a single-tooth tenaculum, and Hulka manipulator was placed without issue. Upon removal of the single-tooth tenaculum, bleeding was noted from one of the tenaculum sites. This was addressed and hemostasis was achieved using silver nitrate. The speculum was removed, gloves were changed, and attention was turned to the abdomen. Mckoy's point was delineated using a surgical marker, 3 cm inferior to the rib margin and 3 cm distal to the midline. The intended site was injected with Marcaine and elevated by hand. A Veress needle was introduced to 2 clicks, but attachment of gas found elevated entrance pressures; therefore the Veress was removed. Tell clips were then used to elevate the tissues given the suspicion that grasping with hands was tucking the subcutaneous tissues. The Veress needle was then again introduced via 2 clicks; however, entrance pressures were again noted to be elevated. I then attempted an Optiview entrance using a 5 mm port but was unable to reliably enter the cavity. A decision was made to abandon Mckoy's point and try for an 8 infraumbilical approach to better assess the region. Attention was turned to the infraumbilical region. I favored an area immediately inferior to her present scar, and palpation was reassuring. This region was tented up using towel clips and injected with Marcaine. #10 blade was used to create a small defect, and again, Veress needle approach was attempted. However, we again ran into problems with elevated entrance pressures; therefore, we decided to enter using a son technique. The incision was extended using a #11 blade and Beverly tractors were used to visualize the fascia, which was grasped using Aj clamps and incised under direct visualization. A 10 mm port was then introduced, and the abdomen was insufflated. Careful evaluation of the abdomen found notable evidence of preperitoneal air, and there was no evidence of damage to the bowels. Particular care was done to assess the area in which the Mckoy's point attempt was made; assessment of this region found no evidence of transversing of the fascia, suggesting our original problem was that we were not getting all the way through. A 5 mm port was then placed in the right lower quadrant using direct visualization without issue. Attention was then turned to the pelvis. Careful assessment of the posterior cul-de-sac, uterosacral ligaments, retroovarian region, adnexa, anterior cul-de-sac, round ligament, left lower quadrant, and right lower quadrant all found no overt evidence of pathology. A small, unremarkable, paratubal cyst was noted in the left adnexa. Changes consistent with history of tubal ligation was also appreciated. There was modest dilation of the adnexal vessels on the right side. There was no appreciable scarring noted. Pictures were taken accordingly. No biopsies were warranted. Of note, careful assessment of the ovaries found no overt evidence of concerning pathology or notable cysts. The gas was shut off and carefully evacuated from both the abdomen and preperitoneal space. As retractors were used to visualize the fascia at the 10 mm port site, and the fascia was closed using an 0 Vicryl. A subcutaneous stitch was placed at both the umbilical site as well as the port site of the right lower quadrant due to moderate bleeding at both sites. Good hemostasis was achieved. Skin incisions were closed with a 3-0 Monocryl; the skin incision of the umbilical port site was closed in a running fashion while the other 2 ports required only an interrupted stitch. The abdomen was then washed and once dry, Dermabond was applied. Attention was turned to the vagina; the Hulka manipulator was removed without issue. Speculum exam appreciated good hemostasis. All counts were correct. The patient tolerated the procedure well and was taken to recovery without issue. Date of Procedure: 11/07/24
[2024-11-07] MEDS: fentaNYL 100 MCG/2 ML VIAL IVP (09:38)
--- NOTE | 2024-11-07 13:21 | W.ANESPOSTOP ---
Postoperative Evaluation Date, Time and Location Date Performed: 11/07/24 Time Performed: 13:00 Patient Location: Day Surgery Unit Vital Signs Most Recent Imported Vital Signs: Most Recent Vital Signs Temp Pulse Resp BP Pulse Ox 36.2 C L 70 16 107/62 96 11/07/24 11:15 11/07/24 11:15 11/07/24 11:15 11/07/24 11:15 11/07/24 11:15 Pain Score Most Recent Pain Score: Most Recent Pain Score Pain Level 0 11/07/24 11:15 Assessment Mental Status: Awake (Alert & Oriented to Patient Baseline) Airway and Respiratory Function: Patent airway with normal (patient baseline) respiratory exam Cardiovascular Function: Hemodynamically Stable Hydration Status: Adequately Hydrated Nausea & Vomiting: No Nausea or Vomiting Pain: Pain is tolerable per patient Peripheral Nerve Block: Patient did not receive a nerve block
== END 2024-11-07 13:00 | disposition home or self-care (01) ==
PROVIDERS: PCP Internal Medicine; Visit Provider Obstetrics & Gynecology
PROC: (CPT 49320; principal; 2024-11-07 07:30)
DX: R10.2 Pelvic and perineal pain (principal); E28.2 Polycystic ovarian syndrome
CPT/HCPCS: 49320; 36415; 81025; 86850; 86900; 86901; J0131; J0665; J1100; J1885; J2003; J2250; J2405; J2704; J3010

== ENCOUNTER 2024-11-30 09:47 | Outpatient (CLI) | payer BC, SELFPAY ==
--- NOTE | 2024-11-30 | DI.RAD_ITS ---
Exam(s) XR CHEST 2V PA LATERAL EXAM: XR CHEST 2V PA LATERAL CLINICAL HISTORY: ACUTE URI J06.9. TECHNIQUE: 2D digital imaging was performed. COMPARISON: CR XR CHEST 2V PA LATERAL from 04/19/2024 FINDINGS: 2 views: Heart size is normal. The mediastinum is not widened. Lungs are clear. No infiltrates nor pleural effusions. IMPRESSION: No acute pulmonary findings. DATA REPOSITORY: RADIATION DOSE DELIVERED:
== END 2024-11-30 10:07 ==
LOC: DI 09:48
PROVIDERS: PCP Internal Medicine; Visit Provider Physician Assistant Medical
DX: J06.9 Acute upper respiratory infection, unspecified (principal)
CPT/HCPCS: 71046